=== PATIENT | male | born 1960 | race Caucasian/White ===

== ENCOUNTER → 2016-12-14 | Outpatient (CLI) | payer OTHER ==
[2016-12-12 14:26] VITALS: BMI 33.9
[2016-12-14 13:11] VITALS: BP 134/86; PULSE 125; RESP 16
--- NOTE | 2016-12-14 13:53 | P.CONS ---
History of Present Illness - Reason for Consult Consult date: 12/14/16 - History of Present Illness This is a follow-up visit on this 56 years old male with a chronic history of severe neck pain and low back pain, patient was seen in the past 2 years ago, currently did radiofrequency ablation of the sacroiliac joint, currently patient complaining of severe low back pain with radiation to the posterior aspect of his lower extremity bilaterally, and also is complaining of severe neck pain with radiation to the upper extremity associated with numbness and tingling sensations, he denies any motor or sensory deficits and he reported that the intensity of the pain is interfering with his quality of life, he tried medication management without any significant improvement, he tried physical therapy without any significant improvement he had only short-term benefit from physical therapy, and he is not interested in having surgical interventions Past Medical History Past Medical History: Diabetes Mellitus, Hypertension, Sleep Apnea/CPAP/BIPAP Additional Past Medical History / Comment(s): MIGRAINES, DIVERTICULITIS, UMBILICAL HERNIA, ATHLETES FOOT, RINGING IN EARS, DEGENERATIVE DISC DISEASE History of Any Multi-Drug Resistant Organisms: None Reported Past Surgical History: Hernia Repair, Orthopedic Surgery Additional Past Surgical History / Comment(s): RT ROTATOR CUFF , CARPAL TUNNEL, INGUINAL HERNIA REPAIR X3, ARTHROSCOPY CHACHO KNEES. RT ELBOW CUBITAL ULNAR SX, PREVIOUS PAIN CLINIC PROCEDURES, RECENT INJECTIONS IN KNEES, WRISTS, ELBOW Past Anesthesia/Blood Transfusion Reactions: Previous Problems w/ Anesthesia Additional Past Anesthesia/Blood Transfusion Reaction / Comm: STATES HE NEEDED MORE ANESTHESIA Past Psychological History: Anxiety Smoking Status: Never smoker Past Alcohol Use History: Occasional Past Drug Use History: None Reported Medications and Allergies Home Medications Medication Instructions Recorded Confirmed Type Aspirin 162 mg PO DAILY 09/22/13 12/12/16 History Ibuprofen [Ibuprofen] 1 tab PO QID 09/22/13 12/12/16 History Lactobacillus Acidophilus 1 tab PO DAILY 09/22/13 12/12/16 History [Acidophilus] Lisinopril-Hctz 20-25 mg 1 tab PO QAM 09/22/13 12/12/16 History [Zestoretic 20-25] metFORMIN HCL [Glucophage] 2,000 mg PO QAM 09/22/13 12/12/16 History Cyclobenzaprine [Flexeril] 10 mg PO TID 10/15/13 12/12/16 History Glimepiride [Amaryl] 4 mg PO QAM 11/24/13 12/12/16 History Dicyclomine [Bentyl] 20 mg PO DAILY 12/12/16 12/12/16 History Ergocalciferol [Vitamin D2] 50,000 unit PO Q7D 12/12/16 12/12/16 History HYDROcodone/APAP 10-325MG [[place] 1 tab PO Q6H 12/12/16 12/12/16 History 10-325] Nystatin 100,000Unit/gm Cream 1 applic TOPICAL DAILY PRN 12/12/16 12/12/16 History [Mycostatin Cream] Omeprazole 20 mg PO DAILY 12/12/16 12/12/16 History Triamcinolone 0.1% Cream [Kenalog] 1 applic TOPICAL DAILY 12/12/16 12/12/16 History amLODIPine BESYLATE [Norvasc] 5 mg PO DAILY 12/12/16 12/12/16 History Ammonium Lactate Cream [Lac-Hydrin 1 applic TOPICAL DAILY 12/14/16 12/14/16 History 12% Cream] Allergies Allergy/AdvReac Type Severity Reaction Status Date / Time tramadol HCl [From Ultram] Allergy Unknown Abdominal Verified 12/14/16 13:13 Pain pregabalin [From Lyrica] AdvReac Unknown INCREASED Verified 12/14/16 13:13 DEPRESSION propoxyphene napsylate AdvReac Unknown LOSS OF Verified 12/14/16 13:13 [From Darvocet-N 100] COORDINATION ANTIDEPRESSANTS AdvReac STATES Uncoded 12/14/16 13:13 INCREASE DEPRESSION Physical Exam Vitals: Vital Signs Pulse Resp BP Pulse Ox 12/14/16 12:54 125 H 16 134/86 97 Physical Examinations : 1-Constitutiona : Cooperative , not in acute distress . 2-HEENT : nech ; supple , no Lymphadenopathy , normal thyroid size . eyes : no ptosis , no icterus, no photophobia . ENT : normal of hearing , normal oropharynx , no Thrush . 3- Respiratory : Chest clear to auscultations Bilaterally , no wheezing , no Rhonchi . 4- Cardiovascular : regular rate and rhythem , S1 , S2 , no S3 , no S4. 5- Gastrointestinal : abdomen soft no tenderness , bowel sounds positive all four quadrents , no organomegally . 6- Genitourinary : Defferred . 7- neurologic : Cranial nerve II to XII intact , no focal neurological deffecit . 8-psychatric : alert , oriented X 3 , appropriate affect , intact judgment and insight . 9-Lymphatic : no Lymphadenopathy . 10- musculoskeltal : cervical spine = motor stregnth in the deltoid and biceps, motor stregnth biceps and the wrist extensors (C6) . motor stregnth in the triceps muscle . deep tendon reflexes normal at the biceps , l normal at Brachioradialis normal at the triceps positive cervical facet loading test . , Lumber spine = normal moter stegnth lower extremities ,thigh and legs .5/5 deep tendon reflexes : normal Knee Jerk , normal ankle Jerk . positive lumber facet Loading Test strait leg raising test positive at 30 degree , RT ,LT , Fabere test positive RT and positive LT . Sever tenderness over the Sacroiliac joint on the Right , and Left side Results Labs: MRI of the lumbar and cervical spine done in 2013 showed cervical multilevel cervical degenerative disc disease and the MRI of the lumbar spine showed patient had multilevel lumbar disc disease and lumbar facet arthropathy Assessment and Plan Plan: Assessment and plan= chronic low back pain secondary to lumbar degenerative disc disease , lumbar spondylosis with lumbar facet arthropathy ,and bilateral sacroiliitis chronic severe neck pain secondary to cervical degenerative disc disea Interventional pain management=scheduled patient to have diagnostic medial branch block lumbar area at L3-4/L4-L5/L5-S1,procedure risks and benefits and alternatives discussed with the patient and he agreed with the proceeding and I explained to the patient ,and he agreed with the preceding, if had had positive result ,then we will proceed with the radiofrequency ablation , Time with Patient: Greater than 30
== END | disposition home or self-care (01) ==
LOC: PNWHC3 12:41
PROVIDERS: ATTEND Specialist
DX: M51.36 Other intervertebral disc degeneration, lumbar region (principal); M50.30 Other cervical disc degeneration, unspecified cervical region; M47.816 Spondylosis without myelopathy or radiculopathy, lumbar region; M46.86 Other specified inflammatory spondylopathies, lumbar region; M46.1 Sacroiliitis, not elsewhere classified
CPT/HCPCS: 99211

== ENCOUNTER 2016-12-20 08:06 | Day surgery (SDC) | payer OTHER ==
[2016-12-20] MEDS ORDERED: LACTATED RINGERS 1,000 ML IV SCH (08:30)
[2016-12-20 08:37] VITALS: RESP 18; TEMP 98.2
[2016-12-20 08:49] LABS: Glucose,Whole Blood 159 mg/dL (75-99)
[2016-12-20] MEDS ORDERED: LIDOCAINE 1% 20 ML VIAL (10MG/ML) FOR IV START INTRADERMA ONE (08:50)
--- NOTE | 2016-12-20 09:08 | P.PCN ---
Date of Procedure: 12/20/16 Surgeon: Brandon Leone Pathology: none sent Condition: stable Disposition: PACU Description of Procedure: PREOPERATIVE DIAGNOSIS: L3-L4, L4-L5, and L5-S1 spondylosis without myelopathy and facet arthropathy. POSTOPERATIVE DIAGNOSIS: L3-L4, L4-L5, and L5-S1 spondylosis without myelopathy and facet arthropathy. PROCEDURE DESCRIPTION: Patient presents for L3-L4, L4-L5 and L5-S1 diagnostic medial branch blocks under fluoroscopic guidance. The procedure is performed using fluoroscopic guidance during needle placement to assure proper position and maximize safety. ANESTHESIA: Local with 1% lidocaine; conscious sedation with Versed only EBL: Minimal PROCEDURE INDICATION: Patient with lumbar facet arthropathy signs and symptoms, failed conservative therapy, here for diagnostic medial branch block #1 after having good relief from RFA in 2007. Pt does not take any blood thinning medications. PROCEDURE DESCRIPTION: The patient was seen and identified in the preoperative area. Risks, benefits, complications, and alternatives were discussed with the patient (including but not limited to incomplete pain relief, bleeding, infection, nerve damage, and allergies to medications), the patient agreed to proceed with the procedure and signed the consent after all questions were answered. Patient was taken to the OR and time out was completed to verify proper patient, position, laterality of pain, and allergies. Pt was placed in the prone position and a pillow was placed under the abdomen to reduce lumbar lordosis. The lumbosacral area was prepped and draped in the usual sterile fashion. Using oblique fluoroscopy, the eye of the "Shabbir dog" of right L4 vertebral body, which corresponds to the path of the medial branch originating from the level above, which is L3 in this case, was identified. Subsequently, a 22-gauge 3.5-inch spinal needle was inserted under fluoroscopic guidance toward the eye of the "Shabbir dog" of the right L4 vertebral body, corresponding to the junction of the superior articular process and the transverse process of the pedicle of the same level. After needle tip confirmation on lateral view and after negative aspiration for CSF and blood and without paresthesias, 1 mL of a 6 ml solution of 0.5% preservative-free bupivacaine and 40 mg Kenalog was injected. Subsequently the needle was withdrawn intact and the same procedure was repeated for the right L4, right L5, left L3, left L4, and left L5 medial branches which together with right L3 medial branch correspond to the sensory innervation of the bilateral L3-L4, L4-L5, and L5-S1 facet joints. Needle was withdrawn intact after each injection. At the end of the procedure, the skin was cleansed and bandages were applied. COMPLICATIONS: None. DISPOSITION/PLAN: The patient taken to the recovery area after the procedure in a stable condition for observation. Patient was reexamined prior to discharge and there were no issues. Patient was discharged home, accompanied by an adult, after meeting discharged criteria. Discharge instructions were give to the patient by the staff. Patient was specifically instructed not to drive today and to rest for the rest of the day. Patient will follow up for repeat MBB at next visit.
[2016-12-20] MEDS ORDERED: IV FLUID CONTINUATION 1,000 ML IV ONE (09:17)
[2016-12-20 09:20] VITALS: BP 138/75
[2016-12-20 09:31] LABS: Glucose,Whole Blood 142 mg/dL (75-99)
--- NOTE | 2016-12-20 09:34 | FL ---
Fluoroscopy HISTORY: Pain 9 seconds fluoroscopy time supplied to the referring clinician. 6 intraoperative C-arm images docume nt the procedure. See dictated report from anesthesia.
[2016-12-20 09:39] VITALS: PULSE 100
== END 2016-12-20 09:53 | disposition home or self-care (01) ==
LOC: ORPAIN 08:06
PROVIDERS: ATTEND Anesthesiology
DX: G89.29 Other chronic pain (principal); M47.816 Spondylosis without myelopathy or radiculopathy, lumbar region; M47.817 Spondylosis without myelopathy or radiculopathy, lumbosacral region; M46.96 Unspecified inflammatory spondylopathy, lumbar region; M46.1 Sacroiliitis, not elsewhere classified; M50.30 Other cervical disc degeneration, unspecified cervical region; I10 Essential (primary) hypertension; E11.9 Type 2 diabetes mellitus without complications; F41.9 Anxiety disorder, unspecified; G47.30 Sleep apnea, unspecified; Z99.89 Dependence on other enabling machines and devices; Z79.82 Long term (current) use of aspirin; Z79.899 Other long term (current) drug therapy; Z79.1 Long term (current) use of non-steroidal anti-inflammatories (NSAID); Z79.891 Long term (current) use of opiate analgesic; Z79.84 Long term (current) use of oral hypoglycemic drugs; Z88.8 Allergy status to other drugs, medicaments and biological substances
CPT/HCPCS: 64493; 64494; 64495; 99152; J2250; J3301

== ENCOUNTER → 2017-05-16 | Outpatient (CLI) | payer OTHER ==
--- NOTE | 2017-05-16 15:59 | XR ---
Left shoulder HISTORY: Left shoulder pain 3 views of the left shoulder No comparisons Mild arthropathy present at the acromioclavicular joint. Bone mineralization, joint spaces and alignm ent are maintained. Left lung apex as visualized is normal. No fracture or dislocation. IMPRESSION: Mild acromioclavicular joint arthropathy, consider shoulder MRI.
== END | disposition home or self-care (01) ==
LOC: RADXRMAIN 15:03
PROVIDERS: ATTEND Family Medicine
DX: M12.812 Other specific arthropathies, not elsewhere classified, left shoulder (principal)

== ENCOUNTER → 2017-05-30 | Outpatient (CLI) | payer OTHER ==
--- NOTE | 2017-05-30 23:13 | MR ---
EXAMINATION TYPE: MR shoulder LT wo con DATE OF EXAM: 05/30/2017 COMPARISON: Radiograph 05/16/2017 HISTORY: 57-year-old male with left shoulder pain, decreased range of motion for 3 months, no trauma TECHNIQUE: Multiplanar, multisequence imaging of the left shoulder is performed without contrast. FINDINGS: There is intermediate signal within the intracapsular portion of the lung and biceps tendon. The extr acapsular portion remains appropriately situated along the bicipital groove. Some inhomogeneous signal of the subscapularis tendon. The majority of the subscapularis tendon is in tact. Mild degenerative joint space narrowing and marginal spurring with capsular hypertrophy at the acromi oclavicular joint. Mild subacromial/subdeltoid bursal effusion. Heterogeneous signal both supraspinatus and infraspinatus tendons. There is intrasubstance change and tear involving the anterior mid supraspinatus tendon at the footprint measuring 1.2 cm AP. There is bursal sided fraying of the infraspinatus tendon and likely some shallow articular sided or intrasubs tance tear of the infraspinatus tendon with some edema and fluid seen delaminating along the infraspi natus myotendinous junction. No high-grade or full-thickness tear seen of the rotator cuff. Minimal fatty streaks throughout the rotator cuff musculature. Evaluation of the glenohumeral joint shows some increased signal along the posterior superior labrum with suggestion of a tiny 4 mm para labral cyst along the superior aspect of the posterior labrum, co evgeny image 13. Overall glenohumeral joint articular cartilage appears maintained. No Hill-Sachs deformity or os acromiale. No suspicious bone marrow replacement. IMPRESSION: 1. Diffuse rotator cuff tendinosis. There is intrasubstance tear of the anterior to mid supraspinatus tendon, bursal sided fraying of the infraspinatus tendon, and either shallow articular sided vs intr asubstance tearing of the infraspinatus tendon allowing for some fluid to delaminate along the infras pinatus myotendinous junction. 2. No high-grade partial or full-thickness rotator cuff tear. Minimal fatty streaks throughout the ro tator cuff musculature. 3. Mild AC joint narrowing, mild subacromial/subdeltoid bursitis, and mild intracapsular long head bi ceps tendinosis. 4. Degenerative signal in the posterior superior labrum, possible small SLAP tear with a tiny 4 mm pa ralabral cyst.
== END | disposition home or self-care (01) ==
LOC: RADMRIMAIN 21:11
PROVIDERS: ATTEND Family Medicine
DX: M75.102 Unspecified rotator cuff tear or rupture of left shoulder, not specified as traumatic (principal); M25.812 Other specified joint disorders, left shoulder; M67.814 Other specified disorders of tendon, left shoulder

== ENCOUNTER → 2017-06-27 | Outpatient (CLI) | payer OTHER ==
--- NOTE | 2017-06-27 13:32 | XR ---
Left foot HISTORY: Pain 3 views of the left foot Second digit shows suspected posterior dislocation of second metatarsal tarsal phalangeal joint. No e vident fracture. Hallux valgus deformity present at the first digit with some soft tissue swelling. D egenerative changes are present at the intertarsal joints, tarsometatarsal joints. IMPRESSION: Second digit dislocation, osteoarthritis
== END | disposition home or self-care (01) ==
LOC: RADXRMAIN 11:34
PROVIDERS: ATTEND Podiatrist Foot Surgery
DX: S93.12 Dislocation of metatarsophalangeal joint (principal); M19.072 Primary osteoarthritis, left ankle and foot

== ENCOUNTER → 2017-10-31 | Outpatient (CLI) | payer OTHER ==
--- NOTE | 2017-10-31 13:17 | EST ---
EXERCISE STRESS DATE OF SERVICE: 10/31/2017 AGE: 57 SEX: Male HT: 5'5" WT: 210 PROTOCOL: Exercise treadmill stress test STAGE: I DURATION OF EXERCISE: 2 minutes 33 seconds HEART RATE REST: 94 BLOOD PRESSURE REST: 134/77 MAXIMUM HEART RATE ACHIEVED: 140 MAXIMUM BLOOD PRESSURE: 196/85 85% MPHR: 139 100% MPHR: 163 METS: 4.0 INDICATIONS: Chest pain. CLINICAL INFORMATION: STRESS DATA: Heart rate 94, pressure is 134/77 mmHg. Baseline EKG showed sinus rhythm. The patient exercised on the treadmill according to Guerrero protocol for a total of 2 minutes 33 seconds and achieved 4.0 METs. Max heart rate was 140 beats per minute which is about 85% of maximum predicted heart rate. Maximum blood pressure is 196/85 mmHg. Clinically the patient developed chest tightness post exercise. The EKG showed about [address]-segment changes, most prominent in the inferior leads. CONCLUSIONS: 1. Poor exercise tolerance. 2. Chest discomfort on recovery phase. 3. Mild EKG changes in response to exercise did not meet the criteria for ischemia. 4. If the patient continues to have chest discomfort, stress test with imaging modality is recommended. MMODL / IJN: [id number] /
== END | disposition home or self-care (01) ==
LOC: RADNMMAIN 10:43
PROVIDERS: ATTEND Family Medicine
DX: R07.89 Other chest pain (principal); R94.31 Abnormal electrocardiogram [ECG] [EKG]
CPT/HCPCS: 93017

== ENCOUNTER 2017-11-15 09:28 | Day surgery (SDC) | payer OTHER ==
[~2017-11-15 09:28] MED LIST: LACTATED RINGERS 1,000 ML IV SCH
[2017-11-15 10:31] VITALS: TEMP 98.6
[2017-11-15] MEDS ORDERED: LIDOCAINE 1% 20 ML VIAL (10MG/ML) FOR IV START INTRADERMA ONE (10:42)
[2017-11-15 10:43] LABS: Glucose,Whole Blood 107 mg/dL (75-99)
--- NOTE | 2017-11-15 11:40 | P.PCN ---
Date of Procedure: 11/15/17 Procedure(s) Performed: PREOPERATIVE DIAGNOSIS: 1-Lumbar Spondylosis with Facet Arthropathy without myelopathy. POSTOPERATIVE DIAGNOSIS: 1- Lumbar Spondylosis with Facet Arthropathy without myelopathy. PROCEDURES : Left Radiofrequency thermocoagulation, L3-L4, L4-L5, and L5-S1 medial branch, with fluoroscopic guidance ANESTHESIA: Moderate sedation with intravenous versed 4 mg and fentaneyl 100 mcg, and local infiltration with Ropivacaine 0.5 % . EBL: Minimal PROCEDURE INDICATION: The patient with low back pain secondary to lumbar facet arthropathy who had more than 50% relief of her pain with previous diagnostic lumbar medial branch block with bupivacaine. PROCEDURE DESCRIPTION / TECHNIQUE: The patient was seen and identified in the preoperative area. Risks, benefits, complications, including but not limited to risk of infection ,bleeding , allergic reactions to the medications and no complete pain releife , and alternatives were discussed with the patient, the patient agreed to proceed with the procedure and signed the consent. IV was started. Vital signs remained stable throughout the procedure. Patient was taken to the OR and time out was completed. The patient was placed in the prone position on the procedure table. The lumber area was prepped and draped in the usual sterile fashion. . Vital signs were closely monitored during the procedure .IV sedation was used during the procedure to decrease patients anxiety. Using AP and then oblique fluoroscopy, the ``eye of the Shabbir dog corresponding to the connection between the superior and transverse articular processes of left L3, L4, and L5 were identified, marked, and localized with 1 % lidocaine. Subsequently, a [id number] radiofrequency cannula with a 10- mm active tip was advanced guided by fluoroscopy to each of the ``eyes of the Shabbir dog at left L3, L4, and L5. Each site then underwent sensory testing at 50 Hz and 0 to 1 volt and motor testing at 2.5 Hz and 0 to 3 volt with local stimulation, but no radicular symptoms down the legs. Thereafter the left L3-4, L4-5, and L5-S1 sites underwent radiofrequency thermocoagulation at 80 degrees celsius for 90 seconds after injecting 0.5 ml of PF Ropivacaine 1ml then After the thermocoagulation done , 1 ml of the block solution containing Kenalog 40 mg and 3 ml of Ropivacaine 0.5% was injected at the left L3-4 , L4-5 , and L5-S1, levels after negative aspiration of CSF and blood and with no paresthesias. Cannulas were retracted while injecting lidocaine 1% until the needle is out. At the end of the procedure, the skin was cleansed and bandages were applied. COMPLICATIONS: No acute complications. DISPOSITION / PLANS: The patient was placed in a supine position and transferred to the recovery area in a stable condition for observation and was discharged from the recovery room after meeting discharge criteria. Home discharge instructions given to the patient by the staff. The patient was reexamined prior to discharge. The patient will schedule a follow up in the clinic in 2-4 weeks. we will Schedule,the patient to have radiofrequency on the right side
[2017-11-15] MEDS ORDERED: IV FLUID CONTINUATION 1,000 ML IV ONE (11:45)
[2017-11-15 11:52] LABS: Glucose,Whole Blood 88 mg/dL (75-99)
--- NOTE | 2017-11-15 11:55 | FL ---
EXAMINATION TYPE: FL guided pain mgmt statistic DATE OF EXAM: 11/15/2017 HISTORY: Flouroscopy time 7 seconds of fluoroscopy provided. IMPRESSION: 1. Fluoroscopy time.
[2017-11-15 12:07] VITALS: BP 143/87; PULSE 98; RESP 18
== END 2017-11-15 12:21 | disposition home or self-care (01) ==
LOC: ORPAIN 09:28
PROVIDERS: ATTEND Specialist
DX: M47.816 Spondylosis without myelopathy or radiculopathy, lumbar region (principal); I25.10 Atherosclerotic heart disease of native coronary artery without angina pectoris; I10 Essential (primary) hypertension; G47.33 Obstructive sleep apnea (adult) (pediatric); E11.9 Type 2 diabetes mellitus without complications; Z88.5 Allergy status to narcotic agent; Z88.8 Allergy status to other drugs, medicaments and biological substances
CPT/HCPCS: 64635; 64636 ×2; J2250; J3301; J3010; 99152

== ENCOUNTER → 2017-12-03 | Day surgery (SDC) | payer OTHER ==
[2017-11-30 10:01] VITALS: BMI 34.9
[~2017-12-03] MED LIST changes: +LACTATED RINGERS 1,000 ML IV ONE
[2017-12-03 07:28] VITALS: TEMP 98.4
[2017-12-03 07:32] LABS: Glucose,Whole Blood 114 mg/dL (75-99)
--- NOTE | 2017-12-03 07:54 | P.PCN ---
Date of Procedure: 12/03/17 Surgeon: Everett Hare Pathology: none sent Condition: stable Disposition: PACU Description of Procedure: PREOPERATIVE DIAGNOSIS: Lumbar spondylosis without myelopathy, morbid obesity POSTOPERATIVE DIAGNOSIS: Lumbar spondylosis without myelopathy,morbid obesity PROCEDURES : Radiofrequency thermocoagulation, L3-L4, L4-L5, and L5-S1 medial branch, with fluoroscopic guidance ANESTHESIA: IV moderate conscious sedation with versed and fentanyl and local infiltration with lidocaine 1% 5 ml EBL: Minimal PROCEDURE INDICATION: The patient with low back pain secondary to lumbar facet arthropathy who had more than 50% relief of her pain with previous diagnostic lumbar medial branch block with bupivacaine. PROCEDURE DESCRIPTION / TECHNIQUE: The patient was seen and identified in the preoperative area. Risks, benefits, complications, including but not limited to risk of infection ,bleeding , allergic reactions to the medications and no complete pain relief , and alternatives were discussed with the patient, the patient agreed to proceed with the procedure and signed the consent. IV was started. Vital signs remained stable throughout the procedure. Patient was taken to the OR and time out was completed. The patient was placed in the prone position on the procedure table. The lumber area was prepped and draped in the usual sterile fashion. . Vital signs were closely monitored during the procedure .IV sedation was used during the procedure to decrease patients anxiety. The target points were identified as follows: For the L5-S1 level which corresponds to the dorsal ramus of L5 the target point was at the superior medial aspect of the sacral ala on the Rt- side of the spine on the AP view of fluoroscopy and for the L2, L3, and L4 medial branches the target points were at the connection between the transverse process and the superior articular process of L3, L4, and L5 vertebra respectively on the Rt oblique view of fluoroscopy. skin was marked, and localized with 1% lidocaine at these points. Subsequently, an 18 [id number] radiofrequency needles with a 10-mm curved active tips were advanced guided by fluoroscopy to each of the target points mentioned above in a superior medial direction to get the active tips as parallel as possible to the medial branches tracks. AP, oblique, and lateral views of fluoroscopy were used to verify needle tips position. Each level then underwent motor testing at 2.5 Hz and 0 to 3 volt with local stimulation, but no radicular symptoms down the legs. Thereafter radiofrequency thermocoagulation at 80 degrees celsius for 90 seconds after injecting 1 ml of PF the ropivacaine 0.5%(3 mls) with 40 mg of Depo-Medrol. At the end of the procedure, the skin was cleansed and bandages were applied. COMPLICATIONS: No acute complications. DISPOSITION / PLANS: The patient was placed in a supine position and transferred to the recovery area in a stable condition for observation and was discharged from the recovery room after meeting discharge criteria. Home discharge instructions given to the patient by the staff. The patient was reexamined prior to discharge. The patient will schedule a follow up in the clinic in 2-4 weeks.
[2017-12-03 08:14] VITALS: BP 107/71; PULSE 101; RESP 16
--- NOTE | 2017-12-03 08:54 | FL ---
EXAMINATION TYPE: FL guided pain mgmt statistic DATE OF EXAM: 12/03/2017 HISTORY: Flouroscopy time 15 seconds of fluoroscopy provided. IMPRESSION: 1. Fluoroscopy time.
== END | disposition home or self-care (01) ==
LOC: ORPAIN 06:36
PROVIDERS: ATTEND Anesthesiology
DX: M47.816 Spondylosis without myelopathy or radiculopathy, lumbar region (principal); E11.9 Type 2 diabetes mellitus without complications; I10 Essential (primary) hypertension; E66.01 Morbid (severe) obesity due to excess calories; Z88.5 Allergy status to narcotic agent; Z88.8 Allergy status to other drugs, medicaments and biological substances; Z68.34 Body mass index [BMI] 34.0-34.9, adult
CPT/HCPCS: 64635; 64636 ×2; J2250; J1030; J3010; 99152

== ENCOUNTER → 2018-01-01 | Outpatient (CLI) | payer OTHER ==
[2018-01-01 14:12] VITALS: BP 146/90; PULSE 102; RESP 18
--- NOTE | 2018-01-01 14:48 | P.PAINPG ---
Subjective Progress Note Date: 01/01/18 This is follow-up visit for this patient with a history of severe and chronic low back pain secondary to lumbar degenerative disc diseases , lumbar spondylosis with facet arthropathy, We have done interventional pain procedures radiofrequency ablation of the medial branch lumbar area, and that helped his low back pain significantly, he is currently complaining of severe left buttock pain, with occasional radiation to the groin area, Patients currently on Motrin 600 mg every 6 hours ,[place] 10/325 every 8 hours, Flexeril 10 mg every 8 hours Patient denies any side effects of the medication, denies excessive drowsiness or sleepiness, denies suicidal ideation, and reports that the current pain medication is helping to control the pain and improve activity of daily living Patient denies any motor or sensory deficit , patient denies any fever or night sweats, denies any change in the bowel movements or urination Physical Examinations : 1-Constitutional : Cooperative , not in acute distress . 2-HEENT : nech ; supple , no Lymphadenopathy , no Thyromegaly , normal thyroid size . eyes : no ptosis , no icterus, no photophobia . ENT : normal of hearing , normal oropharynx , no Thrush . 3- Respiratory : Chest clear to auscultations Bilaterally , no wheezing , no Rhonchi . 4- Cardiovascular : regular rate and rhythem , S1 , S2 , no S3 , no S4. 5- Gastrointestinal : abdomen soft no tenderness , bowel sounds positive all four quadrents , no organomegally . 6- Genitourinary : Defferred . 7- neurologic: Cranial nerve II to XII intact , no focal neurological deffecit . 8- Psychatric: alert , oriented X 3 , appropriate affect , intact judgment and insight . 9- Lymphatic : no Lymphadenopathy . 10- Musculoskeltal : exams of the cervical spine = motor strength normal bilateral upper extremities Ignorance of the left shoulder = abduction , and lateral rotation of the left shoulder associated with severe pain exams of the Lumber spine =motor strength lower extremities ,thigh and legs .5/5 deep tendon reflexes : normal Knee Jerk , normal ankle Jerk . lumber facet Loading Test negative Range of motion: Range of motion in flexion of the lumbar spine 30 degrees Range of motion range of motion of extension of the lumbar spine 10 Sever tenderness over the Sacroiliac joint on the Left side Assessment and plan = Chronic low back pain secondary to lumbar degenerative disc disease , lumbar spondylosis with facet arthropathy without myelopathy , left sacroiliitis Pain improved after the radiofrequency ablation of the medial branch lumbar area. Currently patient having pain secondary to left sacroiliitis , he will be good candidate to have left-sided sacroiliac joint steroid injections Patient will continue to use Motrin, [place] 10/325 every 6 hours, Flexeril 10 mg every 8 hours when necessary, his current prescription with refills from his primary care Objective - Vital Signs Vital signs: Vital Signs Temp Pulse 102 H 01/01/18 14:01 Resp 18 01/01/18 14:01 BP 146/90 01/01/18 14:01 Pulse Ox 97 01/01/18 14:01 Intake & Output 12/31/17 01/01/18 01/01/18 18:59 06:59 18:59 Weight 95.254 kg PQRS Measure Charge Sheet Measure #130: Documentation of Current Meds in Medical Chart: Patient's medications documented in chart Measure #226: Tobacco Use: Screen & Cessation Intervention: Pt not a tobacco user Measure #111: Pneumonia Vaccination: Pneumococcal vaccine NOT administered or previously given Measure #47: Advance Care Plan: Advance care planning discussed & documented, pt chose/unable to give Measure #412: Opioid Treatment Agreement: No documentation of signed opioid treatment agreement Measure #408: Opioid Therapy Follow-up Evaluation: Patient had NO f/u eval minimum every 3 months during opioid therapy Measure #317: Preventitive Care & Scrn High Bld Press & F/U: Pre-hypertensive or hypertensive BP documented, pt will f/u with PCP Measure #128: Body Mass Index (BMI) Screening & Follow-up: BMI documented ABOVE normal parameters - f/u documented Measure #131: Pain Assessment & Follow-up: Pain positive & plan documented, Follow-up scheduled Measure #431: Unhealthy Alcohol Use Preventative Care & Scrn: Patient not identified as an unhealthy alcohol user PQRS Narrative: Smoking Status Never smoker Do You Want the Pneumonia No Vaccine AT THIS TIME? Blood Pressure 146/90 Pain Intensity [Left Anterior 0 Groin] Hx Alcohol Use (MH) No Home Medications: Ambulatory Orders Aspirin 81 mg PO DAILY 09/22/13 Ibuprofen 600 mg PO QID 09/22/13 Lisinopril-Hctz 20-25 mg [Zestoretic 20-25] 1 tab PO QAM 09/22/13 metFORMIN HCL [Glucophage] 2,000 mg PO HS 09/22/13 Cyclobenzaprine [Flexeril] 10 mg PO TID PRN 10/15/13 Dicyclomine [Bentyl] 20 mg PO QAM PRN 12/12/16 Ergocalciferol [Vitamin D2] 50,000 unit PO Q30D 12/12/16 HYDROcodone/APAP 10-325MG [[place] 10-325] 1 tab PO Q6H 12/12/16 Nystatin 100,000Unit/gm Cream [Mycostatin Cream] 1 applic TOPICAL DAILY PRN Omeprazole 20 mg PO QAM 12/12/16 Triamcinolone 0.1% Cream [Kenalog 0.1% Cream] 1 applic TOPICAL DAILY PRN Ammonium Lactate Cream [Lac-Hydrin 12% Cream] 1 applic TOPICAL DAILY PRN Insulin Glargine,Hum.rec.anlog [Basaglar Kwikpen U-100] 70 unit SQ HS 11/15/17 Hydrocortisone Cream [Hydrocortisone 2.5% Cream] 1 applic TOPICAL BID 11/30/17 Lisinopril-Hctz 10-12.5 mg [Zestoretic 10-12.5] 1 tab PO HS 11/30/17 metroNIDAZOLE 0.75% CREAM [Metrocream] 1 applic TOPICAL DAILY 11/30/17 Controlled Substance Measures - Controlled Substance Measures Is patient prescribed a controlled substance at discharge?: No When asked, does pt state using other controlled substances?: No If prescribed controlled substance>3 days was MAPS reviewed?: No If Rx opioid, was Start Talking consent form obtained?: No If opioid is for acute pain is fill amount 7 days or less?: No Was information provided regarding opioid addiction?: No
== END | disposition home or self-care (01) ==
LOC: PNWHC3 13:01
PROVIDERS: ATTEND Anesthesiology
DX: G89.29 Other chronic pain (principal); M54.5 Low back pain; M51.36 Other intervertebral disc degeneration, lumbar region; M47.816 Spondylosis without myelopathy or radiculopathy, lumbar region; M46.86 Other specified inflammatory spondylopathies, lumbar region; M46.1 Sacroiliitis, not elsewhere classified; Z79.1 Long term (current) use of non-steroidal anti-inflammatories (NSAID); Z79.891 Long term (current) use of opiate analgesic; Z79.899 Other long term (current) drug therapy; Z98.890 Other specified postprocedural states
CPT/HCPCS: 99211

== ENCOUNTER 2018-01-17 06:52 | Day surgery (SDC) | payer OTHER ==
[2018-01-11 15:42] VITALS: BMI 35.2
[~2018-01-17 06:52] MED LIST changes: -LACTATED RINGERS 1,000 ML IV ONE; -LACTATED RINGERS 1,000 ML IV SCH; +SODIUM CHLORIDE 0.9% 500 ML 500 ML IV SCH
[2018-01-17 07:19] VITALS: RESP 16; TEMP 98.3
[2018-01-17] MEDS ORDERED: LIDOCAINE 1% 20 ML VIAL (10MG/ML) FOR IV START INTRADERMA ONE (07:34)
--- NOTE | 2018-01-17 08:19 | P.PCN ---
Date of Procedure: 01/17/18 Procedure(s) Performed: Procedure= Left sacral iliac joints steroid injection under fluoroscopy guidance Preoperative diagnosis= 1- left sacroiliitis 2-lumbar degenerative disc disease 3-lumbar facet arthropathy Postoperative diagnosis=1- left sacroiliitis 2-lumbar degenerative disc disease 3-lumbar facet arthropathy Complication = none Condition= stable Anesthesia= moderate sedation with intravenous Versed 3 mg , and fentanyl 100 micrograms and local infiltration with lidocaine 1% 3mL Indication for the procedure= patient complaining of low back pain , examination was positive for severe tenderness over the sacroiliac joints bilaterally and patient diagnosed with sacroiliitis, for this reason he/ she was good candidate for sacroiliac joint steroid injection. Description of the procedure= procedure risk and benefits discussed with the patient, including but not limited, risk of infection and bleeding, and ALLERGIC reaction to the medication and not complete pain relief and patient agreed with the preceding patient taken to the operating room, placed in prone position or standard monitors applied to the patient then after induction of anesthesia back prepped with chlorhexidine 3 times , Then under strict sterile technique, the left sacroiliac joint the which was identified under fluoroscopy guidance been local infiltration of the skin and subcu interstitial with lidocaine 1% then 25-gauge Quincke Needle advanced slowly under fluoroscopy and placed in the left sacroiliac joint needle placement confirmed with AP and oblique and lateral view and after appropriate needle placement confirmed and after negative aspiration, or heme , then Ropivacaine 0.5% 4 mL, and 40 mg of Kenalog mixed together and injected in the right sacroiliac joint after negative aspiration patient tolerated the procedure well without any complication.
[2018-01-17] MEDS ORDERED: IV FLUID CONTINUATION 500 ML IV ONE (08:24)
[2018-01-17 08:55] VITALS: BP 115/65; PULSE 102
--- NOTE | 2018-01-17 09:06 | FL ---
EXAMINATION TYPE: FL guided pain mgmt statistic DATE OF EXAM: 01/17/2018 HISTORY: Flouroscopy time 3 seconds of fluoroscopy provided. IMPRESSION: 1. Fluoroscopy time.
[2018-01-17 09:34] LABS: Glucose,Whole Blood 141 mg/dL (75-99)
== END 2018-01-17 09:25 | disposition home or self-care (01) ==
LOC: ORPAIN 06:52
PROVIDERS: ATTEND Specialist
DX: M46.1 Sacroiliitis, not elsewhere classified (principal); M51.36 Other intervertebral disc degeneration, lumbar region; M47.816 Spondylosis without myelopathy or radiculopathy, lumbar region; M50.30 Other cervical disc degeneration, unspecified cervical region
CPT/HCPCS: J2250; J3301; J3010; G0260; 27096

== ENCOUNTER → 2018-02-11 | Day surgery (SDC) | payer OTHER ==
[2018-02-05 12:39] VITALS: BMI 34.9
[~2018-02-11] MED LIST changes: +SODIUM CHLORIDE 0.9% 500 ML 500 ML IV ONE
[2018-02-11 09:31] VITALS: TEMP 98.8
[2018-02-11 09:34] LABS: Glucose,Whole Blood 125 mg/dL (75-99)
--- NOTE | 2018-02-11 09:46 | P.PCN ---
Date of Procedure: 02/11/18 Procedure(s) Performed: Procedure= bilateral sacral iliac joints steroid injection under fluoroscopy guidance Preoperative diagnosis= 1- Left sacroiliitis 2-lumbar degenerative disc disease 3-lumbar facet arthropathy Postoperative diagnosis=1- Left sacroiliitis 2-lumbar degenerative disc disease 3-lumbar facet arthropathy Complication = none Condition= stable Anesthesia= moderate sedation with intravenous Versed 2 mg , and fentanyl 100 micrograms Indication for the procedure= patient complaining of low back pain , examination was positive for severe tenderness over the sacroiliac joints bilaterally and patient diagnosed with sacroiliitis, for this reason he/ she was good candidate for sacroiliac joint steroid injection. Description of the procedure= procedure risk and benefits discussed with the patient, including but not limited, risk of infection and bleeding, and ALLERGIC reaction to the medication and not complete pain relief and patient agreed with the preceding patient taken to the operating room, placed in prone position or standard monitors applied to the patient then after induction of anesthesia back prepped with chlorhexidine 3 times , Then under strict sterile technique, the Left sacroiliac joint the which was identified under fluoroscopy guidance been local infiltration of the skin and subcu interstitial with lidocaine 1% then 22-gauge Quincke Needle advanced slowly under fluoroscopy and placed in the Left sacroiliac joint needle placement confirmed with AP and oblique and lateral view and after appropriate needle placement confirmed and after negative aspiration, or heme , then Ropivacaine 0.5% 3 mL, and 40 mg of Kenalog mixed together and injected in the right sacroiliac joint after negative aspiration patient tolerated the procedure well without any complication.
[2018-02-11 10:06] VITALS: BP 116/57; RESP 20
[2018-02-11 10:11] VITALS: PULSE 109
--- NOTE | 2018-02-11 10:39 | FL ---
EXAMINATION TYPE: FL guided pain mgmt statistic DATE OF EXAM: 02/11/2018 HISTORY: Flouroscopy time 4 seconds of fluoroscopy provided. IMPRESSION: 1. Fluoroscopy time.
== END | disposition home or self-care (01) ==
LOC: ORPAIN 09:08
PROVIDERS: ATTEND Specialist
DX: M46.1 Sacroiliitis, not elsewhere classified (principal); M51.36 Other intervertebral disc degeneration, lumbar region; M46.96 Unspecified inflammatory spondylopathy, lumbar region
CPT/HCPCS: J2250; J1030; J3010; G0260; 27096

== ENCOUNTER → 2018-03-14 | Outpatient (CLI) | payer OTHER ==
--- NOTE | 2018-03-14 15:03 | XR ---
Left hip HISTORY: Pain 2 views of the left hip Bone mineralization, joint spaces and alignment are maintained. There is mild marginal spurring prese nt. Slight excrescence thought present along the femoral neck. Probable phleboliths within the pelvis . IMPRESSION: Suspect mild osteoarthritis, correlate for possible femoral acetabular impingement.
== END | disposition home or self-care (01) ==
LOC: RADXRMAIN 14:03
PROVIDERS: ATTEND Family Medicine
DX: M25.552 Pain in left hip (principal)
CPT/HCPCS: 73502

== ENCOUNTER → 2018-03-25 | Outpatient (CLI) | payer OTHER ==
[2018-03-25 12:01] VITALS: BP 106/66; PULSE 89; RESP 18
--- NOTE | 2018-03-25 12:45 | P.PN ---
Subjective Progress Note Date: 03/25/18 This is follow-up visit for this patient with a history of severe and chronic low back pain secondary to lumbar degenerative disc diseases , lumbar spondylosis with facet arthropathy, and sacroiliitis We have done interventional pain procedures radiofrequency ablation of the medial branch lumbar area, and that helped his low back pain significantly, and we have done left-sided sacroiliac joint steroid injection 2 , and right side sacroiliac joint steroid injections 1 , he reported that he has more than 60% decrease in his pain level after each injection but the pain relief was only for a few weeks ,he is currently complaining of severe in buttock area, with occasional radiation to the groin area, Patients currently on Motrin 600 mg every 6 hours ,[place] 10/325 every 8 hours, Flexeril 10 mg every 8 hours Patient denies any side effects of the medication, denies excessive drowsiness or sleepiness, denies suicidal ideation, and reports that the current pain medication is helping to control the pain and improve activity of daily living Patient denies any motor or sensory deficit , patient denies any fever or night sweats, denies any change in the bowel movements or urination Physical Examinations : 1-Constitutional : Cooperative , not in acute distress . 2-HEENT : nech ; supple , no Lymphadenopathy , no Thyromegaly , normal thyroid size . eyes : no ptosis , no icterus, no photophobia . ENT : normal of hearing , normal oropharynx , no Thrush . 3- Respiratory : Chest clear to auscultations Bilaterally , no wheezing , no Rhonchi . 4- Cardiovascular : regular rate and rhythem , S1 , S2 , no S3 , no S4. 5- Gastrointestinal : abdomen soft no tenderness , bowel sounds positive all four quadrents , no organomegally . 6- Genitourinary : Defferred . 7- neurologic: Cranial nerve II to XII intact , no focal neurological deffecit . 8- Psychatric: alert , oriented X 3 , appropriate affect , intact judgment and insight . 9- Lymphatic : no Lymphadenopathy . 10- Musculoskeltal : exams of the cervical spine = motor strength normal bilateral upper extremities Ignorance of the left shoulder = abduction , and lateral rotation of the left shoulder associated with severe pain exams of the Lumber spine =motor strength lower extremities ,thigh and legs .5/5 deep tendon reflexes : normal Knee Jerk , normal ankle Jerk . lumber facet Loading Test negative Range of motion: Range of motion in flexion of the lumbar spine 30 degrees Range of motion range of motion of extension of the lumbar spine 10 Sever tenderness over the Sacroiliac joint bilaterally, but it's more severe on the left side Assessment and plan = Chronic low back pain secondary to lumbar degenerative disc disease , lumbar spondylosis with facet arthropathy without myelopathy , left sacroiliitis Pain improved after the radiofrequency ablation of the medial branch lumbar area. Currently patient having pain secondary to bilateral sacroiliitis , he will be good candidate to have the frequency ablation of the left-sided sacroiliac joint ( RFA left-sided L5-S1 dorsal ramus and RFA of the lateral branches S1 and S2 and S3 , and at the same time we can schedule patient to have right side sacroiliac joint steroid injection Patient will continue to use Motrin, [place] 10/325 every 6 hours, Flexeril 10 mg every 8 hours when necessary, his current prescription with refills from his primary care PQRS Measure Charge Sheet Measure #130: Documentation of Current Meds in Medical Chart: Patient's medications documented in chart Measure #226: Tobacco Use: Screen & Cessation Intervention: Pt not a tobacco user Measure #111: Pneumonia Vaccination: Pneumococcal vaccine NOT administered or previously given Measure #47: Advance Care Plan: Advance care planning discussed & documented, pt chose/unable to give Measure #412: Opioid Treatment Agreement: No documentation of signed opioid treatment agreement Measure #408: Opioid Therapy Follow-up Evaluation: Patient had NO f/u eval minimum every 3 months during opioid therapy Measure #317: Preventitive Care & Scrn High Bld Press & F/U: Normal blood pressure ,BP documented, pt will f/u with PCP Measure #128: Body Mass Index (BMI) Screening & Follow-up: BMI documented ABOVE normal parameters - f/u documented Measure #131: Pain Assessment & Follow-up: Pain positive & plan documented, Follow-up scheduled Measure #431: Unhealthy Alcohol Use Preventative Care & Scrn: Patient not identified as an unhealthy alcohol user PQRS Narrative: - Controlled Substance Measures Is patient prescribed a controlled substance at discharge?: No When asked, does pt state using other controlled substances?: No If prescribed controlled substance>3 days was MAPS reviewed?: No If Rx opioid, was Start Talking consent form obtained?: No If opioid is for acute pain is fill amount 7 days or less?: No Was information provided regarding opioid addiction?: No Objective - Vital Signs Vital signs: Vital Signs Temp Pulse 89 03/25/18 11:51 Resp 18 03/25/18 11:51 BP 106/66 03/25/18 11:51 Pulse Ox 97 03/25/18 11:51 Intake & Output 03/24/18 03/25/18 03/25/18 18:59 06:59 18:59 Weight 210 kg
== END ==
LOC: PNWHC3 10:44
PROVIDERS: ATTEND Specialist
DX: G89.29 Other chronic pain (principal); M51.36 Other intervertebral disc degeneration, lumbar region; M47.816 Spondylosis without myelopathy or radiculopathy, lumbar region; M46.96 Unspecified inflammatory spondylopathy, lumbar region; M46.1 Sacroiliitis, not elsewhere classified; Z79.891 Long term (current) use of opiate analgesic
CPT/HCPCS: 99211

== ENCOUNTER 2018-04-09 06:51 | Day surgery (SDC) | payer OTHER ==
[2018-04-05 10:24] VITALS: BMI 34.9
[~2018-04-09 06:51] MED LIST changes: -SODIUM CHLORIDE 0.9% 500 ML 500 ML IV ONE
[2018-04-09] MEDS ORDERED: LIDOCAINE 1% 20 ML VIAL (10MG/ML) FOR IV START INTRADERMA ONE (06:58)
[2018-04-09 07:14] VITALS: RESP 18; TEMP 97.8
[2018-04-09] MEDS ORDERED: LACTATED RINGERS 1,000 ML IV ONE ×2 (07:15)
[2018-04-09 07:16] LABS: Glucose,Whole Blood 173 mg/dL (75-99)
[2018-04-09] MEDS ORDERED: IV FLUID CONTINUATION 1,000 ML IV ONE (08:27)
[2018-04-09 08:45] LABS: Glucose,Whole Blood 131 mg/dL (75-99)
--- NOTE | 2018-04-09 08:46 | FL ---
Fluoroscopy HISTORY: Pain 15 seconds fluoroscopy time supplied to the referring clinician. 6 intraoperative C-arm images docum ent the procedure. See dictated report from anesthesia.
[2018-04-09 08:47] VITALS: BP 138/84; PULSE 90
--- NOTE | 2018-04-09 09:28 | P.PCN ---
Date of Procedure: 04/09/18 Procedure(s) Performed: PREOPERATIVE DIAGNOSIS: 1-Lumbosacral spondylosis with facet arthropathy without myelopathy. 2-Bilateral sacroiliit. post operative Diagnosis: . 1-Lumbosacral spondylosis with facet arthropathy without myelopathy. 2-Bilateral sacroiliit. PROCEDURES: 1-right sacroiliac joint steroid injection under fluoroscopy guidance 2- Left multi-site radiofrequency thermocoagulation/ablation of the S1, S2, and S3 lateral branchs. The procedure was performed using fluoroscopic guidance during needle placement to assure proper position and maximize safety . ANESTHESIA: LOCAL ANESTHESIA = moderate sedation with intravenous versed 3 mg and Fentanyle 100 mcg EBL: NONE INDICATION/MEDICAL NECESSITY: History of low back pain secondary to bilateral sacroiliitis and lumbosacral arthropathy unresponsive to more conservative treatments. The patient reported more than 50% relief of pain symptoms following 2 previous diagnostic blocks of the left sacroiliac joint, we didn't do the radiofrequency ablation of the left sacroiliac joint and also patient scheduled to have the right-sided sacroiliac joint steroid injection under fluoroscopy guidance PROCEDURE DESCRIPTION: The patient was seen and identified in the preoperative area. Risks, benefits, complications, and alternatives were discussed with the patient. The patient agreed to proceed with the procedure and signed the consent. Vital signs were checked before and after the procedure and they remained stable. Patient ambulated to the procedure room and time out was completed. The patient was placed in the prone position on the procedure table and a pillow was placed under the abdomen to reduce lumbar lordosis. The lumbosacral area was prepped and draped in the usual sterile fashion. Critical pause was taken. S1, S3, and S3 Lateral Branch RF: The medial margins of the Left SI joint identified using AP fluoroscopy. Under fluoroscopic guidance, three 10-cm 20 -gauge radiofrequency cannula with a 10- mm active tip were inserted at 2-3 mm medial to the medial edge of the left sacroiliac joint, total of 6 needles placed from the inferior margin of the left sacroiliac joint going superiorly, then , the sensory testing for lateral branch was performed at 50 Hz and 0 to 1 volt at the three levels with production of concordant pain starting at 0.5 volt. Motor stimulation was done at 2.5 Hz. No radicular symptoms or paresthesias were produced during the testing. Subsequently, the S1 ,S2 ,S3 lateral branch was subjected to a radiofrequency ablation at a mode of 90 seconds at 80 degrees Celsius at the 3 levels after negative motor and sensory testing and after injecting 0.5 ml of preservative free Bupivacaine 0.5 %. The S1-S2 and S3 foramina was not visualized The right sacroiliac joint steroid injections under fluoroscopy guidance, Then under strict sterile technique, I did the right sacroiliac joint the which was identified under fluoroscopy guidance been local infiltration of the skin and subcu interstitial with lidocaine 1% then 22-gauge Quincke Needle advanced slowly under fluoroscopy and placed in the right sacroiliac joint needle placement confirmed with AP and oblique and lateral view and after appropriate needle placement confirmed and after negative aspiration, or heme , then Ropivacaine 0.5% 3 mL, and 40 mg of Kenalog mixed together and injected in the right sacroiliac joint after negative aspiration patient tolerated the procedure well without any complication. COMPLICATIONS: The pa a lot of gas in the.tient tolerated the procedure well without any acute complications. DISPOSTION/PLAN: The patient ambulated to the recovery area after the procedure in a stable condition for observation. Patient was reexamined prior to discharge. Patient was observed for 30 minutes in the recovery area and was discharged home, accompanied by an adult, after meeting discharged criteria. Discharge instructions were give to the patient by the staff. Patient was specifically instructed not to drive today and to rest for the rest of the day. The patient will schedule a follow up visit in the clinic in weeks or earlier if needed.
== END 2018-04-09 09:11 | disposition home or self-care (01) ==
LOC: ORPAIN 06:51
PROVIDERS: ATTEND Specialist
DX: M47.817 Spondylosis without myelopathy or radiculopathy, lumbosacral region (principal); I10 Essential (primary) hypertension; M46.1 Sacroiliitis, not elsewhere classified; G89.29 Other chronic pain; M51.36 Other intervertebral disc degeneration, lumbar region; Z79.891 Long term (current) use of opiate analgesic; Z79.1 Long term (current) use of non-steroidal anti-inflammatories (NSAID); Z79.899 Other long term (current) drug therapy
CPT/HCPCS: 64640 ×3; J2250; J1030; J3010; G0260; 27096; 64635; 64636; 99152; 99153

== ENCOUNTER → 2018-04-29 | Outpatient (CLI) | payer OTHER ==
[2018-04-29 13:03] VITALS: BP 148/83; PULSE 101; RESP 16
--- NOTE | 2018-04-29 13:18 | P.PN ---
Progress Note - Text Progress Note Date: 04/29/18 50-year-old male status post left radio frequency ablation of the sacral lateral medial branches. He had excellent relief with the procedure greater than 70%. He also had a right SI joint injection that provided him with significant relief. VAS today is a 5 out of 10 in severity mostly low back radiating into his left leg into the medial aspect of his tibia. He has not had epidural steroid injections in some time and an old MRI in 2013 showed significant degenerative disc disease at L4-L5 with thecal sac effacement that likely has progressed causing L4 nerve root impingement. Patient is well into continue with the SI rhizotomy on the right then address his radicular pain in his left leg. In addition to above, 13-point review of systems is also negative for chest pain , shortness of breath, changes in vision, changes in hearing, new onset weakness , abdominal pain, diarrhea, extreme fatigue, malaise, fever, skin changes, homicidal or suicidal ideation, or bowel or bladder incontinence. Vital Signs: Reviewed in EMR Gen: WDWN, AAOx3, NAD HEENT: NCAT, EOMI, hearing grossly normal Pulm: resp unlabored Neck: supple, trachea midline TTP lower thoracic spine paravertebral area ROM in flexion lumbar spine: reduced ROM in extension lumbar spine: reduced Lumbar paravertebral tenderness: + Facet loading: + bilateral SI joint tenderness: + R > L Omero's test: + R > L Straight leg raise: + Left lower extremity 30 degrees Lower extremity: decreased ROM dorsiflexion/plantarflexion strength, hip flexion/extension, and knee flexion/extension secondary to pain Neuro: CN II-XII grossly intact, muscle strength lower extremities PRESERVED Imaging: Reviewed in EMR Assessment: 1. lumbar spinal stenosis 2. lumbar radiculopathy 3. Lumbosacral spondylosis 4. Obesity Plan: 1. Explanation: Opioid and psychological risk scores were reviewed. Diagnoses , prognoses, and multiple treatment options including but not limited to physical therapy, interventional therapies, adjuvant medical therapies, narcotic medication therapies, and surgery were discussed with the patient and all questions were answered to the patient's satisfaction. 2. Opioid agreement: Not required 3. Counseling: The patient was counseled extensively on SMOKING CESSATION, BODY MASS INDEX, EXERCISE. Specifically, the patient was instructed regarding the importance of smoking cessation, obesity, and exercise in the context of both chronic pain and overall health. 4. Procedures: SI joint injection 5. Consultations: None 6. Investigations: None 7. Medications: None 8. Disposition: Right sacroiliac joint injection, then a right S1 to S3 lateral branch rhizotomy if patient gets significant benefit. PQRS measures: 1-Patient's medications are documented in the chart. 2-Tobacco use is positive, counseling given 3-Patient has not had a pneumococcal vaccine. 4-Advanced care planning discussed, patient unable to give. 5-Opioid contract signed with the patient. 6-Pain positive, follow-up visit or procedure scheduled 7-Patient's blood pressure measured and documented, and WNL. 8-Patient's weight was measured, and body mass index ABOVE the normal limits, and counseling was done. Patient instructed to follow up with PCP. 9-Patient WAS NOT identified as an unhealthy alcohol user.
== END ==
LOC: PNWHC3 12:51
PROVIDERS: ATTEND Anesthesiology
DX: M48.061 Spinal stenosis, lumbar region without neurogenic claudication (principal); M47.27 Other spondylosis with radiculopathy, lumbosacral region; E66.9 Obesity, unspecified; Z72.0 Tobacco use
CPT/HCPCS: 99211

== ENCOUNTER → 2018-05-15 | Outpatient (CLI) | payer OTHER ==
--- NOTE | 2018-05-15 10:56 | CT ---
EXAMINATION TYPE: CT brain wo con DATE OF EXAM: 05/15/2018 COMPARISON: MRI brain 01/20/2011 INDICATION: Head pain, dizziness, pressure, fall hit back of head no loss of consciousness. DLP: 1114 mGycm, Automated exposure control for dose reduction was used. CONTRAST: None CT of the brain is performed utilizing 3 mm thick sections through the posterior fossa and 3 mm thick sections through the remaining calvarium. Study is performed within 24 hours of arrival to the [facility]. No abnormal hyperdensity is present to suggest an acute intracranial hemorrhage. No mass lesion is evident. No acute infarcts are evident. White matter changes from the MRI are not evident on the CT brain Ventricles and sulci are appropriate for the patient age. Paranasal sinuses and mastoid air cells within the [id number] are clear. IMPRESSIONS: 1. No acute intracranial process.
== END | disposition home or self-care (01) ==
LOC: RADCTMAIN 10:36
PROVIDERS: ATTEND Family Medicine
DX: Z09 Encounter for follow-up examination after completed treatment for conditions other than malignant neoplasm (principal); Z87.828 Personal history of other (healed) physical injury and trauma
CPT/HCPCS: 70450

== ENCOUNTER 2018-07-03 07:01 | Day surgery (SDC) | payer OTHER ==
[2018-06-27 11:09] VITALS: BMI 35.9
[2018-07-03] MEDS ORDERED: LIDOCAINE 1% 20 ML VIAL (10MG/ML) FOR IV START INTRADERMA ONE (07:41)
[2018-07-03] MEDS ORDERED: LACTATED RINGERS 1,000 ML IV ONE (07:41)
[2018-07-03 07:43] VITALS: RESP 16; TEMP 98.5
[2018-07-03 07:48] LABS: Glucose,Whole Blood 164 mg/dL (75-99)
--- NOTE | 2018-07-03 07:48 | P.PCN ---
Date of Procedure: 07/03/18 Description of Procedure: Procedure: RIGHT Sacroiliac joint injection # 2 Preoperative diagnosis: Sacroiliitis Postoperative diagnosis: Sacroiliitis Complications: none Anesthesia: conscious sedation and local with 1% lidocaine Description of the procedure: procedure risk and benefits discussed with the patient, including but not limited, risk of infection and bleeding, and allergic reaction to the medication and incomplete pain relief. Patient agreed and signed consent. Patient was taken to the room and placed in a prone position. Chlorhexidine was used to cleanse the skin. Under sterile conditions patient skin was anesthetized 1% lidocaine. Subcutaneous tissues were also anesthetized with a total 5 mL of 1% lidocaine. After that 22-gauge spinal needle was advanced through the anesthetized location. Needle was advanced into the inferior portion of the sacroiliac shobha int. IV contrast was used to confirm spread within the joint. After adequate spread was achieved, 2.5 ML's of 0.5% ropivacaine with 40 mg of triamcinolone was injected into the joint. Patient tolerated the procedure well. Sent to the recovery room in stable condition. Patient will follow up in the clinic in 4-8 weeks' time
[2018-07-03] MEDS ORDERED: IV FLUID CONTINUATION 1,000 ML IV ONE ×2 (08:05)
[2018-07-03 08:15] LABS: Glucose,Whole Blood 153 mg/dL (75-99)
[2018-07-03 08:23] VITALS: BP 114/63; PULSE 100
--- NOTE | 2018-07-03 09:04 | FL ---
EXAMINATION TYPE: FL guided pain mgmt statistic DATE OF EXAM: 07/03/2018 HISTORY: Flouroscopy time 8 seconds of fluoroscopy provided. IMPRESSION: 1. Fluoroscopy time.
== END 2018-07-03 08:35 | disposition home or self-care (01) ==
LOC: ORPAIN 07:01
PROVIDERS: ATTEND Hospitalist
DX: M46.1 Sacroiliitis, not elsewhere classified (principal); Z88.5 Allergy status to narcotic agent; Z88.8 Allergy status to other drugs, medicaments and biological substances; E11.9 Type 2 diabetes mellitus without complications
CPT/HCPCS: J2250; J1030; G0260; 27096

== ENCOUNTER 2018-07-17 08:28 | Day surgery (SDC) | payer OTHER ==
[2018-07-16 09:22] VITALS: BMI 35.2
[~2018-07-17 08:28] MED LIST changes: +LACTATED RINGERS 1,000 ML IV SCH; -SODIUM CHLORIDE 0.9% 500 ML 500 ML IV SCH
[2018-07-17] MEDS ORDERED: LIDOCAINE 1% 20 ML VIAL (10MG/ML) FOR IV START INTRADERMA ONE (08:52)
[2018-07-17 09:04] LABS: Glucose,Whole Blood 208 mg/dL (75-99)
[2018-07-17 09:11] VITALS: RESP 18; TEMP 97.8
--- NOTE | 2018-07-17 10:05 | P.PCN ---
Date of Procedure: 07/17/18 Procedure(s) Performed: PREOPERATIVE DIAGNOSIS: 1-Lumbosacral spondylosis with facet arthropathy without myelopathy. 2-Bilateral sacroiliit. post operative Diagnosis: . 1-Lumbosacral spondylosis with facet arthropathy without myelopathy. 2-Bilateral sacroiliit. PROCEDURES: 1-radiofrequency thermocoagulation right L5-S1 dorsal ramus under fluoroscopy guidance 2- multi-site radiofrequency thermocoagulation/ablation of the right S1, S2, and S3 lateral branchs. The procedure was performed using fluoroscopic guidance during needle placement to assure proper position and maximize safety ANESTHESIA: LOCAL ANESTHESIA = moderate sedation with intravenous versed 3 mg and Fentanyle 100 mcg EBL: NONE INDICATION/MEDICAL NECESSITY: History of low back pain secondary to bilateral sacroiliitis and lumbosacral arthropathy unresponsive to more conservative treatments. The patient reported more than 50% relief of pain symptoms following 2 previous diagnostic blocks of the sacroiliac joint PROCEDURE DESCRIPTION: The patient was seen and identified in the preoperative area. Risks, benefits, complications, and alternatives were discussed with the patient. The patient agreed to proceed with the procedure and signed the consent. Vital signs were checked before and after the procedure and they remained stable. Patient ambulated to the procedure room and time out was completed. The patient was placed in the prone position on the procedure table and a pillow was placed under the abdomen to reduce lumbar lordosis. The lumbosacral area was prepped and draped in the usual sterile fashion. Critical pause was taken. L5 Dorsal Ramus RF: Using right oblique fluoroscopy, the junction of the transverse process and the superior articular process of the right S1 vertebra, which correspond to the fluoroscopic image of the "eye of the Shabbir dog" was identified. Subsequently, a 10-cm 20 -gauge radiofrequency cannula with a 10-mm active tip was advanced under fluoroscopic guidance until contact was made with periosteum. At this level, the Sensory testing of the L5 dorsal ramus was performed at 50 Hz and 0 to 1 volt with production of concordant pain starting at 0.5 volt. Motor stimulation was done at 2.5 Hz with stimulation of mulitifidus muscle contration . No radicular symptoms or paresthesias were produced during the testing. Subsequently, the L5 dorsal ramus was subjected to a radiofrequency ablation at 80 degree celsius for 90 seconds . after 0.5% Bupivacaine 1 ml injected at each level after negative aspirations . S1, S3, and S3 Lateral Branch RF: The medial margins of the Right SI joint identified using AP fluoroscopy. Under fluoroscopic guidance, three 10-cm 20 -gauge radiofrequency cannula with a 10-mm active tip were inserted at 2-3 mm medial to the medial edge of the right sacroiliac joint, total of 6 needles placed from the inferior margin of the right sacroiliac joint going superiorly, then , the sensory testing for lateral branch was performed at 50 Hz and 0 to 1 volt at the three levels with production of concordant pain starting at 0.5 volt. Motor stimulation was done at 2.5 Hz. No radicular symptoms or paresthesias were produced during the testing. Subsequently, the S1 ,S2 ,S3 lateral branch was subjected to a radiofrequency ablation at a mode of 90 seconds at 80 degrees Celsius at the 3 levels after negative motor and sensory testing and after injecting 0.5 ml of preservative free Bupivacaine 0.5 %. The S1-S2 and S3 foramina was not visualized DISPOSTION/PLAN: The patient ambulated to the recovery area after the procedure in a stable condition for observation. Patient was reexamined prior to discharge. Patient was observed for 30 minutes in the recovery area and was discharged home, accompanied by an adult, after meeting discharged criteria. Discharge instructions were give to the patient by the staff. Patient was specifically instructed not to drive today and to rest for the rest of the day. The patient will schedule a follow up visit in the clinic in few weeks or earlier if needed
[2018-07-17] MEDS ORDERED: IV FLUID CONTINUATION 1,000 ML IV ONE (10:09)
[2018-07-17 10:18] LABS: Glucose,Whole Blood 163 mg/dL (75-99)
[2018-07-17 10:29] VITALS: BP 136/81; PULSE 93
--- NOTE | 2018-07-17 11:02 | FL ---
EXAMINATION TYPE: FL guided pain mgmt statistic DATE OF EXAM: 07/17/2018 HISTORY: Flouroscopy time 53 seconds of fluoroscopy provided. IMPRESSION: 1. Fluoroscopy time.
== END 2018-07-17 10:54 | disposition home or self-care (01) ==
LOC: ORPAIN 08:28
PROVIDERS: ATTEND Specialist
DX: M47.817 Spondylosis without myelopathy or radiculopathy, lumbosacral region (principal); M46.1 Sacroiliitis, not elsewhere classified; Z88.5 Allergy status to narcotic agent; Z88.8 Allergy status to other drugs, medicaments and biological substances; Z91.048 Other nonmedicinal substance allergy status
CPT/HCPCS: 64635; 64640 ×3; J2250; J1030; J3010; 64636; 99152; 99153

== ENCOUNTER → 2019-05-22 | Outpatient (CLI) | payer OTHER ==
--- NOTE | 2019-05-22 21:28 | MR ---
EXAMINATION TYPE: MR knee RT wo con DATE OF EXAM: 05/22/2019 COMPARISON: None HISTORY: Rt knee pain TECHNIQUE: Multiplanar, multisequence images of the knee is performed without IV contrast. FINDINGS: MEDIAL MENISCUS: Anterior and posterior horns are intact without tear. LATERAL MENISCUS: Anterior and posterior horns are intact without tear. CRUCIATE LIGAMENTS: The anterior and posterior cruciate ligaments are intact and unremarkable. COLLATERAL LIGAMENTS: The medial collateral ligament and lateral collateral ligament complex are inta ct and unremarkable. EXTENSOR MECHANISM: Visualized quadriceps and patellar tendons are intact. EFFUSION: There is a small joint effusion in the suprapatellar space. POPLITEAL CYST: There is a large popliteal cyst measuring 9.9 x 3.0 cm. TRICOMPARTMENT SPACES: Medial and lateral compartment joint spaces appear relatively preserved. There is loss of the patellofemoral joint space. CARTILAGE: There is mild diffuse thinning of the articular cartilage within the medial lateral compar tment joint spaces. There is loss of the articular cartilage the patellofemoral joint space. Some mil d osseous increased signal is adjacent within the lateral distal anterior femoral condyle. BONE MARROW SIGNAL: No focal abnormal marrow signal is appreciated elsewhere. OTHER: No additional significant abnormality is appreciated. IMPRESSION: 1. Large popliteal cyst. 2. Small joint effusion. 3. Advanced osteoarthritic degenerative change within the patellofemoral joint space. 4. Mild thinning of the articular cartilage without significant joint space loss of the medial latera l compartment joint spaces.
== END | disposition home or self-care (01) ==
LOC: RADMRIMAIN 07:53
PROVIDERS: ATTEND Orthopaedic Surgery
DX: M71.21 Synovial cyst of popliteal space [Baker], right knee (principal); M17.11 Unilateral primary osteoarthritis, right knee; M94.8X8 Other specified disorders of cartilage, other site

== ENCOUNTER 2019-09-04 13:51 | Day surgery (SDC) | payer OTHER ==
[2019-09-02 15:10] VITALS: BMI 36.0
--- NOTE | 2019-09-03 17:40 | HP ---
HISTORY AND PHYSICAL DATE OF SURGERY: 09/04/2019 Joseph Cavazos is a 59-year-old patient seen with progressive right knee pain. We discussed options for treatment. He elected to proceed with arthroscopy. Consent regarding the procedure was obtained. PAST MEDICAL HISTORY: Hypertension, hyperlipidemia, [id number] diabetes, depression. PAST SURGICAL HISTORY: Herniorrhaphy, knee arthroscopy, shoulder arthroscopy, carpal tunnel release. DAILY MEDICATIONS: Ibuprofen, lisinopril, metformin, Bang[place], nystatin, Prilosec, triamcinolone, metoprolol, vitamins. ALLERGIES: ULTRAM, LYRICA, DARVOCET. SOCIAL HISTORY: He denies current tobacco use. PHYSICAL EVALUATION OF RIGHT KNEE: Range of motion is negative 4/5 to 115. Mild to moderate effusion. Tenderness along the medial joint line. Positive medial Feliz's. Ligaments stable. Hip rotation without pain. Distal neurovascular exam intact. RADIOGRAPHS: Right knee radiographs revealed moderate medial and severe patellofemoral compartment osteoarthritis. An MRI of the right knee revealed a large Lehman cyst as well as osteoarthritic changes. IMPRESSION: 1. Internal derangement of right knee with meniscal tear versus osteochondral tear. 2. Hypertension. 3. Hyperlipidemia. 4. Gdh-jasaiws-xdtntugel diabetes. PLAN: Arthroscopy, right knee, with partial meniscectomy, partial synovectomy, chondroplasty and debridement. MMODL / IJN: [id number] /
[~2019-09-04 13:51] MED LIST changes: +DEXAMETHASONE SOD PHOSPHATE 10 MG/ML 1 ML VIAL IV ONE; +LIDOCAINE 1% (10MG/ML) FOR IV START INTRADERMA PRN; +ONDANSETRON 4 MG/2 ML VIAL IVP ONE
[2019-09-04 14:18] LABS: Glucose,Whole Blood 174 mg/dL (75-99)
[2019-09-04] MEDS ORDERED: BUPIVACAINE (PF) 0.25% 30 ML VIAL SQ ONE ×3 (14:50→15:29)
[2019-09-04] MEDS ORDERED: fentaNYL (PF) 50 MCG/ML 2 ML AMP ONE (14:56)
[2019-09-04] MEDS ORDERED: LIDOCAINE 1% INJ 10MG/ML (20 ML MDV) ONE (14:56)
[2019-09-04] MEDS ORDERED: MIDAZOLAM 2 MG/2 ML VIAL ONE (14:56)
[2019-09-04] MEDS ORDERED: PROPOFOL 10 MG/ML 20 ML VIAL IV ONE (14:56)
[2019-09-04] MEDS ORDERED: SUCCINYLCHOLINE CHLORIDE 100 MG/5 ML SYR IV ONE (14:56)
[2019-09-04] MEDS ORDERED: KETAMINE 10 MG/ML 20 ML VIAL ONE (14:56)
[2019-09-04 15:48] VITALS: TEMP 97.1
--- NOTE | 2019-09-04 15:48 | P.OP ---
Date of Procedure: 09/04/19 Preoperative Diagnosis: Internal derangement right knee Postoperative Diagnosis: 1. Tear lateral meniscus right knee 2. 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 Reactive synovitis medial, lateral and suprapatellar compartments right knee Procedure(s) Performed: 1. Arthroscopic partial lateral meniscectomy right knee 2. Arthroscopic chondroplasty lateral femoral condyle right knee 3. Arthroscopic partial synovectomy medial, lateral and suprapatellar compartments right knee Anesthesia: SHRUTHIA, local Surgeon: Irvin Austin Estimated Blood Loss (ml): 10 Pathology: none sent Condition: stable Disposition: PACU Indications for Procedure: 59-year-old patient seen with progressive right knee pain. After treatment options were discussed, he elected to proceed with arthroscopy. Operative Findings: See description of procedure Description of Procedure: Patient was taken to the operative suite. Patient underwent a general anesthetic by the department of anesthesia. Patient was given preoperative antibiotics. The right lower extremity was placed in a well-padded arthroscopic leg serrano. The right leg was prepped and draped in the normal sterile orthopedic fashion. A lateral parapatellar and suprapatellar incision was made. Trochars were inserted. Arthroscopy was initiated. Suprapatellar pouch revealed diffuse thick reactive synovitis. The patellofemoral joint appeared to articulate congruently. There was grade 4 chondromalacia of the patella and femoral sulcus with large areas of exposed bone. The scope was guided into the medial gutter. Loose bodies or plica were identified. The scope was then guided into the medial compartment. A medial parapatellar incision was made. Trocar inserted followed by probe. Medial meniscus had some mild fraying along the posterior horn area. There were grade 1/2 chondromalacia changes of the medial femoral condyle with no osteochondral tears present. There was thick reactive synovitis anteriorly. A motorize shaver was introduced I debrided that area of fraying posteriorly. I performed a partial synovectomy decompressing the reactive synovitis. There was good decompression of the synovitis. Scope and probe were then guided into the intercondylar notch. Cruciates were identified, probed and found to be stable. The scope and probe were then guided into lateral compartment.. There was a radial tear involving the midbody lateral meniscus. There were grade 2 chondral moist changes lateral femoral condyle with osteochondral flap tears present. There was thick reactive some- itis anteriorly. I performed a partial lateral meniscectomy. I performed a chondroplasty of the lateral femoral condyle. I performed a partial synovectomy decompressing reactive synovitis. The residual meniscus was probed and found to be stable. There was good decompression was synovitis. The residual osteochondral surface was stable. The scope was in guided back into the s uprapatellar compartment. I introduced a motorized shaver into the suprapatellar compartment. I debrided some piecemeal fragments of meniscus I encountered. I performed a partial synovectomy decompressing reactive synovitis. The shaver was removed. I took one more look on the entire knee, no residual debris. Instruments were now removed from the joint. The joint was infiltrated with .25% Marcaine. Steri-Strips were applied to the portal sites. Sterile dressings were applied. The patient was placed into a CHIRAG hose. No tourniquet was utilized. The patient was awakened, transferred to a bed and taken to recovery stable satisfactory condition.
[2019-09-04] MEDS ORDERED: KETOROLAC 30 MG/ML 1 ML VIAL IVP ONE (15:55)
[2019-09-04] MEDS: HYDROmorphone 0.5 MG/0.5 ML SYRINGE IVP PRN ×4 (15:55→16:15)
[2019-09-04 16:02] VITALS: RESP 16
[2019-09-04] MEDS ORDERED: diphenhydrAMINE 50 MG/ML 1 ML VIAL IVP ONE (16:05)
[2019-09-04] MEDS ORDERED: MEPERIDINE 50 MG/ML SYRINGE IVP ONE (16:22)
[2019-09-04 17:01] VITALS: BP 132/83; PULSE 98
== END 2019-09-04 17:29 | disposition home or self-care (01) ==
LOC: OR 13:51
PROVIDERS: ATTEND Orthopaedic Surgery
DX: S83.281A Other tear of lateral meniscus, current injury, right knee, initial encounter (principal); X58.XXXA Exposure to other specified factors, initial encounter; M22.41 Chondromalacia patellae, right knee; M65.861 Other synovitis and tenosynovitis, right lower leg; E78.5 Hyperlipidemia, unspecified; M06.9 Rheumatoid arthritis, unspecified; M79.7 Fibromyalgia; E53.8 Deficiency of other specified B group vitamins; E55.9 Vitamin D deficiency, unspecified; G47.00 Insomnia, unspecified; E11.40 Type 2 diabetes mellitus with diabetic neuropathy, unspecified; F32.9 Major depressive disorder, single episode, unspecified; K57.30 Diverticulosis of large intestine without perforation or abscess without bleeding; E66.01 Morbid (severe) obesity due to excess calories; Z68.36 Body mass index [BMI] 36.0-36.9, adult; N39.498 Other specified urinary incontinence; F41.9 Anxiety disorder, unspecified; I10 Essential (primary) hypertension; M51.37 Other intervertebral disc degeneration, lumbosacral region; M50.30 Other cervical disc degeneration, unspecified cervical region; I27.20 Pulmonary hypertension, unspecified; I83.90 Asymptomatic varicose veins of unspecified lower extremity; G47.33 Obstructive sleep apnea (adult) (pediatric); K44.9 Diaphragmatic hernia without obstruction or gangrene; Z83.3 Family history of diabetes mellitus; Z82.49 Family history of ischemic heart disease and other diseases of the circulatory system; Z82.3 Family history of stroke; Z83.42 Family history of familial hypercholesterolemia; Z82.69 Family history of other diseases of the musculoskeletal system and connective tissue; Z98.890 Other specified postprocedural states; Z88.5 Allergy status to narcotic agent; Z79.4 Long term (current) use of insulin; Z79.891 Long term (current) use of opiate analgesic; Z79.899 Other long term (current) drug therapy; Z88.8 Allergy status to other drugs, medicaments and biological substances
CPT/HCPCS: 29881; 29876; J2250; J1200; J1100; J2175; J0690; J2405; J2001; J3010; J1885; J0330; J2704; J1170

== ENCOUNTER → 2019-11-19 | Outpatient (CLI) | payer OTHER ==
[2019-11-19 15:36] LABS: Basophils # (A) 0.1 k/uL (0-0.2); Basophils % (A) 1 %; Eosinophils # (A) 0.2 k/uL (0-0.7); Eosinophils % (A) 1 %; HCT 40.8 % (39.0-53.0); HGB 13.2 gm/dL (13.0-17.5); Lymphocytes # (A) 2.3 k/uL (1.0-4.8); Lymphocytes % (A) 20 %; MCH 29.1 pg (25.0-35.0); MCHC 32.5 g/dL (31.0-37.0); MCV 89.6 fL (80.0-100.0); Mean Platelet Volume 7.7; Monocytes # (A) 0.6 k/uL (0-1.0); Monocytes % (A) 5 %; Neutrophils # (A) 8.5 k/uL (1.3-7.7); Neutrophils % (A) 72 %; Platelet Count 273 k/uL (150-450); RBC 4.55 m/uL (4.30-5.90); RDW 13.5 % (11.5-15.5); WBC 11.8 k/uL (3.8-10.6)
== END | disposition home or self-care (01) ==
LOC: LABPAT 14:30
PROVIDERS: ATTEND Orthopaedic Surgery
DX: M23.92 Unspecified internal derangement of left knee (principal)
CPT/HCPCS: 80051; 85025

== ENCOUNTER → 2019-12-04 | Day surgery (SDC) | payer OTHER ==
[2019-12-01 14:50] VITALS: BMI 36.6
--- NOTE | 2019-12-03 21:02 | HP ---
HISTORY AND PHYSICAL DATE OF SURGERY: 12/04/2019 Joseph Cavazos is a 59-year-old patient who was seen with progressive left knee pain. We discussed options and he elected to proceed with arthroscopy. Consent regarding the procedure was obtained. PAST MEDICAL HISTORY: Hypertension, fgu-[id number]-agalaehlj diabetes, depression. PAST SURGICAL HISTORY: Right knee arthroscopy, herniorrhaphy, shoulder arthroscopy, carpal tunnel release, herniorrhaphy. DAILY MEDICATIONS: Ibuprofen, lisinopril/hydrochlorothiazide, metformin, [place], Prilosec, metoprolol, vitamins. ALLERGIES: ULTRAM, LYRICA, DARVOCET. SOCIAL HISTORY: He denies current tobacco use. PHYSICAL EVALUATION OF THE LEFT KNEE: His range of motion is -3/4 to 100 degrees. There is a mild effusion present. There is tenderness along the medial joint line. There is a positive medial Feliz's. There is crepitus along the medial and patellofemoral compartments with range of motion. There is pain with patellofemoral compression. His ligaments are stable. Hip rotation is without pain. His distal neurovascular exam is intact. RADIOGRAPHS: Left knee radiographs revealed osteoarthritic changes. IMPRESSION: 1. Internal derangement of left knee with meniscal tear. 2. Left knee osteoarthritis. 3. Hypertension. 4. Xyu-sosyxjg-hffauctgk diabetes. PLAN: Left knee arthroscopy with partial meniscectomy, partial synovectomy and debridement. MMODL / IJN: [id number] /
[~2019-12-04] MED LIST changes: +HYDROmorphone (PF) 1 MG/ML ONE; +KETOROLAC 15 MG/ML 1 ML VIAL IVP ONE; +LIDOCAINE 1% (10MG/ML) FOR IV START INTRADERMA ONE; -LIDOCAINE 1% (10MG/ML) FOR IV START INTRADERMA PRN; +LIDOCAINE 1% INJ 10MG/ML (20 ML MDV) ONE; +MIDAZOLAM 2 MG/2 ML VIAL ONE; +PROPOFOL 10 MG/ML 20 ML VIAL IV ONE; +SODIUM CHLORIDE 0.9% 50 ML with ceFAZolin 2,000 MG IV ONE; +SUCCINYLCHOLINE CHLORIDE 100 MG/5 ML SYR IV ONE; +fentaNYL (PF) 50 MCG/ML 2 ML AMP ONE
[2019-12-04 14:00] LABS: Glucose,Whole Blood 97 mg/dL (75-99)
[2019-12-04] MEDS: HYDROmorphone 0.5 MG/0.5 ML SYRINGE IVP PRN ×4 (15:10→15:30)
[2019-12-04 15:12] VITALS: RESP 16
--- NOTE | 2019-12-04 15:13 | P.OP ---
Date of Procedure: 12/04/19 Preoperative Diagnosis: Internal derangement left knee Postoperative Diagnosis: 1. Tear lateral meniscus left knee 2. Grade 2/3 chondromalacia medial femoral condyle left knee 3. Reactive synovitis medial, lateral and suprapatellar compartments left knee Procedure(s) Performed: 1. Arthroscopic partial lateral meniscectomy left knee 2. Arthroscopic chondroplasty medial femoral condyle left knee 3. Arthroscopic partial synovectomy medial, lateral and suprapatellar compartments left knee Anesthesia: SHRUTHIA, local Surgeon: Irvin Austin Estimated Blood Loss (ml): 8 Pathology: none sent Condition: stable Disposition: PACU Indications for Procedure: 59-year-old patient seen with progressive left knee pain. After treatment options were discussed, he elected to proceed with arthroscopy. Operative Findings: See description of procedure Description of Procedure: Patient was taken to the operative suite. Patient underwent a general anesthetic by the department of anesthesia. Patient was given preoperative antibiotics. The left lower extremity was placed in a well-padded arthroscopic leg serrano. The left leg was prepped and draped in the normal sterile orthopedic fashion. A lateral parapatellar and suprapatellar incision was made. Trochars were inserted. Arthroscopy was initiated. Suprapatellar pouch revealed diffuse thick reactive synovitis. The patellofemoral joint appeared to articulate congruently. There was grade 4 chondromalacia of the femoral sulcus with a large area of exposed bone. There was grade 3 chondromalacia of the patella. The scope was guided into the medial gutter. No loose bodies or plica were identified. The scope was then guided into the medial compartment. A medial parapatellar incision was made. Trocar inserted followed by probe. The medial meniscus appeared intact with some mild superficial fraying along the midbody area. There was evidence for previous partial meniscectomy. There were grade 2/3 chondromalacia changes of the medial femoral condyle with some fairly large osteochondral flap tears present. There was thick reactive synovitis anteriorly. I introduced a motorized shaver and performed a chondroplasty of the medial femoral condyle getting down to stable osteochondral tissue. I debrided that mild superficial fraying with motorize shaver of the meniscus. I performed a partial synovectomy decompressing the reactive synovitis anteriorly. The shaver was removed. The probe was reintroduced. The residual osteochondral surface was stable. There was good decompression of the synovitis. Scope and probe were then guided into the intercondylar notch. Cruciates were identified, probed and found to be stable. The scope and probe were then guided into lateral compartment. There was radial tears involving the midbody lateral meniscus. There were grade 2 chondromalacia changes lateral compartment with no osteochondral tears present. There was thick reactive synovitis anteriorly. I performed a partial lateral meniscectomy getting down to stable tissue. I performed a partial synovectomy decompressing reactive synovitis. The residual meniscus was found to be stable. There was good decompression of the synovitis. The scope was in guided back into the suprapatellar compartment. I introduced a motorized shaver into the patellar compartment. I debrided some piecemeal fragments of meniscus I encountered. I performed a partial synovectomy. Shaver was removed. I took one more look on the entire knee, no residual debris. Instruments were now removed from the joint. The joint was infiltrated with .25% Marcaine. Steri-Strips were applied to the portal sites. Sterile dressings were applied. The patient was placed into a CHIRAG hose. No tourniquet was utilized. The patient was awakened, transferred to a bed and taken to recovery stable satisfactory condition.
[2019-12-04 15:25] VITALS: TEMP 97.4
[2019-12-04 16:14] LABS: Glucose,Whole Blood 50 mg/dL (75-99)
[2019-12-04 16:33] LABS: Glucose,Whole Blood 59 mg/dL (75-99)
[2019-12-04 16:41] VITALS: BP 136/82; PULSE 98
[2019-12-04 17:05] LABS: Glucose,Whole Blood 85 mg/dL (75-99)
== END | disposition home or self-care (01) ==
LOC: OR 13:28
PROVIDERS: ATTEND Orthopaedic Surgery
DX: S83.282A Other tear of lateral meniscus, current injury, left knee, initial encounter (principal); X58.XXXA Exposure to other specified factors, initial encounter; M22.42 Chondromalacia patellae, left knee; M65.862 Other synovitis and tenosynovitis, left lower leg; M23.332 Other meniscus derangements, other medial meniscus, left knee; M17.12 Unilateral primary osteoarthritis, left knee; I10 Essential (primary) hypertension; E11.9 Type 2 diabetes mellitus without complications; K21.9 Gastro-esophageal reflux disease without esophagitis; F32.9 Major depressive disorder, single episode, unspecified; Z79.1 Long term (current) use of non-steroidal anti-inflammatories (NSAID); Z79.891 Long term (current) use of opiate analgesic; Z79.899 Other long term (current) drug therapy; Z79.4 Long term (current) use of insulin; Z88.5 Allergy status to narcotic agent; Z88.8 Allergy status to other drugs, medicaments and biological substances; Z98.890 Other specified postprocedural states; Z86.69 Personal history of other diseases of the nervous system and sense organs
CPT/HCPCS: 29881; 29876; J2250; J1100; J2405; J0690; J2001; J3010; J1170 ×2; J1885; J0330; J2704

== ENCOUNTER 2019-12-09 02:41 | Observation (INO) | payer OTHER ==
[2019-12-09] MEDS ORDERED: ACETAMINOPHEN TAB 500 MG TAB PO STA (02:51)
[2019-12-09] MEDS ORDERED: VANCOMYCIN IV PER PHARMACY 1 EACH MISC MISCELLANE PRN (02:53)
[2019-12-09] MEDS ORDERED: CEFEPIME 2 GM in SODIUM CHLORIDE 0.9% 100 ML IVPB STA (02:53)
[2019-12-09] MEDS ORDERED: VANCOMYCIN 1,500 MG in SODIUM CHLORIDE 0.9% 250 ML IVPB STA (02:55)
--- NOTE | 2019-12-09 03:10 | ED ---
Extremity Problem HPI - General Chief complaint: Extremity Problem,Nontraumatic Stated complaint: Lt leg post-op pain Time Seen by Provider: 12/09/19 02:51 Source: patient Mode of arrival: ambulatory Limitations: no limitations - History of Present Illness Initial comments: Joseph is an obese 59-year-old gentleman who was a scalp and knee surgery with Dr. Austin on , December 03, patient reports that he did well in the immediate postoperative period however he's had progressively worsening pain in his knee. He reports that today the pain was becoming unbearable throughout the day, he also noted that he developed a fever and a progressively worsened throughout the day despite taking his prescribed Parker which has Tylenol in it. This evening the pain was completely unbearable had a high fever felt like his heart was racing which prompted the ER for evaluation. She denies any cough or shortness of breath, he denies any dysuria or urinary frequency. Denies any rashes or swelling in the upper extremities. He hasn't noted any irritation where he had previous IVs. - Related Data Home Medications Medication Instructions Recorded Confirmed Lisinopril-Hctz 20-25 mg 1 tab PO QAM 09/22/13 12/08/19 [Zestoretic 20-25] metFORMIN HCL [Glucophage] 2,000 mg PO HS 09/22/13 12/08/19 Cyclobenzaprine [Flexeril] 10 mg PO TID PRN 10/15/13 12/08/19 Ergocalciferol [Vitamin D2] 50,000 unit PO Q30D 12/12/16 12/08/19 Nystatin 100,000Unit/gm Cream 1 applic TOPICAL DAILY PRN 12/12/16 12/08/19 [Mycostatin Cream] Omeprazole 20 mg PO QAM 12/12/16 12/08/19 Triamcinolone 0.1% Cream [Kenalog 1 applic TOPICAL DAILY PRN 12/12/16 12/08/19 0.1% Cream] Insulin Glargine,Hum.rec.anlog 90 unit SQ HS 11/15/17 12/08/19 [Basaglar Kwikpen U-100] HYDROcodone/APAP 10-325MG [Parker 1 tab PO DIRECTED PRN 04/29/18 12/08/19 10-325] Cholecalciferol [Vitamin D3 (25 2,000 unit PO DAILY 09/02/19 12/08/19 Mcg = 1000 Iu)] Morphine Sulfate [Ms Contin] 15 mg PO Q12HR 09/02/19 12/08/19 Cyanocobalamin (Vitamin B-12) 1,000 mcg PO DAILY 12/08/19 12/08/19 [Vitamin B-12] Dicyclomine [Bentyl] 20 mg PO QID PRN 12/08/19 12/08/19 Insulin Lispro [Insulin Lispro 10 units SQ AC-TID 12/08/19 12/08/19 Kwikpen U-100] Insulin Lispro [Insulin Lispro 12 units SQ HS 12/08/19 12/08/19 Kwikpen U-100] Lisinopril-Hctz 20-25 mg 0.5 tab PO HS 12/08/19 12/08/19 [Zestoretic 20-25] Metoprolol Succinate [Toprol XL] 25 mg PO HS 12/08/19 12/08/19 hydrOXYzine pamoate [hydrOXYzine 25 mg PO HS 12/08/19 12/08/19 PAMOATE] Allergies Allergy/AdvReac Type Severity Reaction Status Date / Time tramadol HCl [From Ultram] Allergy Unknown Abdominal Verified 12/09/19 02:50 Pain, diarrhea, severe headache pregabalin [From Lyrica] AdvReac Unknown INCREASED Verified 12/09/19 02:50 DEPRESSION propoxyphene napsylate AdvReac Unknown LOSS OF Verified 12/09/19 02:50 [From Darvocet-N 100] COORDINATION ANTIDEPRESSANTS AdvReac STATES Uncoded 12/09/19 02:50 INCREASE DEPRESSION Review of Systems ROS Statement: Those systems with pertinent positive or pertinent negative responses have been documented in the HPI. ROS Other: All systems not noted in ROS Statement are negative. Past Medical History Past Medical History: Blood Disorder, Chest Pain / Angina, Diabetes Mellitus, Fibromyalgia, Hearing Disorder / Deafness, Hypertension, Musculoskeletal Disorder, Osteoarthritis (OA), Skin Disorder, Sleep Apnea/CPAP/BIPAP Additional Past Medical History / Comment(s): MIGRAINES, DIVERTICULOSIS, HIATAL HERNIA, umbilical hernia, ATHLETES FOOT, RINGING IN EARS, DDD, yeast rash in armpits and groins, occ. urinary incontinence, Monoclonal Gammapathy of Undetermined Significance(MGUS). Hx cellulitis. Has cpap machine. Recent increased lower back pain. History of Any Multi-Drug Resistant Organisms: None Reported Past Surgical History: Orthopedic Surgery Additional Past Surgical History / Comment(s): RIGHT ROTATOR CUFF, CARPAL TUNNEL, BILATERAL INGUINAL HERNIA REPAIRS, ARTHROSCOPY BILATERAL KNEES, RIGHT ELBOW CUBITAL ULNAR SURGERY, PREVIOUS PAIN CLINIC PROCEDURES. Past Anesthesia/Blood Transfusion Reactions: Previous Problems w/ Anesthesia, Family History of Problems w/ Anesthesia Additional Past Anesthesia/Blood Transfusion Reaction / Comment(s): STATES HE NEEDED MORE ANESTHESIA, " I have a high tolerance". Mother experienced memory issues after anesthesia "for a couple weeks". Past Psychological History: Anxiety, Depression Smoking Status: Never smoker Past Alcohol Use History: None Reported Past Drug Use History: None Reported - Past Family History Mother Family Medical History: Deep Vein Thrombosis (DVT) Additional Family Medical History / Comment(s): Precancerous cells - uterine. Sister(s) Family Medical History: Cancer Additional Family Medical History / Comment(s): Skin Cancer. General Exam - General Exam Comments Initial Comments: Physical Exam GENERAL: Appears uncomfortable Ill appearing HENT: Normocephalic, Atraumatic. EYES: PERRL, EOMI PULMONARY: Unlabored respirations. CARDIOVASCULAR: Tachycardia, regular ABDOMEN: Soft and nontender with normal bowel sounds. SKIN: Well healing surgical incision over left knee No signs of thrombophlebitis : Deferred NEUROLOGIC: Patient is alert and oriented x3. Moving all extremities spontaneously MUSCULOSKELETAL: Decreased ROM of left knee secondary to pain Effusion to left knee noted, bruising noted Left knee is warm to touch, no erythema PSYCHIATRIC: Normal psychiatric evaluation. Limitations: no limitations Course Vital Signs 12/09/19 12/09/19 12/09/19 02:47 04:43 05:34 Temperature 100.9 F H 99.9 F H Pulse Rate 113 H 99 Respiratory 20 18 Rate Blood Pressure 134/86 113/61 O2 Sat by Pulse 98 98 Oximetry Medical Decision Making - Medical Decision Making The patient was seen and evaluated upon arrival in the emergency department Patient is 4 days postop from left knee surgery, today he has worsening pain, fever, tachycardia Septic workup was initiated Broad spectrum antibiotics were initiated Secondary survey the patient reveals no other sources for infection, there is no thrombophlebitis, x-ray with no signs of pneumonia, no lower urinary tract symptoms Labs resulted with leukocytosis, no lactic acidosis The cultures were obtained prior to antibiotics Patient care was discussed with Dr. Rendon who agrees with plan for admission for possible postoperative joint infection - Lab Data Result diagrams: 12/09/19 03:05 12/09/19 03:05 Lab Results 12/09/19 12/09/19 12/09/19 Range/Units 03:05 03:05 03:05 WBC 13.2 H (3.8-10.6) k/uL RBC 4.21 L (4.30-5.90) m/uL Hgb 11.9 L (13.0-17.5) gm/dL Hct 36.8 L (39.0-53.0) % MCV 87.6 (80.0-100.0) fL MCH 28.2 (25.0-35.0) pg MCHC 32.2 (31.0-37.0) g/dL RDW 13.4 (11.5-15.5) % Plt Count 214 (150-450) k/uL Neutrophils % 78 % Lymphocytes % 14 % Monocytes % 5 % Eosinophils % 1 % Basophils % 1 % Neutrophils # 10.2 H (1.3-7.7) k/uL Lymphocytes # 1.9 (1.0-4.8) k/uL Monocytes # 0.7 (0-1.0) k/uL Eosinophils # 0.1 (0-0.7) k/uL Basophils # 0.1 (0-0.2) k/uL PT 9.8 (9.0-12.0) sec INR 0.9 (<1.2) APTT 25.8 (22.0-30.0) sec Sodium (137-145) mmol/L Potassium (3.5-5.1) mmol/L Chloride (98-107) mmol/L Carbon Dioxide (22-30) mmol/L Anion Gap mmol/L BUN (9-20) mg/dL Creatinine (0.66-1.25) mg/dL Est GFR (CKD-EPI)AfAm (>60 ml/min/1.73 sqM) Est GFR (CKD-EPI)NonAf (>60 ml/min/1.73 sqM) Glucose (74-99) mg/dL Plasma Lactic Acid Morteza (0.7-2.0) mmol/L Calcium (8.4-10.2) mg/dL Total Bilirubin (0.2-1.3) mg/dL AST (17-59) U/L ALT (4-49) U/L Alkaline Phosphatase (38-126) U/L C-Reactive Protein (<10.0) mg/L Total Protein (6.3-8.2) g/dL Albumin (3.5-5.0) g/dL Urine Color Light Yellow Urine Appearance Clear (Clear) Urine pH 7.0 (5.0-8.0) Ur Specific Harrison 1.010 (1.001-1.035) Urine Protein Negative (Negative) Urine Glucose (UA) Negative (Negative) Urine Ketones Negative (Negative) Urine Blood Negative (Negative) Urine Nitrite Negative (Negative) Urine Bilirubin Negative (Negative) Urine Urobilinogen <2.0 (<2.0) mg/dL Ur Leukocyte Esterase Negative (Negative) 12/09/19 12/09/19 Range/Units 03:05 03:05 WBC (3.8-10.6) k/uL RBC (4.30-5.90) m/uL Hgb (13.0-17.5) gm/dL Hct (39.0-53.0) % MCV (80.0-100.0) fL MCH (25.0-35.0) pg MCHC (31.0-37.0) g/dL RDW (11.5-15.5) % Plt Count (150-450) k/uL Neutrophils % % Lymphocytes % % Monocytes % % Eosinophils % % Basophils % % Neutrophils # (1.3-7.7) k/uL Lymphocytes # (1.0-4.8) k/uL Monocytes # (0-1.0) k/uL Eosinophils # (0-0.7) k/uL Basophils # (0-0.2) k/uL PT (9.0-12.0) sec INR (<1.2) APTT (22.0-30.0) sec Sodium 135 L (137-145) mmol/L Potassium 4.6 (3.5-5.1) mmol/L Chloride 99 (98-107) mmol/L Carbon Dioxide 25 (22-30) mmol/L Anion Gap 11 mmol/L BUN 23 H (9-20) mg/dL Creatinine 1.38 H (0.66-1.25) mg/dL Est GFR (CKD-EPI)AfAm 64 (>60 ml/min/1.73 sqM) Est GFR (CKD-EPI)NonAf 56 (>60 ml/min/1.73 sqM) Glucose 97 (74-99) mg/dL Plasma Lactic Acid Morteza 1.4 (0.7-2.0) mmol/L Calcium 9.7 (8.4-10.2) mg/dL Total Bilirubin 0.5 (0.2-1.3) mg/dL AST 20 (17-59) U/L ALT 17 (4-49) U/L Alkaline Phosphatase 61 (38-126) U/L C-Reactive Protein 31.8 H (<10.0) mg/L Total Protein 7.8 (6.3-8.2) g/dL Albumin 4.3 (3.5-5.0) g/dL Urine Color Urine Appearance (Clear) Urine pH (5.0-8.0) Ur Specific Harrison (1.001-1.035) Urine Protein (Negative) Urine Glucose (UA) (Negative) Urine Ketones (Negative) Urine Blood (Negative) Urine Nitrite (Negative) Urine Bilirubin (Negative) Urine Urobilinogen (<2.0) mg/dL Ur Leukocyte Esterase (Negative) Disposition Clinical Impression: Septic arthritis Disposition: ADMITTED IP TO THIS HOSP Condition: Stable Is patient prescribed a controlled substance at d/c from ED?: No
[2019-12-09] MEDS: SODIUM CHLORIDE 0.9% 1,000 ML IV SCH ×3 (03:23→20:12)
[2019-12-09] MEDS: SODIUM CHLORIDE 0.9% 500 ML 500 ML IV SCH ×2 (03:24→03:30)
[2019-12-09 03:31] LABS: Basophils # (A) 0.1 k/uL (0-0.2); Basophils % (A) 1 %; Eosinophils # (A) 0.1 k/uL (0-0.7); Eosinophils % (A) 1 %; HCT 36.8 % (39.0-53.0); HGB 11.9 gm/dL (13.0-17.5); Lymphocytes # (A) 1.9 k/uL (1.0-4.8); Lymphocytes % (A) 14 %; MCH 28.2 pg (25.0-35.0); MCHC 32.2 g/dL (31.0-37.0); MCV 87.6 fL (80.0-100.0); Mean Platelet Volume 7.7; Monocytes # (A) 0.7 k/uL (0-1.0); Monocytes % (A) 5 %; Neutrophils # (A) 10.2 k/uL (1.3-7.7); Neutrophils % (A) 78 %; Platelet Count 214 k/uL (150-450); RBC 4.21 m/uL (4.30-5.90); RDW 13.4 % (11.5-15.5); WBC 13.2 k/uL (3.8-10.6)
[2019-12-09] MEDS ORDERED: HYDROmorphone 1 MG/ML 1 ML SYRINGE IVP STA (03:34)
[2019-12-09 03:44] LABS: Albumin 4.3 g/dL (3.5-5.0); C Reactive Protein 31.8 mg/L (<10.0); Calcium 9.7 mg/dL (8.4-10.2); Potassium 4.6 mmol/L (3.5-5.1); Total Bilirubin 0.5 mg/dL (0.2-1.3); Total Protein 7.8 g/dL (6.3-8.2)
[2019-12-09 03:48] LABS: INR 0.9 (<1.2); Partial Thromboplastin Time 25.8 sec (22.0-30.0); Prothrombin Time 9.8 sec (9.0-12.0)
--- NOTE | 2019-12-09 04:19 | XR ---
EXAMINATION TYPE: XR chest 2V DATE OF EXAM: 12/09/2019 COMPARISON: 01/20/2014 HISTORY: Postop fever TECHNIQUE: FINDINGS: Heart is normal. Lungs are clear of consolidation. There is no heart failure. There are no hilar masses. Bony thorax is intact. The pulmonary vascularity is normal. IMPRESSION: No active cardiopulmonary disease. No adverse change. No evidence of bronchopneumonia.
--- NOTE | 2019-12-09 04:21 | XR ---
EXAMINATION TYPE: XR knee limited LT DATE OF EXAM: 12/09/2019 COMPARISON: NONE HISTORY: Postop TECHNIQUE: 2 views FINDINGS: There is some spurring on the patella. There is a mild knee joint effusion. There is soft t issue air on the medial aspect of the distal thigh. IMPRESSION: Soft tissue air. No fracture. Mild arthritic changes in the medial joint space. Knee join t effusion. No evidence of osteomyelitis.
[2019-12-09] MEDS ORDERED: IBUPROFEN 400 MG TAB PO PRN (04:41)
[2019-12-09] MEDS ORDERED: ACETAMINOPHEN TAB 325 MG TAB PO PRN (04:41)
[2019-12-09] MEDS ORDERED: NALOXONE 0.4 MG/ML 1 ML VIAL IV PRN (04:41)
[2019-12-09 04:42] LABS: Appearance,Urine Clear (Clear); Bilirubin,Urine Negative (Negative); Blood,Urine Negative (Negative); Color,Urine Light Yellow; Glucose,Urine (UA) Negative (Negative); Ketones,Urine Negative (Negative); Leukocyte Esterase,Urine Negative (Negative); Nitrite,Urine Negative (Negative); Protein,Urine Negative (Negative); Urobilinogen,Urine <2.0 mg/dL (<2.0)
[2019-12-09] MEDS: HYDROmorphone 0.5 MG/0.5 ML SYRINGE IVP PRN ×4 (07:19→20:13)
[2019-12-09 07:22] LABS: Glucose,Whole Blood 56 mg/dL (75-99)
[2019-12-09 07:43] LABS: Glucose,Whole Blood 73 mg/dL (75-99)
[2019-12-09] MEDS ORDERED: TRIAMCINOLONE 0.1% CREAM 80 GM TUBE TOPICAL PRN (10:06)
[2019-12-09] MEDS ORDERED: CYCLOBENZAPRINE 10 MG TAB PO PRN (10:06)
[2019-12-09] MEDS ORDERED: DICYCLOMINE 20 MG TAB PO PRN (10:06)
[2019-12-09] MEDS ORDERED: NYSTATIN 100,000UNIT/GM CREAM 30 GM TUBE TOPICAL PRN (10:06)
[2019-12-09] MEDS: CYANOCOBALAMIN 500 MCG TAB PO SCH (11:06)
[2019-12-09] MEDS: LISINOPRIL-HCTZ 20-25 MG 1 EACH TAB PO SCH ×2 (11:06→22:15)
[2019-12-09] MEDS: PANTOPRAZOLE 40 MG TABLET PO SCH (11:06)
--- NOTE | 2019-12-09 11:56 | P.HPOR ---
History of Present Illness H&P Date: 12/09/19 Chief Complaint: Right knee pain and swelling Patient is a 59-year-old male who recently underwent a right knee arthroscopy with Dr. Austin last . After being discharged home and was doing fairly well. Over the last few days he's noted increase in pain and swelling. There was questions of a fever that the patient was having. He was having a very difficult time weightbearing. He came to the emergency room early this morning and to be evaluated. Upon arrival, multiple imaging test were done. Images demonstrated an elevated white count and CRP level. The case was discussed with one of my attendings Dr. Molina said. He did see the patient early this morning, I was able to discuss the case with him. I then discussed the case in my other attending Dr. Austin. Patient is examined today at bedside again by myself, notable effusion present. As noted in pain with bending and extending. He has a difficult time placing all the weight through his knee. Currently he has no fever. He has no chills. He has no nausea or vomiting. He has no other orthopedic complaints at this time. Review of Systems Constitutional: Reports as per HPI Past Medical History Past Medical History: Blood Disorder, Chest Pain / Angina, Diabetes Mellitus, Fibromyalgia, Hearing Disorder / Deafness, Hypertension, Musculoskeletal Disorder, Osteoarthritis (OA), Skin Disorder, Sleep Apnea/CPAP/BIPAP Additional Past Medical History / Comment(s): MIGRAINES, DIVERTICULOSIS, HIATAL HERNIA, umbilical hernia, ATHLETES FOOT, RINGING IN EARS, DDD, yeast rash in armpits and groins, occ. urinary incontinence, Monoclonal Gammapathy of Undetermined Significance(MGUS). Hx cellulitis. Has cpap machine. Recent increased lower back pain. History of Any Multi-Drug Resistant Organisms: None Reported Past Surgical History: Orthopedic Surgery Additional Past Surgical History / Comment(s): RIGHT ROTATOR CUFF, CARPAL TUNNEL, BILATERAL INGUINAL HERNIA REPAIRS, ARTHROSCOPY BILATERAL KNEES, RIGHT EL BOW CUBITAL ULNAR SURGERY, PREVIOUS PAIN CLINIC PROCEDURES. Past Anesthesia/Blood Transfusion Reactions: Previous Problems w/ Anesthesia, Family History of Problems w/ Anesthesia Additional Past Anesthesia/Blood Transfusion Reaction / Comment(s): STATES HE NEEDED MORE ANESTHESIA, " I have a high tolerance". Mother experienced memory issues after anesthesia "for a couple weeks". Past Psychological History: Anxiety, Depression Smoking Status: Never smoker Past Alcohol Use History: None Reported Past Drug Use History: None Reported - Past Family History Mother Family Medical History: Deep Vein Thrombosis (DVT) Additional Family Medical History / Comment(s): Precancerous cells - uterine. Sister(s) Family Medical History: Cancer Additional Family Medical History / Comment(s): Skin Cancer. Medications and Allergies Home Medications Medication Instructions Recorded Confirmed Type Lisinopril-Hctz 20-25 mg 1 tab PO QAM 09/22/13 12/09/19 History [Zestoretic 20-25] metFORMIN HCL [Glucophage] 2,000 mg PO HS 09/22/13 12/09/19 History Cyclobenzaprine [Flexeril] 10 mg PO TID PRN 10/15/13 12/09/19 History Ergocalciferol [Vitamin D2] 50,000 unit PO Q30D 12/12/16 12/09/19 History Nystatin 100,000Unit/gm Cream 1 applic TOPICAL DAILY PRN 12/12/16 12/09/19 History [Mycostatin Cream] Omeprazole 20 mg PO QAM 12/12/16 12/09/19 History Triamcinolone 0.1% Cream [Kenalog 1 applic TOPICAL DAILY PRN 12/12/16 12/09/19 History 0.1% Cream] Insulin Glargine,Hum.rec.anlog 90 unit SQ HS 11/15/17 12/09/19 History [Basaglar Kwikpen U-100] HYDROcodone/APAP 10-325MG [Maynard 1 tab PO Q6H PRN 04/29/18 12/09/19 History 10-325] Cholecalciferol [Vitamin D3 (25 2,000 unit PO DAILY 09/02/19 12/09/19 History Mcg = 1000 Iu)] Morphine Sulfate [Ms Contin] 15 mg PO Q12HR 09/02/19 12/09/19 History Cyanocobalamin (Vitamin B-12) 1,000 mcg PO DAILY 12/08/19 12/09/19 History [Vitamin B-12] Dicyclomine [Bentyl] 20 mg PO QID PRN 12/08/19 12/09/19 History Insulin Lispro [Insulin Lispro 10 units SQ AC-TID 09/21/20 09/22/20 History Kwikpen U-100] Insulin Lispro [Insulin Lispro 12 units SQ HS 12/08/19 12/09/19 History Kwikpen U-100] Lisinopril-Hctz 20-25 mg 0.5 tab PO HS 12/08/19 12/09/19 History [Zestoretic 20-25] Metoprolol Succinate [Toprol XL] 25 mg PO HS 12/08/19 12/09/19 History hydrOXYzine pamoate [hydrOXYzine 25 mg PO HS 12/08/19 12/09/19 History PAMOATE] Allergies Allergy/AdvReac Type Severity Reaction Status Date / Time tramadol HCl [From Ultram] Allergy Unknown Abdominal Verified 12/09/19 08:24 Pain, diarrhea, severe headache pregabalin [From Lyrica] AdvReac Unknown INCREASED Verified 12/09/19 08:24 DEPRESSION propoxyphene napsylate AdvReac Unknown LOSS OF Verified 12/09/19 08:24 [From Darvocet-N 100] COORDINATION ANTIDEPRESSANTS AdvReac STATES Uncoded 12/09/19 02:50 INCREASE DEPRESSION Physical Examination Right lower extremity: Steri-Strips present over the anterior aspect of the knee. Moderate effusion present on the knee. No significant erythema. There is no significant warmth to touch. Dorsal streaking redness noted proximal or distal to the knee. Logroll maneuver the extremity reproduces no crying pain. Active and passive motion of the knee are difficult to achieve due to patient's pain that is reproduced. His sensation to light touch throughout the lower extremities intact. His calf is soft, there is no tenderness with palpation. His dorsalis pedis pulses 2+. Results - Labs Labs: Abnormal Lab Results - Last 24 Hours (Table) 12/09/19 12/09/19 12/09/19 Range/Units 03:05 03:05 07:20 WBC 13.2 H (3.8-10.6) k/uL RBC 4.21 L (4.30-5.90) m/uL Hgb 11.9 L (13.0-17.5) gm/dL Hct 36.8 L (39.0-53.0) % Neutrophils # 10.2 H (1.3-7.7) k/uL Sodium 135 L (137-145) mmol/L BUN 23 H (9-20) mg/dL Creatinine 1.38 H (0.66-1.25) mg/dL POC Glucose (mg/dL) 56 L (75-99) mg/dL C-Reactive Protein 31.8 H (<10.0) mg/L 12/09/19 Range/Units 07:41 WBC (3.8-10.6) k/uL RBC (4.30-5.90) m/uL Hgb (13.0-17.5) gm/dL Hct (39.0-53.0) % Neutrophils # (1.3-7.7) k/uL Sodium (137-145) mmol/L BUN (9-20) mg/dL Creatinine (0.66-1.25) mg/dL POC Glucose (mg/dL) 73 L (75-99) mg/dL C-Reactive Protein (<10.0) mg/L H & H 12/09/19 Range/Units 03:05 Hgb 11.9 L (13.0-17.5) gm/dL Hct 36.8 L (39.0-53.0) % Coagulation 12/09/19 Range/Units 03:05 INR 0.9 (<1.2) Result Diagrams: 12/09/19 03:05 12/09/19 03:05 Assessment and Plan Assessment: Right knee effusion History of recent right knee arthroscopy Other medical comorbidities Plan: After discussion of the case with Dr. Austin, I decided that an aspiration of the knee would be appropriate for both symptomatically treatment and diagnostic purposes. This was discussed with the patient, he is in a grandson wanted to atul rehman. Please see procedure note for further detail. Multiple labs have been ordered for the joint fluid that was sent to lab today Weight-bear as tolerated Ice and elevate often Patient takes high-dose pain medication via other medical problems, he can continue those. Recommend anti-inflammatory medication also Low suspicion of infection at this time, depending on laboratory results july d ischarge patient home today Further recommendations to follow Time with Patient: Less than 30
--- NOTE | 2019-12-09 11:59 | P.PCN ---
Date of Procedure: 12/09/19 Preoperative Diagnosis: Right knee effusion Postoperative Diagnosis: Same Procedure(s) Performed: Right knee aspiration Implants: None Anesthesia: none Surgeon: Doc Andersen Estimated Blood Loss (ml): 1 Pathology: none sent Condition: stable Disposition: no change Indications for Procedure: Right knee effusion and pain Operative Findings: Right knee hemarthrosis Description of Procedure: After discussion with attending Dr. Austin it was determined patient would benefit from a right knee aspiration, plan would then be to send fluid for lab workup. I discussed the procedure with the patient, this to include risk and benefits, he is in good understanding would like to proceed. Proper consent form was obtained, a timeout was done at bedside prior to procedure. The nurse was present during the procedure. Patient was lying supine, the knee was prepped with 2 chlorhexidine swabs and 1 alcohol swabs. An 18-gauge needle was used to aspirate about 40 mL of bloody joint fluid. There was no snapping peroneal material noted on exam. After proper aspiration, bandages placed. Patient tolerated the procedure well. Needle was then switched to a 22-gauge needle, I then utilized a red top and blue top tube, they were sent to lab.
[2019-12-09 12:04] LABS: Glucose,Whole Blood 63 mg/dL (75-99)
[2019-12-09] MEDS: ENOXAPARIN 40 MG/0.4 ML SYRINGE SQ SCH (12:21)
[2019-12-09] MEDS: INSULIN ASPART (NovoLOG) 100 UNIT/ML VIAL SQ SCH ×6 (12:23→21:31)
[2019-12-09 12:28] LABS: Glucose,Whole Blood 68 mg/dL (75-99)
--- NOTE | 2019-12-09 14:19 | US ---
EXAMINATION TYPE: US kidneys/renal and bladder DATE OF EXAM: 12/09/2019 COMPARISON: NONE CLINICAL HISTORY: abnormal creatnine. Abnormal labs EXAM MEASUREMENTS: Right Kidney: 12.5 x 6.7 x 5.3 cm Left Kidney: 12.2 x 6.1 x 5.0 cm Right Kidney: there is hypoechoic lesion medial= 2.7 x 1.8 x 1.7 cm, ill-defined Left Kidney: Appeared wnl, possible peripheral edema Bladder: wnl Bilateral Jets seen: No cortical medullary differentiation is maintained. Cortical echogenicity erin ears somewhat increased which can be seen with medical renal disease IMPRESSION: Findings suggest medical renal disease. Indeterminate exophytic lesion at the medial aspect of the ri ght kidney is noted.
[2019-12-09 16:30] LABS: Glucose,Whole Blood 113 mg/dL (75-99)
[2019-12-09] MEDS: VANCOMYCIN 1,500 MG in SODIUM CHLORIDE 0.9% 250 ML IVPB SCH (16:47)
--- NOTE | 2019-12-09 17:57 | P.CONS ---
History of Present Illness - Reason for Consult Consult date: 12/09/19 Medical management Requesting physician: Irvin Austin - Chief Complaint Left knee pain swelling - History of Present Illness Consultation: This is a pleasant 59-year-old patient of Dr. Talya Palm. Chronic stable medical conditions include diabetes, fibromyalgia, hypertension, osteoarthritis, obstructive sleep apnea uses CPAP, diverticulosis, hiatal hernia, monoclonal gammopathy of undetermined significance,. 5 days ago patient underwent left knee arthroscopy for a miniscule tear. This was an outpatient procedure. Since returning home patient's pain in the left knee progressively became worse swelling local warmth. Patient also developed fever and chills. Decreased appetite tired rundown. Patient felt to be septic. Admitted with septic arthritis. Review of systems: GEN.: [Fever and chills EYES: None HEENT: None NECK: None RESPIRATORY: None CARDIOVASCULAR: None GASTROINTESTINAL: None GENITOURINARY: None MUSCULOSKELETAL: [As above LYMPHATICS: None HEMATOLOGICAL: None PSYCHIATRY: None NEUROLOGICAL: None Past medical history to include: Diabetes, fibromyalgia, hard of hearing, hypertension, osteoarthritis, obstructive sleep apnea uses CPAP, diverticulosis, hiatal hernia, umbilical hernia, monoclonal gammopathy of undetermined significance, anxiety depression Social history: Patient has a both cane and a walker. Lives with his sister. Does not smoke or drink alcohol. Physical examination: VITAL SIGNS: 100.9, 113, 20, 134/86, 98% room air GENERAL: BMI 35.6, laying in bed,. EYES: Pupils equal. Conjunctiva normal. HEENT: External appearance of nose and ears normal, oral cavity grossly normal. NECK: JVD not raised; masses not palpable. HEART: First and second heart sounds are normal; no edema. LUNGS: Respiratory rate normal; clear to auscultation. ABDOMEN: Soft, nontender, liver spleen not palpable, no masses palpable. PSYCH: Alert and oriented x3; mood and affect normal. MUSCULAR skeletal: Swelling of the left knee with tenderness, local redness NEUROLOGICAL: Cranial nerves grossly intact; no facial asymmetry, power and sensation grossly intact. LYMPHATICS: No lymph nodes palpable in the axilla and neck INVESTIGATIONS, reviewed in the clinical context: White count 13.2 hemoglobin 11.9 platelets 214 potassium 4.6 bun 23 creatinine 1.38 Accu-Cheks 56, 73, 63 Assessment: -Suspect iatrogenic left knee septic arthritis following arthroscopic procedure -Sepsis from above -Acute kidney injury could be from sepsis. Do not have any old renal function in the records -Diabetes mellitus type 2, uncontrolled with hypoglycemia -Chronic fibromyalgia -Essential hypertension -Primary osteoarthritis -Obstructive sleep apnea uses CPAP -Chronic diverticulosis asymptomatic -Hiatal hernia -Monoclonal gammopathy of undetermined significance -Obesity BMI 35.6 Plan: Patient with IV vancomycin. We'll check a renal ultrasound. Home medications are continued. Told patient not to take NSAIDs will discontinue the same. Give IV fluids. Repeat labs in the morning. Thank you Dr. Menendez Past Medical History Past Medical History: Blood Disorder, Chest Pain / Angina, Diabetes Mellitus, Fibromyalgia, Hearing Disorder / Deafness, Hypertension, Musculoskeletal Disord er, Osteoarthritis (OA), Skin Disorder, Sleep Apnea/CPAP/BIPAP Additional Past Medical History / Comment(s): MIGRAINES, DIVERTICULOSIS, HIATAL HERNIA, umbilical hernia, ATHLETES FOOT, RINGING IN EARS, DDD, yeast rash in armpits and groins, occ. urinary incontinence, Monoclonal Gammapathy of Undetermined Significance(MGUS). Hx cellulitis. Has cpap machine. Recent increased lower back pain. History of Any Multi-Drug Resistant Organisms: None Reported Past Surgical History: Orthopedic Surgery Additional Past Surgical History / Comment(s): RIGHT ROTATOR CUFF, CARPAL TUNNEL, BILATERAL INGUINAL HERNIA REPAIRS, ARTHROSCOPY BILATERAL KNEES, RIGHT ELBOW CUBITAL ULNAR SURGERY, PREVIOUS PAIN CLINIC PROCEDURES. Past Anesthesia/Blood Transfusion Reactions: Previous Problems w/ Anesthesia, Family History of Problems w/ Anesthesia Additional Past Anesthesia/Blood Transfusion Reaction / Comm: STATES HE NEEDED MORE ANESTHESIA, " I have a high tolerance". Mother experienced memory issues after anesthesia "for a couple weeks". Past Psychological History: Anxiety, Depression Smoking Status: Never smoker Past Alcohol Use History: None Reported Past Drug Use History: None Reported - Past Family History Mother Family Medical History: Deep Vein Thrombosis (DVT) Additional Family Medical History / Comment(s): Precancerous cells - uterine. Sister(s) Family Medical History: Cancer Additional Family Medical History / Comment(s): Skin Cancer. Medications and Allergies Home Medications Medication Instructions Recorded Confirmed Type Lisinopril-Hctz 20-25 mg 1 tab PO QAM 09/22/13 12/09/19 History [Zestoretic 20-25] metFORMIN HCL [Glucophage] 2,000 mg PO HS 09/22/13 12/09/19 History Cyclobenzaprine [Flexeril] 10 mg PO TID PRN 10/15/13 12/09/19 History Ergocalciferol [Vitamin D2] 50,000 unit PO Q30D 12/12/16 12/09/19 History Nystatin 100,000Unit/gm Cream 1 applic TOPICAL DAILY PRN 12/12/16 12/09/19 History [Mycostatin Cream] Omeprazole 20 mg PO QAM 12/12/16 12/09/19 History Triamcinolone 0.1% Cream [Kenalog 1 applic TOPICAL DAILY PRN 12/12/16 12/09/19 History 0.1% Cream] Insulin Glargine,Hum.rec.anlog 90 unit SQ HS 11/15/17 12/09/19 History [Basaglar Kwikpen U-100] HYDROcodone/APAP 10-325MG [[place] 1 tab PO Q6H PRN 04/29/18 12/09/19 History 10-325] Cholecalciferol [Vitamin D3 (25 2,000 unit PO DAILY 09/02/19 12/09/19 History Mcg = 1000 Iu)] Morphine Sulfate [Ms Contin] 15 mg PO Q12HR 09/02/19 12/09/19 History Cyanocobalamin (Vitamin B-12) 1,000 mcg PO DAILY 12/08/19 12/09/19 History [Vitamin B-12] Dicyclomine [Bentyl] 20 mg PO QID PRN 12/08/19 12/09/19 History Insulin Lispro [Insulin Lispro 10 units SQ AC-TID 12/08/19 12/09/19 History Kwikpen U-100] Insulin Lispro [Insulin Lispro 12 units SQ HS 12/08/19 12/09/19 History Kwikpen U-100] Lisinopril-Hctz 20-25 mg 0.5 tab PO HS 12/08/19 12/09/19 History [Zestoretic 20-25] Metoprolol Succinate [Toprol XL] 25 mg PO HS 12/08/19 12/09/19 History hydrOXYzine pamoate [hydrOXYzine 25 mg PO HS 12/08/19 12/09/19 History PAMOATE] Allergies Allergy/AdvReac Type Severity Reaction Status Date / Time tramadol HCl [From Ultram] Allergy Unknown Abdominal Verified 12/09/19 08:24 Pain, diarrhea, severe headache pregabalin [From Lyrica] AdvReac Unknown INCREASED Verified 12/09/19 08:24 DEPRESSION propoxyphene napsylate AdvReac Unknown LOSS OF Verified 12/09/19 08:24 [From Darvocet-N 100] COORDINATION ANTIDEPRESSANTS AdvReac STATES Uncoded 12/09/19 02:50 INCREASE DEPRESSION Physical Exam Vitals: Vital Signs Temp Pulse Resp BP BP Pulse Ox 12/09/19 07:00 98.9 F 16 127/76 95 12/09/19 05:34 99 18 113/61 98 12/09/19 04:43 99.9 F H 12/09/19 02:47 100.9 F H 113 H 20 134/86 98 Intake and Output 12/08/19 12/09/19 12/09/19 22:59 06:59 14:59 Other: Voiding Method Toilet Urinal # Voids 1 1 Weight 97.069 kg Results CBC & Chem 7: 12/09/19 03:05 12/09/19 03:05 Labs: Abnormal Lab Results - Last 24 Hours (Table) 12/09/19 12/09/19 12/09/19 Range/Units 03:05 03:05 07:20 WBC 13.2 H (3.8-10.6) k/uL RBC 4.21 L (4.30-5.90) m/uL Hgb 11.9 L (13.0-17.5) gm/dL Hct 36.8 L (39.0-53.0) % Neutrophils # 10.2 H (1.3-7.7) k/uL Sodium 135 L (137-145) mmol/L BUN 23 H (9-20) mg/dL Creatinine 1.38 H (0.66-1.25) mg/dL POC Glucose (mg/dL) 56 L (75-99) mg/dL C-Reactive Protein 31.8 H (<10.0) mg/L 12/09/19 Range/Units 07:41 WBC (3.8-10.6) k/uL RBC (4.30-5.90) m/uL Hgb (13.0-17.5) gm/dL Hct (39.0-53.0) % Neutrophils # (1.3-7.7) k/uL Sodium (137-145) mmol/L BUN (9-20) mg/dL Creatinine (0.66-1.25) mg/dL POC Glucose (mg/dL) 73 L (75-99) mg/dL C-Reactive Protein (<10.0) mg/L
[2019-12-09] MEDS ORDERED: INSULIN DETEMIR (LEVEMIR) 100 UNIT/ML SYR SQ SCH (21:00)
[2019-12-09 21:11] LABS: Glucose,Whole Blood 170 mg/dL (75-99)
[2019-12-09] MEDS: metFORMIN 500 MG TAB PO SCH (21:26)
[2019-12-09] MEDS: MORPHINE SULFATE ER 15 MG TABLET PO SCH (21:26)
[2019-12-09] MEDS: hydrOXYzine pamoate 25 MG CAP PO SCH (21:28)
[2019-12-09] MEDS: METOPROLOL SUCCINATE (ER) 25 MG TAB.ER.24H PO SCH (21:28)
[2019-12-10] MEDS: SODIUM CHLORIDE 0.9% 1,000 ML IV SCH ×3 (02:05→16:50)
[2019-12-10 06:55] LABS: Glucose,Whole Blood 64 mg/dL (75-99)
[2019-12-10] MEDS: INSULIN ASPART (NovoLOG) 100 UNIT/ML VIAL SQ SCH ×8 (07:19→21:03)
[2019-12-10 07:26] LABS: Glucose,Whole Blood 80 mg/dL (75-99)
[2019-12-10] MEDS: HYDROmorphone 0.5 MG/0.5 ML SYRINGE IVP PRN ×3 (07:33→21:42)
[2019-12-10] MEDS: CHOLECALCIFEROL 1,000 UNIT TAB PO SCH (08:08)
[2019-12-10] MEDS: CYANOCOBALAMIN 500 MCG TAB PO SCH (08:09)
[2019-12-10] MEDS: ENOXAPARIN 40 MG/0.4 ML SYRINGE SQ SCH (08:12)
[2019-12-10] MEDS: PANTOPRAZOLE 40 MG TABLET PO SCH (08:12)
[2019-12-10] MEDS: LISINOPRIL-HCTZ 20-25 MG 1 EACH TAB PO SCH ×2 (08:12→20:59)
[2019-12-10] MEDS: VANCOMYCIN 1,500 MG in SODIUM CHLORIDE 0.9% 250 ML IVPB SCH (08:13)
[2019-12-10] MEDS: MORPHINE SULFATE ER 15 MG TABLET PO SCH ×2 (08:38→21:00)
[2019-12-10 09:01] LABS: African American GFR (CKD) 69.2 (60.0-200.0); Non-African American GFR(CKD) 59.7 (60.0-200.0)
[2019-12-10 10:51] LABS: Appearance,BF Bloody; Nucleated Cells, Body Fluid 16500 /uL
[2019-12-10 10:52] LABS: RBC, Body Fluid 792500 /uL
[2019-12-10 11:06] LABS: Mononuclear WBC,Body Fluid 6 %; Polynuclear WBC,Body Fluid 94 %; Total Cells Counted,Body Fluid 100
--- NOTE | 2019-12-10 11:13 | P.PN ---
Subjective Progress Note Date: 12/10/19 Principal diagnosis: Left knee hemarthrosis, Left knee osteoarthritis, status post left knee arthroscopy Patient was evaluated at bedside today, he is resting comfortably. He notes significant improvement in his knee discomfort. He denies any fevers or chills. I discussed with the laboratory early this morning is pending labs, they were not done yesterday, they're working on them now. Continues to show no significant signs of infection at this time. Denies any chest pain or shortness of breath. Objective - Vital Signs Vital signs: Vital Signs Temp 98.8 F 12/10/19 07:00 Pulse 79 12/10/19 07:00 Resp 18 12/10/19 07:00 BP 132/64 12/10/19 07:00 Pulse Ox 97 12/10/19 07:00 Intake & Output 12/09/19 12/10/19 12/10/19 18:59 06:59 18:59 Intake Total 300 Balance 300 Intake: Oral 300 Other: Voiding Method Toilet Urinal # Voids 2 - Exam Left lower extremity: Portal sites are well healing, there is no active drainage. There is no increase in erythema or warmth to the skin. There is a mild effusion present on the knee. Patient's range of motion is significantly improved with extension and flexion. No strength deficits appreciated with the flexion and extension. Plantar flexion, dorsiflexion, EHL, FHL are intact. Calf is soft, no tenderness with palpation. Sensory exam light touch throughout the extremity is intact. - Labs CBC & Chem 7: 12/09/19 03:05 12/10/19 05:52 Labs: Abnormal Lab Results - Last 24 Hours (Table) 12/09/19 12/09/19 12/09/19 Range/Units 03:05 12:03 12:26 Est GFR (CKD-EPI)NonAf (60.0-200.0) POC Glucose (mg/dL) 63 L 68 L (75-99) mg/dL Procalcitonin 0.18 H (0.02-0.09) ng/mL 12/09/19 12/09/19 12/10/19 Range/Units 16:29 21:09 05:52 Est GFR (CKD-EPI)NonAf 59.7 L (60.0-200.0) POC Glucose (mg/dL) 113 H 170 H (75-99) mg/dL Procalcitonin (0.02-0.09) ng/mL 12/10/19 Range/Units 06:52 Est GFR (CKD-EPI)NonAf (60.0-200.0) POC Glucose (mg/dL) 64 L (75-99) mg/dL Procalcitonin (0.02-0.09) ng/mL Microbiology - Last 24 Hours (Table) 12/09/19 03:05 Blood Culture - Preliminary Blood No Growth after 24 hours Assessment and Plan Assessment: Left knee effusion/left knee hemarthrosis History of recent left knee arthroscopy Other medical comorbidities Plan: Cell count was reviewed of left knee joint fluid, no evidence of infection. Awaiting Gram stain and cultures Weight-bear as tolerated Ice and elevate often Patient can resume his normally prescribe pain medication after discharge At this time I have a very low clinical concern of infection involving the left knee. I believe this is more of a hemarthrosis due to his recent surgery and history of osteoarthritis involving the left knee. Plan for discharge home today. We'll continue to follow labs and review once cultures are finished.
[2019-12-10 11:33] LABS: Glucose,Whole Blood 141 mg/dL (75-99)
[2019-12-10] MEDS: DAPTOmycin 500 MG in SODIUM CHLORIDE 0.9% 50 ML IVPB SCH (13:06)
[2019-12-10 16:32] LABS: Glucose,Whole Blood 106 mg/dL (75-99)
[2019-12-10 20:45] LABS: Glucose,Whole Blood 208 mg/dL (75-99)
--- NOTE | 2019-12-10 20:47 | P.PN ---
Progress Note - Text Progress Note Date: 12/10/19 - Chief Complaint Left knee pain swelling Consultation: This is a pleasant 59-year-old patient of Dr. Talya Palm. Chronic stable medical conditions include diabetes, fibromyalgia, hypertension, osteoarthritis, obstructive sleep apnea uses CPAP, diverticulosis, hiatal hernia, monoclonal gammopathy of undetermined significance,. 5 days ago patient underwent left knee arthroscopy for a miniscule tear. This was an outpatient procedure. Since returning home patient's pain in the left knee progressively became worse swelling local warmth. Patient also developed fever and chills. Decreased appetite tired rundown. Patient felt to be septic. Admitted with septic arthritis. Today-patient is left knee better. Patient up to the bathroom with a cane. No fever. Cultures pending. Review of systems: Was done for constitutional, cardiovascular, GI, pulmonary. relevant finding as above Active Medications Acetaminophen (Acetaminophen Tab 325 Mg Tab) 650 mg PO Q6HR PRN PRN Reason: Mild Pain or Fever > 100.5 Cholecalciferol (Cholecalciferol 1,000 Unit Tab) 2,000 unit PO DAILY [facility] Last Admin: 12/10/19 08:08 Dose: 2,000 unit Documented by: Cyanocobalamin (Cyanocobalamin 500 Mcg Tab) 1,000 mcg PO DAILY [facility] Last Admin: 12/10/19 08:09 Dose: 1,000 mcg Documented by: Cyclobenzaprine HCl (Cyclobenzaprine 10 Mg Tab) 10 mg PO TID PRN PRN Reason: Muscle Spasm Dicyclomine HCl (Dicyclomine 20 Mg Tab) 20 mg PO QID PRN PRN Reason: loose stools Enoxaparin Sodium (Enoxaparin 40 Mg/0.4 Ml Syringe) 40 mg SQ DAILY [facility] Last Admin: 12/10/19 08:12 Dose: 40 mg Documented by: Lisinopril/HCTZ (Lisinopril-Hctz 20-25 Mg 1 Each Tab) 0.5 each PO HS [facility] Last Admin: 12/09/19 22:15 Dose: 0.5 each Documented by: Lisinopril/HCTZ (Lisinopril-Hctz 20-25 Mg 1 Each Tab) 1 each PO QAM [facility] Last Admin: 12/10/19 08:12 Dose: 1 each Documented by: Hydromorphone HCl (Hydromorphone 0.5 Mg/0.5 Ml Syringe) 0.5 mg IVP Q3HR PRN PRN Reason: Moderate Pain Last Admin: 12/10/19 12:41 Dose: 0.5 mg Documented by: Hydroxyzine Pamoate (Hydroxyzine Pamoate 25 Mg Cap) 25 mg PO [facility] Last Admin: 12/09/19 21:28 Dose: 25 mg Documented by: Sodium Chloride (Saline 0.9%) 1,000 mls @ 130 mls/hr IV .[id number] [facility] Last Admin: 12/10/19 16:50 Dose: Not Given Documented by: Daptomycin 500 mg/ Sodium (Chloride) 50 mls @ 100 mls/hr IVPB Q24H [facility]; Protocol Last Admin: 12/10/19 13:06 Dose: 100 mls/hr Documented by: Insulin Aspart (Insulin Aspart (Novolog) 100 Unit/Ml Vial) 10 unit SQ AC-TID [facility] Last Admin: 12/10/19 16:50 Dose: Not Given Documented by: Insulin Aspart (Insulin Aspart (Novolog) 100 Unit/Ml Vial) 12 unit SQ [facility] Last Admin: 12/09/19 21:29 Dose: 12 unit Documented by: Insulin Aspart (Insulin Aspart (Novolog) 100 Unit/Ml Vial) 0 unit SQ [facility]; Protocol Last Admin: 12/10/19 16:50 Dose: Not Given Documented by: Insulin Detemir (Insulin Detemir (Levemir) 100 Unit/Ml Syr) 76 unit SQ [facility] Metformin HCl (Metformin 500 Mg Tab) 2,000 mg PO [facility] Last Admin: 12/09/19 21:26 Dose: 2,000 mg Documented by: Metoprolol Succinate (Metoprolol Succinate (Er) 25 Mg Tab.Er.24h) 25 mg PO [facility] Last Admin: 12/09/19 21:28 Dose: 25 mg Documented by: Morphine Sulfate (Morphine Sulfate Er 15 Mg Tablet) 15 mg PO Q12HR [facility] Last Admin: 12/10/19 08:38 Dose: 15 mg Documented by: Naloxone HCl (Naloxone 0.4 Mg/Ml 1 Ml Vial) 0.2 mg IV Q2M PRN PRN Reason: Opioid Reversal Nystatin (Nystatin 100,000unit/Gm Cream 30 Gm Tube) 1 applic TOPICAL DAILY PRN PRN Reason: Skin Irritation Pantoprazole Sodium (Pantoprazole 40 Mg Tablet) 40 mg PO QAM [facility] Last Admin: 12/10/19 08:12 Dose: 40 mg Documented by: Triamcinolone Acetonide (Triamcinolone 0.1% Cream 80 Gm Tube) 1 applic TOPICAL DAILY PRN PRN Reason: Skin Irritation Physical examination: VITAL SIGNS: Afebrile, 96, 24, 134/74, 96% room air GENERAL: Sitting up, comfortable EYES: Pupils equal. Conjunctiva normal. HEENT: External appearance of nose and ears normal, oral cavity grossly normal. NECK: JVD not raised; masses not palpable. HEART: First and second heart sounds are normal; no edema. LUNGS: Respiratory rate normal; clear to auscultation. ABDOMEN: Soft, nontender, liver spleen not palpable, no masses palpable. PSYCH: Alert and oriented x3; mood and affect normal. MUSCULAR skeletal: Swelling of the left knee with tenderness, local redness INVESTIGATIONS, reviewed in the clinical context: Creatinine 1.3 Previous testing White count 13.2 hemoglobin 11.9 platelets 214 potassium 4.6 bun 23 creatinine 1.38 Accu-Cheks 56, 73, 63 Assessment: -Suspect iatrogenic left knee septic arthritis following arthroscopic procedure -Sepsis from above -Acute kidney injury could be from sepsis. Do not have any old renal function in the records -Diabetes mellitus type 2, uncontrolled with hypoglycemia -Chronic fibromyalgia -Essential hypertension -Primary osteoarthritis -Obstructive sleep apnea uses CPAP -Chronic diverticulosis asymptomatic -Hiatal hernia -Monoclonal gammopathy of undetermined significance -Obesity BMI 35.6 Plan: Because of patient's renal function would change vancomycin to daptomycin. Dr. Menendez requested disservice to be changed over to me. Accepted the same. Consult ID. Care was discussed with the patient. Questions answered. Thank you Dr. Menendez
[2019-12-10] MEDS: METOPROLOL SUCCINATE (ER) 25 MG TAB.ER.24H PO SCH (20:59)
[2019-12-10] MEDS: hydrOXYzine pamoate 25 MG CAP PO SCH (20:59)
[2019-12-10] MEDS: metFORMIN 500 MG TAB PO SCH (21:00)
[2019-12-10] MEDS: INSULIN DETEMIR (LEVEMIR) 100 UNIT/ML SYR SQ SCH (21:01)
[2019-12-10 21:13] LABS: Hemoglobin A1C 8.4 % (4.0-6.0)
--- NOTE | 2019-12-10 22:27 | P.CONS ---
History of Present Illness - Reason for Consult Consult date: 12/10/19 Postop infection Requesting physician: Emerson Delgadillo - Chief Complaint Left knee pain and swelling x few days - History of Present Illness Patient is a 59 year male who is status post left knee arthroscopy completed by Dr. Austin last on 12/04/2019 patient was subsequently discharged home patient presented back to [facility] ER yesterday for evaluation of worsening pain to the right knee that have been getting worse since his surgery patient is in the pain to be sharp and his creatinine clearance is almost 8-9 out of 10 with no radiation with associated swelling of the right knee but no significant redness patient denies high-grade fever however on arrival to the ER patient did have a fever of 100.9F patient did have elevated white count of 13,000 patient did have x-rays of the right elevated sugars after a new fracture mild antalgic changes in the medial joint space knee joint effusion no evidence of osteomyelitis, patient was evaluated by orthopedics and the patient is status post right knee arthrocentesis with removal of 4 bottles of blood stained fluid for the patient, patient was empirically treated with vancomycin because of mildly elevated creatinine vancomycin has been switched over to daptomycin infection was consulted with concern for possible postop infection, patient did mention overall improvement in his symptoms of left knee swelling and pain after aspiration of his right knee Review of Systems Positive point has been mentioned in the HPI rest of the systems are negative Past Medical History Past Medical History: Blood Disorder, Chest Pain / Angina, Diabetes Mellitus, Fibromyalgia, Hearing Disorder / Deafness, Hypertension, Musculoskeletal Disorder, Osteoarthritis (OA), Skin Disorder, Sleep Apnea/CPAP/BIPAP Additional Past Medical History / Comment(s): MIGRAINES, DIVERTICULOSIS, HIATAL HERNIA, umbilical hernia, ATHLETES FOOT, RINGING IN EARS, DDD, yeast rash in armpits and groins, occ. urinary incontinence, Monoclonal Gammapathy of Undetermined Significance(MGUS). Hx cellulitis. Has cpap machine. Recent increased lower back pain. History of Any Multi-Drug Resistant Organisms: None Reported Past Surgical History: Orthopedic Surgery Additional Past Surgical History / Comment(s): RIGHT ROTATOR CUFF, CARPAL TUNNEL, BILATERAL INGUINAL HERNIA REPAIRS, ARTHROSCOPY BILATERAL KNEES, RIGHT ELBOW CUBITAL ULNAR SURGERY, PREVIOUS PAIN CLINIC PROCEDURES. Past Anesthesia/Blood Transfusion Reactions: Previous Problems w/ Anesthesia, Family History of Problems w/ Anesthesia Additional Past Anesthesia/Blood Transfusion Reaction / Comm: STATES HE NEEDED MORE ANESTHESIA, " I have a high tolerance". Mother experienced memory issues after anesthesia "for a couple weeks". Past Psychological History: Anxiety, Depression Smoking Status: Never smoker Past Alcohol Use History: None Reported Past Drug Use History: None Reported - Past Family History Mother Family Medical History: Deep Vein Thrombosis (DVT) Additional Family Medical History / Comment(s): Precancerous cells - uterine. Sister(s) Family Medical History: Cancer Additional Family Medical History / Comment(s): Skin Cancer. Medications and Allergies Home Medications Medication Instructions Recorded Confirmed Type Lisinopril-Hctz 20-25 mg 1 tab PO QAM 09/22/13 12/09/19 History [Zestoretic 20-25] metFORMIN HCL [Glucophage] 2,000 mg PO HS 09/22/13 12/09/19 History Cyclobenzaprine [Flexeril] 10 mg PO TID PRN 10/15/13 12/09/19 History Ergocalciferol [Vitamin D2] 50,000 unit PO Q30D 12/12/16 12/09/19 History Nystatin 100,000Unit/gm Cream 1 applic TOPICAL DAILY PRN 12/12/16 12/09/19 History [Mycostatin Cream] Omeprazole 20 mg PO QAM 12/12/16 12/09/19 History Triamcinolone 0.1% Cream [Kenalog 1 applic TOPICAL DAILY PRN 12/12/16 12/09/19 History 0.1% Cream] Insulin Glargine,Hum.rec.anlog 90 unit SQ HS 11/15/17 12/09/19 History [Basaglar Kwikpen U-100] HYDROcodone/APAP 10-325MG [[place] 1 tab PO Q6H PRN 04/29/18 12/09/19 History 10-325] Cholecalciferol [Vitamin D3 (25 2,000 unit PO DAILY 09/02/19 12/09/19 History Mcg = 1000 Iu)] Morphine Sulfate [Ms Contin] 15 mg PO Q12HR 09/02/19 12/09/19 History Cyanocobalamin (Vitamin B-12) 1,000 mcg PO DAILY 12/08/19 12/09/19 History [Vitamin B-12] Dicyclomine [Bentyl] 20 mg PO QID PRN 12/08/19 12/09/19 History Insulin Lispro [Insulin Lispro 10 units SQ AC-TID 12/08/19 12/09/19 History Kwikpen U-100] Insulin Lispro [Insulin Lispro 12 units SQ HS 12/08/19 12/09/19 History Kwikpen U-100] Lisinopril-Hctz 20-25 mg 0.5 tab PO HS 12/08/19 12/09/19 History [Zestoretic 20-25] Metoprolol Succinate [Toprol XL] 25 mg PO HS 12/08/19 12/09/19 History hydrOXYzine pamoate [hydrOXYzine 25 mg PO HS 12/08/19 12/09/19 History PAMOATE] Allergies Allergy/AdvReac Type Severity Reaction Status Date / Time tramadol HCl [From Ultram] Allergy Unknown Abdominal Verified 12/09/19 08:24 Pain, diarrhea, severe headache pregabalin [From Lyrica] AdvReac Unknown INCREASED Verified 12/09/19 08:24 DEPRESSION propoxyphene napsylate AdvReac Unknown LOSS OF Verified 12/09/19 08:24 [From Darvocet-N 100] COORDINATION ANTIDEPRESSANTS AdvReac STATES Uncoded 12/09/19 02:50 INCREASE DEPRESSION Physical Exam Vitals: Vital Signs Temp Pulse Resp BP Pulse Ox 12/10/19 19:32 97.9 F 96 18 151/73 95 12/10/19 14:47 98.7 F 110 H 18 128/78 98 12/10/19 12:02 99.2 F 96 24 134/74 96 12/10/19 07:00 98.8 F 79 18 132/64 97 12/10/19 01:27 99.3 F 96 118/69 95 Intake and Output 12/10/19 12/10/19 12/10/19 06:59 14:59 22:59 Intake Total 300 200 Balance 300 200 Intake: Oral 300 200 Other: Voiding Method Toilet Toilet Urinal Urinal # Voids 3 GENERAL DESCRIPTION: Middle-aged male up in bed, no distress. No tachypnea or accessory muscle of respiration use. HEENT: Shows Pallor , no scleral icterus. Oral mucous membrane is dry. No pharyngeal erythema or thrush NECK: Trachea central, no thyromegaly. LUNGS: Unlabored breathing. Clear to auscultation anteriorly. No wheeze or crackle. HEART: S1, S2, regular rate and rhythm. No loud murmur ABDOMEN: Soft, no tenderness , guarding or rigidity, no organomegaly EXTREMITIES: Left knee with minimal swelling, there is no redness minimal warmth no drainage. SKIN: No rash, no masses palpable. NEUROLOGICAL: The patient is awake, alert, oriented x3, mood and affect normal. Results CBC & Chem 7: 12/09/19 03:05 12/10/19 05:52 Labs: Abnormal Lab Results - Last 24 Hours (Table) 12/09/19 12/10/19 12/10/19 Range/Units 03:05 05:52 06:52 Est GFR (CKD-EPI)NonAf 59.7 L (60.0-200.0) POC Glucose (mg/dL) 64 L (75-99) mg/dL Hemoglobin A1c 8.4 H (4.0-6.0) % 12/10/19 12/10/19 12/10/19 Range/Units 11:32 16:30 20:42 Est GFR (CKD-EPI)NonAf (60.0-200.0) POC Glucose (mg/dL) 141 H 106 H 208 H (75-99) mg/dL Hemoglobin A1c (4.0-6.0) % Microbiology - Last 24 Hours (Table) 12/09/19 11:50 Anaerobic Culture - Preliminary Knee - Left 12/09/19 11:50 Body Fluid Culture - Preliminary Knee - Left 12/09/19 03:05 Blood Culture - Preliminary Blood No Growth after 24 hours Assessment and Plan Assessment: 1- patient presented to hospital with left knee pain and swelling in this patient who is status post a second left knee arthroscopic more likely representing hemarthrosis Clinical not behaving as infection him this patient with no redness of the left knee and the fluid removed after arthrocentesis is mostly bloody and no significant elevated white count 2-patient with borderline kidney function high risk OF TOXICITY FROM VANCOMYCIN (1) Hemarthrosis, left knee Current Visit: Yes Status: Acute Code(s): M25.062 - HEMARTHROSIS, LEFT KNEE SNOMED Code(s): 166738539867511 Plan: 1- in view of the overall low clinical suspicious for septic arthritis or postop infection antibiotic and be safely discontinued We will follow on clinical condition and cultures to further adjust medication if needed Thank you for this consultation will follow this patient with you Time with Patient: Greater than 30
[2019-12-11] MEDS ORDERED: VANCOMYCIN 1,750 MG in SODIUM CHLORIDE 0.9% 500 ML 500 ML IVPB SCH ×2
[2019-12-11] MEDS: SODIUM CHLORIDE 0.9% 1,000 ML IV SCH ×2 (00:35→07:41)
[2019-12-11 06:39] LABS: HCT 34.8 % (39.0-53.0); HGB 11.5 gm/dL (13.0-17.5); MCH 29.5 pg (25.0-35.0); MCHC 33.1 g/dL (31.0-37.0); Mean Platelet Volume 7.9; Platelet Count 216 k/uL (150-450); RBC 3.91 m/uL (4.30-5.90); RDW 13.6 % (11.5-15.5); WBC 9.9 k/uL (3.8-10.6)
[2019-12-11 07:02] LABS: Glucose,Whole Blood 64 mg/dL (75-99)
[2019-12-11 07:23] LABS: Glucose,Whole Blood 50 mg/dL (75-99)
[2019-12-11 07:24] LABS: Glucose,Whole Blood 53 mg/dL (75-99)
[2019-12-11 07:24] LABS: Glucose,Whole Blood 59 mg/dL (75-99)
[2019-12-11] MEDS: INSULIN ASPART (NovoLOG) 100 UNIT/ML VIAL SQ SCH ×8 (07:34→22:28)
[2019-12-11 07:37] LABS: Glucose,Whole Blood 91 mg/dL (75-99)
[2019-12-11] MEDS: MORPHINE SULFATE ER 15 MG TABLET PO SCH ×2 (07:45→21:52)
[2019-12-11] MEDS: CHOLECALCIFEROL 1,000 UNIT TAB PO SCH (07:45)
[2019-12-11] MEDS: PANTOPRAZOLE 40 MG TABLET PO SCH (07:45)
[2019-12-11] MEDS: ENOXAPARIN 40 MG/0.4 ML SYRINGE SQ SCH (07:45)
[2019-12-11] MEDS: CYANOCOBALAMIN 500 MCG TAB PO SCH (07:45)
[2019-12-11] MEDS: LISINOPRIL-HCTZ 20-25 MG 1 EACH TAB PO SCH (07:46)
[2019-12-11 09:22] LABS: African American GFR (CKD) 63.3 (60.0-200.0); Anion Gap 9.2 mmol/L (4.00-12.00); BUN/Creat Ratio 16.43 Ratio (12.00-20.00); Carbon Dioxide 24.8 mmol/L (21.6-31.8); Non-African American GFR(CKD) 54.6 (60.0-200.0); Potassium 4.5 mmol/L (3.5-5.5)
[2019-12-11 11:22] LABS: Glucose,Whole Blood 131 mg/dL (75-99)
[2019-12-11] MEDS: DAPTOmycin 500 MG in SODIUM CHLORIDE 0.9% 50 ML IVPB SCH (12:55)
[2019-12-11] MEDS: HYDROmorphone 0.5 MG/0.5 ML SYRINGE IVP PRN (12:55)
--- NOTE | 2019-12-11 13:15 | P.NPCON ---
History of Present Illness - Reason for Consult acute renal failure, chronic renal failure - History of Present Illness Reason for consultation: Chronic kidney disease History of present illness: Patient is a 59-year-old male seen in consultation for chronic kidney disease. It appears patient has chronic kidney disease stage III with baseline creatinine near 1.3-1.4. Etiology is nephrosclerosis and chronic interstitial nephritis from long-term nonsteroidal use. Patient does not follow with a online services manager outpatient. Patient underwent left knee surgery on December 03 and did well. However patient states he started developing pain in his knee the last few days as well as a fever. He underwent aspiration of the knee effusion on December 08. He admits to good urine output. No hematuria or dysuria. Patient states he used to take Motrin 600 mg 4 times a day for several years but stopped a year ago. He denies family history of renal disease. He has long-standing history of diabetes mellitus as well as hypertension. He is maintained on lisinopril and hydrochlorothiazide which she takes twice a day. Oral intake is good. No vomiting or diarrhea. No edema. He is able to ambulate. No syncope can pain at this time. Vital signs are stable. General: The patient appeared well nourished and normally developed. HEENT: Head exam is unremarkable. Neck is without jugular venous distension. LUNGS: Lungs are clear to auscultation and percussion. Breath sounds decreased. HEART: Rate and Rhythm are regular. ABDOMEN: Soft, nontender. EXTREMITITES: No clubbing, cyanosis, or edema. Past Medical History Past Medical History: Blood Disorder, Chest Pain / Angina, Diabetes Mellitus, Fibromyalgia, Hearing Disorder / Deafness, Hypertension, Musculoskeletal Disorder, Osteoarthritis (OA), Skin Disorder, Sleep Apnea/CPAP/BIPAP Additional Past Medical History / Comment(s): MIGRAINES, DIVERTICULOSIS, HIATAL HERNIA, umbilical hernia, ATHLETES FOOT, RINGING IN EARS, DDD, yeast rash in armpits and groins, occ. urinary incontinence, Monoclonal Gammapathy of Undetermined Significance(MGUS). Hx cellulitis. Has cpap machine. Recent increased lower back pain. History of Any Multi-Drug Resistant Organisms: None Reported Past Surgical History: Orthopedic Surgery Additional Past Surgical History / Comment(s): RIGHT ROTATOR CUFF, CARPAL TUNNEL, BILATERAL INGUINAL HERNIA REPAIRS, ARTHROSCOPY BILATERAL KNEES, RIGHT ELBOW CUBITAL ULNAR SURGERY, PREVIOUS PAIN CLINIC PROCEDURES. Past Anesthesia/Blood Transfusion Reactions: Previous Problems w/ Anesthesia, Family History of Problems w/ Anesthesia Additional Past Anesthesia/Blood Transfusion Reaction / Comment(s): STATES HE NEEDED MORE ANESTHESIA, " I have a high tolerance". Mother experienced memory issues after anesthesia "for a couple weeks". Past Psychological History: Anxiety, Depression Smoking Status: Never smoker Past Alcohol Use History: None Reported Past Drug Use History: None Reported - Past Family History Mother Family Medical History: Deep Vein Thrombosis (DVT) Additional Family Medical History / Comment(s): Precancerous cells - uterine. Sister(s) Family Medical History: Cancer Additional Family Medical History / Comment(s): Skin Cancer. Medications and Allergies Home Medications Medication Instructions Recorded Confirmed Type Lisinopril-Hctz 20-25 mg 1 tab PO QAM 09/22/13 12/09/19 History [Zestoretic 20-25] metFORMIN HCL [Glucophage] 2,000 mg PO HS 09/22/13 12/09/19 History Cyclobenzaprine [Flexeril] 10 mg PO TID PRN 10/15/13 12/09/19 History Ergocalciferol [Vitamin D2] 50,000 unit PO Q30D 12/12/16 12/09/19 History Nystatin 100,000Unit/gm Cream 1 applic TOPICAL DAILY PRN 12/12/16 12/09/19 History [Mycostatin Cream] Omeprazole 20 mg PO QAM 12/12/16 12/09/19 History Triamcinolone 0.1% Cream [Kenalog 1 applic TOPICAL DAILY PRN 12/12/16 12/09/19 History 0.1% Cream] Insulin Glargine,Hum.rec.anlog 90 unit SQ HS 11/15/17 12/09/19 History [Basaglar Kwikpen U-100] HYDROcodone/APAP 10-325MG [[place] 1 tab PO Q6H PRN 04/29/18 12/09/19 History 10-325] Cholecalciferol [Vitamin D3 (25 2,000 unit PO DAILY 09/02/19 12/09/19 History Mcg = 1000 Iu)] Morphine Sulfate [Ms Contin] 15 mg PO Q12HR 09/02/19 12/09/19 History Cyanocobalamin (Vitamin B-12) 1,000 mcg PO DAILY 12/08/19 12/09/19 History [Vitamin B-12] Dicyclomine [Bentyl] 20 mg PO QID PRN 12/08/19 12/09/19 History Insulin Lispro [Insulin Lispro 10 units SQ AC-TID 12/08/19 12/09/19 History Kwikpen U-100] Insulin Lispro [Insulin Lispro 12 units SQ HS 12/08/19 12/09/19 History Kwikpen U-100] Lisinopril-Hctz 20-25 mg 0.5 tab PO HS 12/08/19 12/09/19 History [Zestoretic 20-25] Metoprolol Succinate [Toprol XL] 25 mg PO HS 12/08/19 12/09/19 History hydrOXYzine pamoate [hydrOXYzine 25 mg PO HS 12/08/19 12/09/19 History PAMOATE] Allergies Allergy/AdvReac Type Severity Reaction Status Date / Time tramadol HCl [From Ultram] Allergy Unknown Abdominal Verified 12/09/19 08:24 Pain, diarrhea, severe headache pregabalin [From Lyrica] AdvReac Unknown INCREASED Verified 12/09/19 08:24 DEPRESSION propoxyphene napsylate AdvReac Unknown LOSS OF Verified 12/09/19 08:24 [From [place]-N 100] COORDINATION ANTIDEPRESSANTS AdvReac STATES Uncoded 12/09/19 02:50 INCREASE DEPRESSION Physical Exam Vitals: Vital Signs Temp Pulse Resp BP Pulse Ox 12/11/19 07:00 98.2 F 82 18 122/73 99 12/11/19 00:51 99.1 F 91 16 154/85 99 12/10/19 19:32 97.9 F 96 18 151/73 95 12/10/19 14:47 98.7 F 110 H 18 128/78 98 Intake and Output 12/10/19 12/11/19 12/11/19 22:59 06:59 14:59 Intake Total 200 200 Balance 200 200 Intake: Oral 200 200 Other: Voiding Method Toilet Urinal # Voids 2 Results - Lab Results Most recent lab results Calcium 9.0 mg/dL (8.7-10.3) 12/11/19 06:07 12/11/19 06:07 12/11/19 06:07 Assessment and Plan Plan: Assessment: 1. Chronic kidney disease stage III with baseline creatinine in the range of 1.3-1.4. Etiology is nephrosclerosis. UA benign. No evidence of hydronephrosis noted on kidney ultrasound. 2. Left knee effusion status post aspiration on December 08. Maintain on antibiotics. 3. Hypertension with chronic kidney disease. Controlled. 4. Diabetes mellitus. 5. Right kidney lesion. This will need to be monitored outpatient. Plan: Hep-Lock IV fluids. Decrease lisinopril-hydrochlorothiazide to once daily. Add amlodipine. Avoid nephrotoxins. Follow-up cultures. Patient will need to follow up outpatient to establish CKD care. Thank you for the consultation. I will continue to follow the patient with you during his hospital stay.
[2019-12-11] MEDS ORDERED: VANCOMYCIN TROUGH DUE 1 EACH MISC MISCELLANE ONE (15:00)
[2019-12-11 16:38] LABS: Glucose,Whole Blood 127 mg/dL (75-99)
--- NOTE | 2019-12-11 17:07 | PN ---
PROGRESS NOTE DATE OF SERVICE: 12/11/2019 REASON FOR FOLLOWUP: Left knee pain, possible hemarthrosis with a question of possible cellulitis. INTERVAL HISTORY: The patient is currently afebrile. The patient is feeling better. Breathing comfortably. Overall pain, discomfort to the left knee decreased. No chest pain or cough. No abdominal pain or diarrhea history. Concern about his ultrasound of the kidney report. PHYSICAL EXAMINATION: Blood pressure 125/76, pulse of 82, temperature is 97.7, he is 99% on room air. General description is a middle-aged male, lying in bed in no distress. RESPIRATORY SYSTEM: Unlabored breathing, clear to auscultation anteriorly. HEART: S1, S2. Regular rate and rhythm. ABDOMEN: Soft, no tenderness. Left knee swelling decreased, no redness, no drainage. LABS: White count 9.9. Creatinine is currently 1.4. was slightly elevated to 0.22, though left knee culture so far negative. DIAGNOSTIC IMPRESSION AND PLAN: Patient with presentation to hospital with left knee pain in this patient who is status post left knee arthropathy on , clinically not behaving as a septic arthritis or cellulitis. The patient is covered with dapto to continue. Will wait for the culture to finalize. If negative, antibiotic can be safely discontinued. His questions and concerns were answered in layman's terms. MMODL / IJN: [id number] /
[2019-12-11 20:33] LABS: Glucose,Whole Blood 153 mg/dL (75-99)
--- NOTE | 2019-12-11 20:44 | P.PN ---
Progress Note - Text Progress Note Date: 12/11/19 - Chief Complaint Left knee pain swelling Interval history: This is a pleasant 59-year-old patient of Dr. Talya Palm. Chronic stable medical conditions include diabetes, fibromyalgia, hypertension, osteoarthritis, obstructive sleep apnea uses CPAP, diverticulosis, hiatal hernia, monoclonal gammopathy of undetermined significance,. 5 days ago patient underwent left knee arthroscopy for a miniscule tear. This was an outpatient procedure. Since returning home patient's pain in the left knee progressively became worse swelling local warmth. Patient also developed fever and chills. Decreased appetite tired rundown. Patient felt to be septic. Admitted with septic arthritis. Today-patient is improving patient cultures are pending. On IV daptomycin.. Review of systems: Was done for constitutional, cardiovascular, GI, pulmonary. relevant finding as above Active Medications Acetaminophen (Acetaminophen Tab 325 Mg Tab) 650 mg PO Q6HR PRN PRN Reason: Mild Pain or Fever > 100.5 Amlodipine Besylate (Amlodipine 5 Mg Tab) 5 mg PO DAILY [facility] Cholecalciferol (Cholecalciferol 1,000 Unit Tab) 2,000 unit PO DAILY [facility] Last Admin: 12/11/19 07:45 Dose: 2,000 unit Documented by: Cyanocobalamin (Cyanocobalamin 500 Mcg Tab) 1,000 mcg PO DAILY [facility] Last Admin: 12/11/19 07:45 Dose: 1,000 mcg Documented by: Cyclobenzaprine HCl (Cyclobenzaprine 10 Mg Tab) 10 mg PO TID PRN PRN Reason: Muscle Spasm Dicyclomine HCl (Dicyclomine 20 Mg Tab) 20 mg PO QID PRN PRN Reason: loose stools Enoxaparin Sodium (Enoxaparin 40 Mg/0.4 Ml Syringe) 40 mg SQ DAILY [facility] Last Admin: 12/11/19 07:45 Dose: 40 mg Documented by: Lisinopril/HCTZ (Lisinopril-Hctz 20-25 Mg 1 Each Tab) 1 each PO QAM [facility] Last Admin: 12/11/19 07:46 Dose: 1 each Documented by: Hydromorphone HCl (Hydromorphone 0.5 Mg/0.5 Ml Syringe) 0.5 mg IVP Q3HR PRN PRN Reason: Moderate Pain Last Admin: 12/11/19 12:55 Dose: 0.5 mg Documented by: Hydroxyzine Pamoate (Hydroxyzine Pamoate 25 Mg Cap) 25 mg PO [facility] Last Admin: 12/10/19 20:59 Dose: 25 mg Documented by: Daptomycin 500 mg/ Sodium (Chloride) 50 mls @ 100 mls/hr IVPB Q24H [facility]; Protocol Last Admin: 12/11/19 12:55 Dose: 100 mls/hr Documented by: Insulin Aspart (Insulin Aspart (Novolog) 100 Unit/Ml Vial) 10 unit SQ AC-TID [facility] Last Admin: 12/11/19 16:40 Dose: Not Given Documented by: Insulin Aspart (Insulin Aspart (Novolog) 100 Unit/Ml Vial) 12 unit SQ [facility] Last Admin: 12/10/19 21:03 Dose: Not Given Documented by: Insulin Aspart (Insulin Aspart (Novolog) 100 Unit/Ml Vial) 0 unit SQ ACHS [facility]; Protocol Last Admin: 12/11/19 16:40 Dose: Not Given Documented by: Insulin Detemir (Insulin Detemir (Levemir) 100 Unit/Ml Syr) 76 unit SQ [facility] Last Admin: 12/10/19 21:01 Dose: 76 unit Documented by: Metformin HCl (Metformin 500 Mg Tab) 2,000 mg PO [facility] Last Admin: 12/10/19 21:00 Dose: 2,000 mg Documented by: Metoprolol Succinate (Metoprolol Succinate (Er) 25 Mg Tab.Er.24h) 25 mg PO [facility] Last Admin: 12/10/19 20:59 Dose: 25 mg Documented by: Morphine Sulfate (Morphine Sulfate Er 15 Mg Tablet) 15 mg PO Q12HR [facility] Last Admin: 12/11/19 07:45 Dose: 15 mg Documented by: Naloxone HCl (Naloxone 0.4 Mg/Ml 1 Ml Vial) 0.2 mg IV Q2M PRN PRN Reason: Opioid Reversal Nystatin (Nystatin 100,000unit/Gm Cream 30 Gm Tube) 1 applic TOPICAL DAILY PRN PRN Reason: Skin Irritation Pantoprazole Sodium (Pantoprazole 40 Mg Tablet) 40 mg PO QAM [facility] Last Admin: 12/11/19 07:45 Dose: 40 mg Documented by: Triamcinolone Acetonide (Triamcinolone 0.1% Cream 80 Gm Tube) 1 applic TOPICAL DAILY PRN PRN Reason: Skin Irritation Physical examination: VITAL SIGNS: 98.2, 82, 18, 122 with 73, 99% on 2 L GENERAL: Laying in bed, comfortable EYES: Pupils equal. Conjunctiva normal. HEENT: External appearance of nose and ears normal, oral cavity grossly normal. NECK: JVD not raised; masses not palpable. HEART: First and second heart sounds are normal; no edema. LUNGS: Respiratory rate normal; clear to auscultation. ABDOMEN: Soft, nontender, liver spleen not palpable, no masses palpable. PSYCH: Alert and oriented x3; mood and affect normal. MUSCULAR skeletal: Swelling of the left knee with tenderness, local redness INVESTIGATIONS, reviewed in the clinical context: Creatinine 1.3 Previous testing White count 13.2 hemoglobin 11.9 platelets 214 potassium 4.6 bun 23 creatinine 1.38 Accu-Cheks 56, 73, 63 Assessment: -Suspect iatrogenic left knee septic arthritis following arthroscopic procedure -Sepsis from above -Chronic kidney disease stage III with baseline creatinine of 1.3-1.4 per nephrology likely nephrosclerosis. -Diabetes mellitus type 2, uncontrolled with hypoglycemia -Chronic fibromyalgia -Essential hypertension -Primary osteoarthritis -Obstructive sleep apnea uses CPAP -Chronic diverticulosis asymptomatic -Hiatal hernia -Monoclonal gammopathy of undetermined significance -Obesity BMI 35.6 Plan: Continue current medication treatment plan. Discussed with the patient. On daptomycin. Awaiting culture results.
[2019-12-11] MEDS: hydrOXYzine pamoate 25 MG CAP PO SCH (21:51)
[2019-12-11] MEDS: METOPROLOL SUCCINATE (ER) 25 MG TAB.ER.24H PO SCH (21:51)
[2019-12-11] MEDS ORDERED: INSULIN DETEMIR (LEVEMIR) 100 UNIT/ML SYR SQ SCH (22:00)
[2019-12-11] MEDS: metFORMIN 500 MG TAB PO SCH (22:28)
[2019-12-11] MEDS: INSULIN DETEMIR (LEVEMIR) 100 UNIT/ML SYR SQ SCH (22:47)
[2019-12-12] MEDS: HYDROmorphone 0.5 MG/0.5 ML SYRINGE IVP PRN ×2 (01:00→03:58)
[2019-12-12 07:01] LABS: Glucose,Whole Blood 144 mg/dL (75-99)
[2019-12-12] MEDS: INSULIN ASPART (NovoLOG) 100 UNIT/ML VIAL SQ SCH ×4 (07:26→12:09)
[2019-12-12] MEDS: CYANOCOBALAMIN 500 MCG TAB PO SCH (08:48)
[2019-12-12] MEDS: CHOLECALCIFEROL 1,000 UNIT TAB PO SCH (08:49)
[2019-12-12] MEDS: PANTOPRAZOLE 40 MG TABLET PO SCH (08:49)
[2019-12-12] MEDS: MORPHINE SULFATE ER 15 MG TABLET PO SCH (08:49)
[2019-12-12] MEDS: LISINOPRIL-HCTZ 20-25 MG 1 EACH TAB PO SCH (08:50)
[2019-12-12] MEDS: ENOXAPARIN 40 MG/0.4 ML SYRINGE SQ SCH (08:51)
[2019-12-12] MEDS ORDERED: amLODIPine 5 MG TAB PO SCH (09:00)
--- NOTE | 2019-12-12 11:10 | P.PN ---
Subjective patient is seen in follow-up for chronic kidney disease. It appears patient has chronic kidney disease stage III with baseline creatinine in the range of 1.3- 1.4 secondary to nephrosclerosis and chronic interstitial nephritis from long- term nonsteroidal use. blood pressure stable. Good urine output. No vomiting or diarrhea. Vital signs are stable. General: The patient appeared well nourished and normally developed. HEENT: Head exam is unremarkable. Neck is without jugular venous distension. LUNGS: Lungs are clear to auscultation and percussion. Breath sounds decreased. HEART: Rate and Rhythm are regular. ABDOMEN: soft, nontender. EXTREMITITES: No clubbing, cyanosis, or edema. Objective - Vital Signs Vital signs: Vital Signs Temp 98.3 F 12/12/19 07:19 Pulse 91 12/12/19 07:40 Resp 16 12/12/19 07:40 BP 148/93 12/12/19 07:19 Pulse Ox 96 12/12/19 07:19 Intake & Output 12/11/19 12/12/19 12/12/19 18:59 06:59 18:59 Intake Total 200 160 Balance 200 160 Intake: Intake, IV Titration 160 Amount Sodium Chloride 0.9% 1, 160 000 ml @ 130 mls/hr IV . Q7H42M [facility] Rx#:[id number] Oral 200 Other: Voiding Method Toilet Toilet Urinal Urinal # Voids 2 3 - Labs CBC & Chem 7: 12/11/19 06:07 12/11/19 06:07 Labs: Abnormal Lab Results - Last 24 Hours (Table) 12/11/19 12/11/19 12/11/19 Range/Units 11:19 16:34 20:31 POC Glucose (mg/dL) 131 H 127 H 153 H (75-99) mg/dL 12/12/19 Range/Units 06:57 POC Glucose (mg/dL) 144 H (75-99) mg/dL Microbiology - Last 24 Hours (Table) 12/09/19 03:05 Blood Culture - Preliminary Blood No Growth after 72 hours 12/09/19 11:50 Gram Stain - Preliminary Knee - Left Body Fluid Culture - Preliminary Assessment and Plan Plan: Assessment: 1. Chronic kidney disease stage III with baseline creatinine in the range of 1.3-1.4. Etiology is nephrosclerosis and chronic interstitial nephritis from long-term nonsteroidal use. UA benign. No evidence of hydronephrosis noted on kidney ultrasound. 2. Left knee effusion status post aspiration on December 08. Maintained on antibiotics. 3. Hypertension with chronic kidney disease. Controlled. 4. Diabetes mellitus. 5. Right kidney lesion. This will need to be monitored outpatient. Plan: remains off IV fluids. Encouraged oral intake. maintain current antihypertensives. Avoid nephrotoxins. Follow-up cultures. Patient will need to follow up outpatient to establish CKD care. morning labs pending.
[2019-12-12 11:39] LABS: Glucose,Whole Blood 64 mg/dL (75-99)
[2019-12-12 11:56] LABS: Glucose,Whole Blood 62 mg/dL (75-99)
[2019-12-12 11:57] LABS: Glucose,Whole Blood 57 mg/dL (75-99)
[2019-12-12 12:13] LABS: Glucose,Whole Blood 88 mg/dL (75-99)
[2019-12-12] MEDS: DAPTOmycin 500 MG in SODIUM CHLORIDE 0.9% 50 ML IVPB SCH (12:14)
[2019-12-12 12:31] LABS: African American GFR (CKD) 58.2 (60.0-200.0); Anion Gap 12.7 mmol/L (4.00-12.00); BUN/Creat Ratio 16.67 Ratio (12.00-20.00); Calcium 9.4 mg/dL (8.7-10.3); Carbon Dioxide 25.3 mmol/L (21.6-31.8); Magnesium 1.7 mg/dL (1.5-2.4); Non-African American GFR(CKD) 50.2 (60.0-200.0); Potassium 4.8 mmol/L (3.5-5.5)
[2019-12-12 14:29] LABS: Glucose,Whole Blood 143 mg/dL (75-99)
--- NOTE | 2019-12-12 14:56 | PN ---
PROGRESS NOTE DATE OF SERVICE: 12/12/2019 REASON FOR FOLLOWUP: Left knee pain, question of cellulitis. INTERVAL HISTORY: Patient is currently afebrile, patient is breathing comfortably. Denies having any chest pain. No shortness of breath. No nausea. No abdominal pain. Overall pain and discomfort to the left knee is decreased. PHYSICAL EXAMINATION: Blood pressure 156/96 pulse of 99, temperature 98.9, he is 98% on room air. General description is a middle-aged male, lying in bed in no distress. RESPIRATORY SYSTEM: Unlabored breathing, clear to auscultation anteriorly. HEART: S1, S2. Regular rate and rhythm. ABDOMEN: Soft, no tenderness. Left knee swelling has improved. LABS: Creatinine is 1.5. Blood culture negative. Left knee culture so far negative. DIAGNOSTIC IMPRESSION AND PLAN: Patient admitted to-hospital with left knee pain with concern for possible hemarthrosis. Cultures have been negative. He will transition to a short course of oral Keflex 500 mg t.i.d. for about a week and close outpatient followup. Discussed with the admitting physician. MMODL / IJN: [id number] /
[2019-12-12 15:03] VITALS: BP 128/79; PULSE 92; RESP 18; TEMP 98.3
--- NOTE | 2019-12-12 21:16 | P.DS ---
Providers Date of admission: 12/09/19 04:41 Expected date of discharge: 12/12/19 Attending physician: Emerson Delgadillo Consults: 12/09/19 04:42 Consult Physician Urgent Consulting Provider: Irvin Austin Consult Reason/Comments: medical management Do you want consulting provider notified?: Yes 12/10/19 12:40 Consult Physician Routine Consulting Provider: Marlo Hu Consult Reason/Comments: post op infection Do you want consulting provider notified?: Yes 12/11/19 11:58 Consult Physician Routine Consulting Provider: Shravan Mora Consult Reason/Comments: CKD Do you want consulting provider notified?: Yes Primary care physician: Jagdish [facility] Course: - Chief Complaint Left knee pain swelling Interval history: This is a pleasant 59-year-old patient of Dr. Talya Palm. Chronic stable medical conditions include diabetes, fibromyalgia, hypertension, osteoarthritis, obstructive sleep apnea uses CPAP, diverticulosis, hiatal hernia, monoclonal gammopathy of undetermined significance,. 5 days ago patient underwent left knee arthroscopy for a miniscule tear. This was an outpatient procedure. Since returning home patient's pain in the left knee progressively became worse swelling local warmth. Patient also developed fever and chills. Decreased appetite tired rundown. Patient felt to be septic. Admitted with septic arthritis. Today-doing well. No fever no chills. Cultures have been negative until now. Discussed with Dr. Mays from [place]. We will discharge her 7 days of Keflex. Patient to follow-up with nephrology and orthopedics. Consultation: Dr. Gruber from [place] Physical examination: VITAL SIGNS: 98.3, 92, 18, 128 with 79, 95% room air GENERAL: Sitting at the edge of the bed, EYES: Pupils equal. Conjunctiva normal. HEENT: External appearance of nose and ears normal, oral cavity grossly normal. NECK: JVD not raised; masses not palpable. HEART: First and second heart sounds are normal; no edema. LUNGS: Respiratory rate normal; clear to auscultation. ABDOMEN: Soft, nontender, liver spleen not palpable, no masses palpable. PSYCH: Alert and oriented x3; mood and affect normal. MUSCULAR skeletal: Swelling of the left knee with tenderness, local redness -all improved INVESTIGATIONS, reviewed in the clinical context: Creatinine 1.5 Previous testing White count 13.2 hemoglobin 11.9 platelets 214 potassium 4.6 bun 23 creatinine 1.38 Accu-Cheks 56, 73, 63 Assessment: -Suspect iatrogenic left knee septic arthritis following arthroscopic procedure- cultures came back all negative. -Sepsis from above -Chronic kidney disease stage III with baseline creatinine of 1.3-1.4 per nephrology likely nephrosclerosis. -Diabetes mellitus type 2, uncontrolled with hypoglycemia -Chronic fibromyalgia -Essential hypertension -Primary osteoarthritis -Obstructive sleep apnea uses CPAP -Chronic diverticulosis asymptomatic -Hiatal hernia -Monoclonal gammopathy of undetermined significance -Obesity BMI 35.6 Disposition: Home Patient Condition at Discharge: Good Plan - Discharge Summary New Discharge Prescriptions: New Cephalexin [Keflex] 500 mg PO Q8HR #21 cap Continue Lisinopril-Hctz 20-25 mg [Zestoretic 20-25] 1 tab PO QAM Cyclobenzaprine [Flexeril] 10 mg PO TID PRN PRN Reason: Muscle Spasm Nystatin 100,000Unit/gm Cream [Mycostatin Cream] 1 applic TOPICAL DAILY PRN PRN Reason: Skin Irritation Triamcinolone 0.1% Cream [Kenalog 0.1% Cream] 1 applic TOPICAL DAILY PRN PRN Reason: Skin Irritation Omeprazole 20 mg PO QAM Ergocalciferol [Vitamin D2 (DRISDOL)] 50,000 unit PO Q30D HYDROcodone/APAP 10-325MG [Willard 10-325] 1 tab PO Q6H PRN PRN Reason: break through pain Cholecalciferol [Vitamin D3 (25 Mcg = 1000 Iu)] 2,000 unit PO DAILY Morphine Sulfate [Ms Contin] 15 mg PO Q12HR Dicyclomine [Bentyl] 20 mg PO QID PRN PRN Reason: loose stools Metoprolol Succinate [Toprol XL] 25 mg PO HS Cyanocobalamin (Vitamin B-12) [Vitamin B-12] 1,000 mcg PO DAILY Insulin Lispro [Insulin Lispro Kwikpen U-100] 10 units SQ AC-TID Changed Insulin Glargine,Hum.rec.anlog [Basaglar Kwikpen U-100] 62 unit SQ HS #0 metFORMIN HCL [Glucophage] 1,000 mg PO BID #0 Discontinued hydrOXYzine pamoate [hydrOXYzine PAMOATE] 25 mg PO HS Insulin Lispro [Insulin Lispro Kwikpen U-100] 12 units SQ HS No Action Lisinopril-Hctz 20-25 mg [Zestoretic 20-25] 0.5 tab PO HS Discharge Medication List Lisinopril-Hctz 20-25 mg [Zestoretic 20-25] 1 tab PO QAM 09/22/13 [History] Cyclobenzaprine [Flexeril] 10 mg PO TID PRN 10/15/13 [History] Ergocalciferol [Vitamin D2 (DRISDOL)] 50,000 unit PO Q30D 12/12/16 [History] Nystatin 100,000Unit/gm Cream [Mycostatin Cream] 1 applic TOPICAL DAILY PRN 12/12/16 [History] Omeprazole 20 mg PO QAM 12/12/16 [History] Triamcinolone 0.1% Cream [Kenalog 0.1% Cream] 1 applic TOPICAL DAILY PRN 12/12/16 [History] HYDROcodone/APAP 10-325MG [Willard 10-325] 1 tab PO Q6H PRN 04/29/18 [History] Cholecalciferol [Vitamin D3 (25 Mcg = 1000 Iu)] 2,000 unit PO DAILY 09/02/19 [History] Morphine Sulfate [Ms Contin] 15 mg PO Q12HR 09/02/19 [History] Cyanocobalamin (Vitamin B-12) [Vitamin B-12] 1,000 mcg PO DAILY 12/08/19 [History] Dicyclomine [Bentyl] 20 mg PO QID PRN 12/08/19 [History] Insulin Lispro [Insulin Lispro Kwikpen U-100] 10 units SQ AC-TID 12/08/19 [History] Lisinopril-Hctz 20-25 mg [Zestoretic 20-25] 0.5 tab PO HS 12/08/19 [History] Metoprolol Succinate [Toprol XL] 25 mg PO HS 12/08/19 [History] Cephalexin [Keflex] 500 mg PO Q8HR #21 cap 12/12/19 [Rx] Insulin Glargine,Hum.rec.anlog [Basaglar Kwikpen U-100] 62 unit SQ HS #0 12/12/19 [Rx] metFORMIN HCL [Glucophage] 1,000 mg PO BID #0 12/12/19 [Rx] Follow up Appointment(s)/Referral(s): Ranjan Robison MD [STAFF PHYSICIAN] - 12/25/19 10:20 am (renal mass) Jagdish Palm DO [Primary Care Provider] - 12/16/19 3:30 pm Doc Andersen PAC [PHYSICIAN MATERIALS MANAGEMENT CLERK] - 12/26/19 1:30 pm Shravan Mora DO [STAFF PHYSICIAN] - 12/19/19 11:20 am (This appointment is a telehealth visit) Ambulatory/Diagnostic Orders: Basic Metabolic Panel [LAB.AMB] Time Frame: 12/17/19, Facility: [facility], Location: Laboratory Department Basic Metabolic Panel [LAB.AMB] Time Frame: 12/17/19, Facility: [facility], Location: [facility] Magnesium [LAB.AMB] Time Frame: 12/17/19, Facility: [facility], Location: [facility] Patient Instructions/Handouts: Hemarthrosis (DC) Activity/Diet/Wound Care/Special Instructions: Orthopedic discharge instructions: 1. Resume home medication 2. Ice and elevate often 3. Keep incisions covered and dry while showering 4. Plan for follow-up at [facility] in the next week 5. Please call office with any questions or concerns bmp - 5 days Discharge Disposition: HOME SELF-CARE
--- NOTE | 2019-12-15 08:12 | CDI ---
Documentation Clarification Form Date: 12/15/19 From: Megan Stevens CCS Phone: If you have a question about this query, please contact Britney Cronin, [employer] at [phone] between 8am and 5pm. Admit Date: 12/09/19 Discharge Date:12/12/19 Patient Name: Joseph Cavazos Visit Number: [id number] ATTENTION: The Clinical Documentation Specialists (CDI) and [facility] Coding Staff appreciate your assistance in clarifying documentation. Please respond to the clarification below the line at the bottom and electronically sign. The CDI & [facility] Coding staff will review the response and follow-up if needed. Please note: Queries are made part of the Legal Health Record. If you have any questions, please contact the author of this message via ITS. Dear Dr. Delgadillo, Conflicting documentation has been found in the medical record: DS documents: Suspect iatrogenic left knee septic arthritis following arthroscopic procedure-cultures came back all negative.-Sepsis from above Consult 12/08, PN 12/09-12/10 document: -Suspect iatrogenic left knee septic arthritis following arthroscopic procedure -Sepsis from above -Acute kidney injury could be from sepsis. ID Consult 12/09 documents: patient presented to hospital with left knee pain and swelling in this patient who is status post a second left knee arthroscopic more likely representing hemarthrosis Clinical not behaving as infection him this patient with no redness of the left knee and the fluid removed after arthrocentesis is mostly bloody and no significant elevated white count. In view of the overall low clinical suspicious for septic arthritis or postop infection antibiotic and be safely discontinued. Procedure note (aspiration) documents: Operative Findings: Right knee hemarthrosis History/Risk Factors: Joint effusion status post arthroscopy, CKD, HTN, DM, Obesity Clinical Indicators: Tachycardia, Temp 100.9, WBC 13.2, BIGG Vitals: Temp 100.9, MA 113, RR 20, BP 134/86, O2 Sat 98 Labs: WBC 13.2, 9.9- Lactic Acid 1.4 Microbiololgy: Gram Stain Final- Many polymorphonuclear leukocytes, no organism seen Blood Cx: No growth after 144 hours Treatment: Vancomycin 1,500 mg IVPB, Vancomycin 1,750 mg IVPB Procedure: Aspiration In your opinion, what is the most clinically appropriate diagnosis for this patient? Sepsis, cellulitis, septic arthritis-Post operative complication Sepsis, cellulitis, septic arthritis -Post operative not a complication Sepsis, cellulitis, septic arthritis ruled out Other explanation of clinical findings Unable to determine (no explanation for clinical findings) sepsis with posible cellulitis-post operative complication MTDD
== END 2019-12-12 16:43 | disposition home or self-care (01) ==
LOC: EC 02:41 → INTOOBSV 04:41 → 4SSUR 04:41 → UNDODISIN 12-12 16:43
PROVIDERS: ADMIT Hospitalist; ATTEND Hospitalist
DX: M25.061 Hemarthrosis, right knee (principal); N17.9 Acute kidney failure, unspecified; F32.9 Major depressive disorder, single episode, unspecified; N11.9 Chronic tubulo-interstitial nephritis, unspecified; E11.9 Type 2 diabetes mellitus without complications; M79.7 Fibromyalgia; H91.90 Unspecified hearing loss, unspecified ear; I10 Essential (primary) hypertension; M19.90 Unspecified osteoarthritis, unspecified site; G47.33 Obstructive sleep apnea (adult) (pediatric); Z99.89 Dependence on other enabling machines and devices; A41.9 Sepsis, unspecified organism; K44.9 Diaphragmatic hernia without obstruction or gangrene; K42.9 Umbilical hernia without obstruction or gangrene; K57.90 Diverticulosis of intestine, part unspecified, without perforation or abscess without bleeding; H93.19 Tinnitus, unspecified ear; R32 Unspecified urinary incontinence; D47.2 Monoclonal gammopathy; F41.9 Anxiety disorder, unspecified; I13.0 Hypertensive heart and chronic kidney disease with heart failure and stage 1 through stage 4 chronic kidney disease, or unspecified chronic kidney disease; E11.22 Type 2 diabetes mellitus with diabetic chronic kidney disease; N18.3 Chronic kidney disease, stage 3 (moderate); I50.9 Heart failure, unspecified; E11.649 Type 2 diabetes mellitus with hypoglycemia without coma; E66.9 Obesity, unspecified; Z68.35 Body mass index [BMI] 35.0-35.9, adult; Z82.49 Family history of ischemic heart disease and other diseases of the circulatory system; Z80.8 Family history of malignant neoplasm of other organs or systems; Z79.4 Long term (current) use of insulin; Z79.891 Long term (current) use of opiate analgesic; Z79.899 Other long term (current) drug therapy; Z88.5 Allergy status to narcotic agent; Z88.8 Allergy status to other drugs, medicaments and biological substances
CPT/HCPCS: 96376 ×4; 96361 ×4; 96366 ×3; 96367 ×2; 96365; 96375; 99284; 36415; 93005; 80053; 80048 ×2; 89050; 82565; 83605; 83735; 85025; 85027; 80202; 85610; 85730; 86140; 81003; 87040; 87070; 87205; 87075; 83036; 84145 ×2; 73560; 71046; 76770; 20610; G0378 ×4; J3370 ×2; J1650 ×3; J0692; J0878 ×3; J1170 ×5

== ENCOUNTER → 2020-01-06 | Outpatient (CLI) | payer OTHER ==
--- NOTE | 2020-01-06 14:47 | CT ---
EXAMINATION TYPE: CT abdomen wo con DATE OF EXAM: 01/06/2020 HISTORY: Renal mass, left side pain CT DLP: 718 mGycm. Automated Exposure Control for Dose Reduction was Utilized. TECHNIQUE: CT scan of the abdomen is performed without oral or IV contrast. COMPARISON: Renal ultrasound December 09, 2019 FINDINGS: Within the limitations of a non-contrast study, the following observations are made. LUNG BASES: No significant abnormality is appreciated. LIVER/GB: Liver is heterogeneously hypodense relative to spleen consistent with mild diffuse fatty in filtration. PANCREAS: No significant abnormality is seen. SPLEEN: No significant abnormality is seen. ADRENALS: No significant abnormality is seen. KIDNEYS: No left-sided nephrolithiasis. There are 3 right-sided renal calculi measuring up to 6 mm lo ng axis axial image 44. No concerning solid or cystic renal mass identified bilaterally on noncontras t study. Area of concern on recent ultrasound likely reflects lobulated cortex. Right kidney is sligh tly more superior contour positioning seen best on sagittal images. BOWEL: Few diverticula in the left and visualized proximal sigmoid colon. Normal primary appendix fro m cecum in the right lower quadrant. LYMPH NODES: No greater than 1cm abdominal lymph nodes are appreciated. OSSEOUS STRUCTURES: Gastrocolic scoliosis centered at L3 level. Multilevel spondylolisthesis and disc space narrowing in the upper to mid lumbar spine greatest at L2-L3 and L3-L4 levels. Facet arthropat hy lower lumbar levels. OTHER: There is a [place] ventral wall hernia containing fat partially imaged on axial image 62 in the lower abdomen/upper pelvis. IMPRESSION: No renal concerning renal mass on noncontrast CT. No hydronephrosis noted bilaterally. A few small nonobstructing right renal calculi. [place] ventral hernia midline lower abdomen/upper pe lvis partially imaged.
== END | disposition home or self-care (01) ==
LOC: RADCTMAIN 14:18
PROVIDERS: ATTEND Urology
DX: N20.0 Calculus of kidney (principal); D41.01 Neoplasm of uncertain behavior of right kidney; K43.9 Ventral hernia without obstruction or gangrene; Z91.09 Other allergy status, other than to drugs and biological substances; Z88.8 Allergy status to other drugs, medicaments and biological substances; Z88.5 Allergy status to narcotic agent
CPT/HCPCS: 74150

== ENCOUNTER → 2020-04-14 | Outpatient (CLI) | payer OTHER ==
[2020-04-14 14:06] LABS: Appearance,Urine Clear (Clear); Bilirubin,Urine Negative (Negative); Blood,Urine Negative (Negative); Color,Urine Colorless; Glucose,Urine (UA) Negative (Negative); Ketones,Urine Negative (Negative); Leukocyte Esterase,Urine Negative (Negative); Nitrite,Urine Negative (Negative); Protein,Urine Negative (Negative); Specific Gravity,Urine 1.004 (1.001-1.035); Urobilinogen,Urine <2.0 mg/dL (<2.0)
[2020-04-14 14:11] LABS: HCT 34.9 % (39.0-53.0); HGB 11.3 gm/dL (13.0-17.5); MCH 29.6 pg (25.0-35.0); MCHC 32.3 g/dL (31.0-37.0); MCV 91.6 fL (80.0-100.0); Mean Platelet Volume 8.2; Platelet Count 187 k/uL (150-450); RBC 3.81 m/uL (4.30-5.90); RDW 13.5 % (11.5-15.5)
[2020-04-14 20:27] LABS: Ferritin 56.4 ng/mL (22.0-322.0)
[2020-04-14 20:37] LABS: % Iron Saturation 7.77 (15.00-50.00); African American GFR (CKD) 75.7 (60.0-200.0); Albumin 4.5 g/dL (3.80-4.90); Albumin/Globulin Ratio 1.96 (1.60-3.17); Anion Gap 9.5 mmol/L (4.00-12.00); BUN/Creat Ratio 11.67 Ratio (12.00-20.00); Calcium 9.4 mg/dL (8.7-10.3); Carbon Dioxide 26.5 mmol/L (21.6-31.8); Globulin 2.3 g/dL (1.6-3.3); Magnesium 1.4 mg/dL (1.5-2.4); Non-African American GFR(CKD) 65.3 (60.0-200.0); Phosphorus 3.6 mg/dL (2.4-5.1); Potassium 4.2 mmol/L (3.5-5.5); Total Bilirubin 0.3 mg/dL (0.2-1.2); Total Protein 6.8 g/dL (6.2-8.2); Uric Acid 7.3 mg/dL (3.7-8.7)
== END | disposition home or self-care (01) ==
LOC: LABWHC1 12:09
PROVIDERS: ATTEND Nurse Practitioner Family
DX: N39.0 Urinary tract infection, site not specified (principal); N25.81 Secondary hyperparathyroidism of renal origin; E55.9 Vitamin D deficiency, unspecified; D63.1 Anemia in chronic kidney disease; N18.30 Chronic kidney disease, stage 3 unspecified; M10.9 Gout, unspecified
CPT/HCPCS: 36415; 80053; 81003; 82306; 82728; 83540; 83550; 83735; 83970; 84100; 84550; 85027

== ENCOUNTER 2020-06-28 02:24 | Observation (INO) | payer OTHER ==
--- NOTE | 2020-06-28 02:43 | ED ---
Chest Pain HPI - General Chief Complaint: Chest Pain Stated Complaint: Chest Pain Time Seen by Provider: 06/28/20 02:40 Source: patient Mode of arrival: wheelchair Limitations: physical limitation - History of Present Illness MD Complaint: chest pain Onset/Timin -: hour(s) Onset: during rest Pain Location: left chest Pain Radiation: none Severity: moderate Quality: other (Like I got hit by a baseball) Consistency: constant Improves With: nothing Worsens With: nothing Treatments Prior to Arrival: none - Related Data Home Medications Medication Instructions Recorded Confirmed Lisinopril-Hctz 20-25 mg 1 tab PO QAM 09/22/13 12/09/19 [Zestoretic 20-25] Cyclobenzaprine [Flexeril] 10 mg PO TID PRN 10/15/13 12/09/19 Ergocalciferol [Vitamin D2 50,000 unit PO Q30D 12/12/16 12/09/19 (DRISDOL)] Nystatin 100,000Unit/gm Cream 1 applic TOPICAL DAILY PRN 12/12/16 12/09/19 [Mycostatin Cream] Omeprazole 20 mg PO QAM 12/12/16 12/09/19 Triamcinolone 0.1% Cream [Kenalog 1 applic TOPICAL DAILY PRN 12/12/16 12/09/19 0.1% Cream] HYDROcodone/APAP 10-325MG [Olga 1 tab PO Q6H PRN 04/29/18 12/09/19 10-325] Cholecalciferol [Vitamin D3 (25 2,000 unit PO DAILY 09/02/19 12/09/19 Mcg = 1000 Iu)] Morphine Sulfate [Ms Contin] 15 mg PO Q12HR 09/02/19 12/09/19 Cyanocobalamin (Vitamin B-12) 1,000 mcg PO DAILY 12/08/19 12/09/19 [Vitamin B-12] Dicyclomine [Bentyl] 20 mg PO QID PRN 12/08/19 12/09/19 Insulin Lispro [Insulin Lispro 10 units SQ AC-TID 12/08/19 12/09/19 Kwikpen U-100] Lisinopril-Hctz 20-25 mg 0.5 tab PO HS 12/08/19 12/09/19 [Zestoretic 20-25] Metoprolol Succinate [Toprol XL] 25 mg PO HS 12/08/19 12/09/19 Previous Rx's Medication Instructions Recorded Cephalexin [Keflex] 500 mg PO Q8HR #21 cap 12/12/19 Insulin Glargine,Hum.rec.anlog 62 unit SQ HS #0 12/12/19 [Basaglar Kwikpen U-100] metFORMIN HCL [Glucophage] 1,000 mg PO BID #0 12/12/19 Allergies Allergy/AdvReac Type Severity Reaction Status Date / Time tramadol HCl [From Ultram] Allergy Unknown Abdominal Verified 06/28/20 02:29 Pain, diarrhea, severe headache pregabalin [From Lyrica] AdvReac Unknown INCREASED Verified 06/28/20 02:29 DEPRESSION propoxyphene napsylate AdvReac Unknown LOSS OF Verified 06/28/20 02:29 [From Darvocet-N 100] COORDINATION ANTIDEPRESSANTS AdvReac STATES Uncoded 06/28/20 02:29 INCREASE DEPRESSION Review of Systems ROS Statement: Those systems with pertinent positive or pertinent negative responses have been documented in the HPI. ROS Other: All systems not noted in ROS Statement are negative. Constitutional: Denies: fever, chills Respiratory: Denies: cough, dyspnea Cardiovascular: Reports: chest pain. Denies: palpitations, dyspnea on exertion, edema, syncope Gastrointestinal: Denies: abdominal pain, nausea, vomiting Genitourinary: Denies: dysuria, hematuria Musculoskeletal: Denies: back pain Skin: Denies: rash Neurological: Denies: headache, weakness, numbness EKG Findings - EKG Results: EKG: interpreted by ERMD, sinus rhythm (With frequent PVCs), normal axis, normal QRS, normal ST/T EKG shows: tachycardia (Rate 104 bpm) Past Medical History Past Medical History: Blood Disorder, Chest Pain / Angina, Diabetes Mellitus, Fibromyalgia, Hearing Disorder / Deafness, Hypertension, Musculoskeletal Disorder, Osteoarthritis (OA), Skin Disorder, Sleep Apnea/CPAP/BIPAP Additional Past Medical History / Comment(s): MIGRAINES, DIVERTICULOSIS, HIATAL HERNIA, umbilical hernia, ATHLETES FOOT, RINGING IN EARS, DDD, yeast rash in armpits and groins, occ. urinary incontinence, Monoclonal Gammapathy of Undetermined Significance(MGUS). Hx cellulitis. Has cpap machine. Recent increased lower back pain. History of Any Multi-Drug Resistant Organisms: None Reported Past Surgical History: Orthopedic Surgery Additional Past Surgical History / Comment(s): RIGHT ROTATOR CUFF, CARPAL TUNNEL, BILATERAL INGUINAL HERNIA REPAIRS, ARTHROSCOPY BILATERAL KNEES, RIGHT ELBOW CUBITAL ULNAR SURGERY, PREVIOUS PAIN CLINIC PROCEDURES. Past Anesthesia/Blood Transfusion Reactions: Previous Problems w/ Anesthesia, Family History of Problems w/ Anesthesia Additional Past Anesthesia/Blood Transfusion Reaction / Comment(s): STATES HE NEEDED MORE ANESTHESIA, " I have a high tolerance". Mother experienced memory issues after anesthesia "for a couple weeks". Past Psychological History: Anxiety, Depression Smoking Status: Never smoker Past Alcohol Use History: None Reported Past Drug Use History: None Reported - Past Family History Mother Family Medical History: Deep Vein Thrombosis (DVT) Additional Family Medical History / Comment(s): Precancerous cells - uterine. Sister(s) Family Medical History: Cancer Additional Family Medical History / Comment(s): Skin Cancer. General Exam Limitations: physical limitation General appearance: alert, in no apparent distress Head exam: Present: atraumatic, normocephalic Eye exam: Present: normal appearance. Absent: scleral icterus, conjunctival injection Neck exam: Present: normal inspection Respiratory exam: Present: normal lung sounds bilaterally. Absent: respiratory distress, wheezes, rales, rhonchi, stridor Cardiovascular Exam: Present: normal rhythm, tachycardia, systolic murmur. Absent: diastolic murmur, rubs, gallop GI/Abdominal exam: Present: soft, hernia (Large umbilical hernia, nontender. Diastasis.). Absent: distended, tenderness, guarding, rebound, rigid Extremities exam: Present: normal inspection, normal capillary refill. Absent: pedal edema, calf tenderness Back exam: Present: normal inspection Neurological exam: Present: alert Skin exam: Present: warm, dry, intact, normal color. Absent: rash Course Vital Signs 06/28/20 02:26 Temperature 97.7 F Pulse Rate 114 H Respiratory 22 Rate Blood Pressure 146/69 O2 Sat by Pulse 95 Oximetry Disposition Referrals: Jagdish Palm DO [Primary Care Provider] - 1-2 days
[2020-06-28 03:14] LABS: Basophils # (A) 0.1 k/uL (0-0.2); Basophils % (A) 1 %; Eosinophils # (A) 0.1 k/uL (0-0.7); Eosinophils % (A) 2 %; HCT 37.2 % (39.0-53.0); HGB 11.9 gm/dL (13.0-17.5); Lymphocytes # (A) 2.1 k/uL (1.0-4.8); Lymphocytes % (A) 27 %; MCH 28.5 pg (25.0-35.0); MCHC 32.1 g/dL (31.0-37.0); Mean Platelet Volume 8.1; Monocytes # (A) 0.4 k/uL (0-1.0); Monocytes % (A) 5 %; Neutrophils # (A) 4.8 k/uL (1.3-7.7); Neutrophils % (A) 62 %; Platelet Count 246 k/uL (150-450); RBC 4.18 m/uL (4.30-5.90); RDW 14.5 % (11.5-15.5); WBC 7.8 k/uL (3.8-10.6)
--- NOTE | 2020-06-28 03:19 | XR ---
EXAM: XR Chest, 1 View CLINICAL HISTORY: chest pain TECHNIQUE: Frontal view of the chest. COMPARISON: 12/09/19 FINDINGS: Lungs: Unremarkable. No consolidation. Pleural space: Unremarkable. No pneumothorax. Mediastinum: Unremarkable. Bones/joints: No acute findings IMPRESSION: No acute findings or substantial change
[2020-06-28 03:23] LABS: Albumin 4.2 g/dL (3.5-5.0); Calcium 9.4 mg/dL (8.4-10.2); Magnesium 1.7 mg/dL (1.6-2.3); Potassium 4.2 mmol/L (3.5-5.1); Total Bilirubin 0.3 mg/dL (0.2-1.3); Total Protein 7.3 g/dL (6.3-8.2)
[2020-06-28 03:24] LABS: INR 0.9 (<1.2); Partial Thromboplastin Time 24.6 sec (22.0-30.0); Prothrombin Time 9.8 sec (9.0-12.0)
[2020-06-28] MEDS ORDERED: MORPHINE SULFATE 4 MG/ML SYRINGE IV STA (04:06)
[2020-06-28] MEDS ORDERED: INSULIN REGULAR 100 UNIT/ML VIAL SQ STA (04:06)
[2020-06-28] MEDS ORDERED: NITROGLYCERIN SL TABS 0.4 MG TAB SUBLINGUAL PRN (05:43)
[2020-06-28] MEDS ORDERED: CYCLOBENZAPRINE 10 MG TAB PO PRN (05:44)
[2020-06-28] MEDS ORDERED: DICYCLOMINE 20 MG TAB PO PRN (05:44)
[2020-06-28] MEDS: SODIUM CHLORIDE 0.9% 1,000 ML IV SCH ×2 (06:56→17:43)
[2020-06-28] MEDS: CYANOCOBALAMIN 500 MCG TAB PO SCH (08:36)
[2020-06-28] MEDS: metFORMIN 500 MG TAB PO SCH ×3 (08:36→20:50)
[2020-06-28] MEDS: CHOLECALCIFEROL 25 MCG (1000 IU) TABLET PO SCH (08:36)
[2020-06-28] MEDS: PANTOPRAZOLE 40 MG TABLET PO SCH (08:36)
[2020-06-28] MEDS: INSULIN ASPART (NovoLOG) 100 UNIT/ML VIAL SQ SCH ×6 (08:37→20:51)
[2020-06-28] MEDS: MORPHINE SULFATE ER 15 MG TABLET PO SCH ×2 (08:43→20:50)
[2020-06-28 09:11] LABS: Glucose,Whole Blood 82 mg/dL (75-99)
[2020-06-28] MEDS: LISINOPRIL-HCTZ 20-25 MG 1 EACH TAB PO SCH (09:13)
[2020-06-28] MEDS ORDERED: TRIAMCINOLONE 0.1% CREAM 80 GM TUBE TOPICAL PRN (10:23)
--- NOTE | 2020-06-28 10:51 | CONS ---
CONSULTATION CHIEF COMPLAINT: Chest pain. Joseph is a 60-year-old gentleman with history of fibromyalgia, insulin-requiring diabetes, hypertension, who presented to hospital complaining of chest pain. His chest discomfort is sharp, precordial, gets worse with deep inspiration. At the time of my evaluation, he appears comfortable at rest and is free of symptoms. An EKG showed sinus rhythm with PVCs. Troponins are negative. Coronavirus test is negative. He had a chest x-ray in that was unremarkable. His last stress test was in 2018. PAST MEDICAL HISTORY: Significant for hypertension, diabetes, dyslipidemia. The patient is currently disabled. MEDICATIONS: Medications at home include omeprazole, magnesium, Zestoretic, insulin, Flomax, Glucophage, Toprol, MS Contin, iron, Flexeril. ALLERGIES: The patient is allergic to LYRICA, ULTRAM, DARVOCET, and ANTIDEPRESSANT. FAMILY HISTORY: Negative for premature coronary artery disease. SOCIAL HISTORY: Negative for current smoking, EtOH abuse, or drug abuse. REVIEW OF SYSTEMS: HEENT is unremarkable. CARDIAC: As described above. RESPIRATORY: As described above. GI: Negative. GENITOURINARY: Negative. ALLERGY/IMMUNOLOGY: Negative. SKIN: Negative. MUSCULOSKELETAL: Significant for arthritis. PSYCHOSOCIAL: Negative. ENDOCRINE: Negative. DERM: Negative. CONSTITUTIONAL: Negative. ONCOLOGICAL: Negative. MODELING ANALYST: Negative. Rest of the systems review is not relevant. PHYSICAL EXAMINATION: He is comfortable at rest. Vital signs are stable. Chest exam reveals diminished air entry at the bases. Heart exam reveals first and second heart sounds. No gallop. Abdomen is soft. Examination of extremities did not reveal mild edema. Peripheral pulses are felt. LABS: Labs show that hemoglobin is 11.9, platelet count is 240, potassium is 4.2. Creatinine is 1.1. Troponins are negative. Coronavirus test is negative. ASSESSMENT: 1. Precordial chest pain sharp atypical. 2. History of diabetes. 3. History of hypertension. 4. History of fibromyalgia. PLAN: I will obtain a D-dimer on him to rule out pulmonary embolism. Obtain a 2D echo and schedule him for a dobutamine stress echo. MMODL / IJN: [id number] /
[2020-06-28 12:39] LABS: Glucose,Whole Blood 70 mg/dL (75-99)
[2020-06-28] MEDS: HYDROcodone/APAP 10-325MG 1 EACH TAB PO PRN (14:58)
--- NOTE | 2020-06-28 17:01 | ECHOF ---
Referral Reason:Lv function, chest pain MEASUREMENTS -------- HEIGHT: 165.1 cm WEIGHT: 98.9 kg BP: 140/72 IVSd: 1.3 cm (0.6 - 1.1) LVIDd: 4.3 cm (3.9 - 5.3) LVPWd: 1.4 cm (0.6 - 1.1) EDV(Teich): 85 ml IVSs: 2.0 cm LVIDs: 3.1 cm LVPWs: 1.7 cm %IVS Thck: 51 % ESV(Teich): 39 ml EF(Teich): 54 % %FS: 28 % SV(Teich): 46 ml LA Diam: 3.1 cm (2.7 - 3.8) RVIDd: 3.1 cm (< 3.3) Ao Diam: 3.1 cm (2.0 - 3.7) AV Cusp: 1.9 cm (1.5 - 2.6) EPSS: 0.7 cm MV E Humberto: 0.71 m/s MV DecT: 211 ms MV Dec Luce: 3.4 m/s MV A Humberto: 0.96 m/s MV E/A Ratio: 0.74 MV PHT: 61 ms AV Vmax: 1.49 m/s AV maxP.89 mmHg TR Vmax: 2.21 m/s TR maxP.48 mmHg RAP: 5.00 mmHg RVSP: 24.48 mmHg MV EF SLOPE: 65.82 mm/s (70 - 150) MV EXCURSION: 14.58 mm (> 18.000) FINDINGS -------- Sinus rhythm. This was a technically adequate study. The left ventricular size is normal. There is moderate concentric left ventricular hypertrophy. O verall left ventricular systolic function is normal with, an EF between 60 - 65 %. The right ventricle is normal in size. The left atrium is normal in size. The right atrium is normal in size. Interatrial and interventricular septum intact. There is mild aortic valve sclerosis. Mild mitral annular calcification present. Mild tricuspid regurgitation present. Right ventricular systolic pressure is normal at < 35 mmHg. Trace/mild (physiologic) pulmonic regurgitation. The aortic root size is normal. Normal inferior vena cava with normal inspiratory collapse consistent with estimated right atrial pre ssure of 5 mmHg. There is no pericardial effusion. CONCLUSIONS -------- 1. The left ventricular size is normal. 2. There is moderate concentric left ventricular hypertrophy. 3. Overall left ventricular systolic function is normal with, an EF between 60 - 65 %. 4. There is mild aortic valve sclerosis. 5. Mild mitral annular calcification present. 6. Mild tricuspid regurgitation present. 7. Trace/mild (physiologic) pulmonic regurgitation. 8. There is no pericardial effusion. VERIFICATION REP: Radha Ross RDCS
[2020-06-28 17:19] LABS: Glucose,Whole Blood 189 mg/dL (75-99)
--- NOTE | 2020-06-28 19:33 | P.HPIM ---
History of Present Illness H&P Date: 06/28/20 Chief Complaint: Chest pain History of presenting complaint This is a pleasant 60-year-old patient of Dr. Talya Palm. Chronic stable medical conditions include diabetes, fibromyalgia, hypertension, osteoarthritis, obstructive sleep apnea uses CPAP, diverticulosis, hiatal hernia, monoclonal gammopathy of undetermined significance,. Patient yesterday started with central sharp chest pain. He woke up with the same. It is present mode of yesterday. It was worse with a deep breath. It is not really reproducible. Don't radiate. No dizziness or lightheadedness. No fever no chills. No cough. It seems to progress over yesterday. Has decided to come in. Review of systems: GEN.: None EYES: None HEENT: None NECK: None RESPIRATORY: As above CARDIOVASCULAR: As above GASTROINTESTINAL: None GENITOURINARY: None MUSCULOSKELETAL: [As above LYMPHATICS: None HEMATOLOGICAL: None PSYCHIATRY: None NEUROLOGICAL: None Past medical history to include: Diabetes, fibromyalgia, hard of hearing, hypertension, osteoarthritis, obstructive sleep apnea uses CPAP, diverticulosis, hiatal hernia, umbilical hernia, monoclonal gammopathy of undetermined significance, anxiety depression Social history: Patient has a both cane and a walker. Lives with his sister. Does not smoke or drink alcohol. Physical examination: VITAL SIGNS: 97.4, 93, 20, 140/72, 99% on 2 L GENERAL: BMI 36.3, sitting up on bed EYES: Pupils equal. Conjunctiva normal. HEENT: External appearance of nose and ears normal, oral cavity grossly normal. NECK: JVD not raised; masses not palpable. HEART: First and second heart sounds are normal; no edema. LUNGS: Respiratory rate normal; clear to auscultation. ABDOMEN: Soft, nontender, liver spleen not palpable, no masses palpable. PSYCH: Alert and oriented x3; mood and affect normal. MUSCULAR skeletal: Swelling of the left knee with tenderness, local redness NEUROLOGICAL: Cranial nerves grossly intact; no facial asymmetry, power and sensation grossly intact. LYMPHATICS: No lymph nodes palpable in the axilla and neck INVESTIGATIONS, reviewed in the clinical context: WBC 7.8 hemoglobin 11.9 platelets 246 potassium 4.2 creatinine 1.11 blood glucose 246 Coronavirus [PCR]-not detected EKG tracing personally reviewed by me-normal sinus rhythm. PVCs Chest x-ray film personally reviewed by me-/portable: Unremarkable 2-D echocardiogram course: Moderate concentric LVH. EF 60-65% Assessment: -Left anterior chest wall pain. Localized. Sharp. Nonreproducible. No Associates symptoms. Most likely viral pleurisy. Cardiology was consulted to rule out a cardiac component. -Chronic kidney disease stage III with baseline creatinine of 1.3-1.4 per nephrology likely nephrosclerosis. Follow BMP -Diabetes mellitus type 2, Continue with metformin and insulin. Follow Accu-Cheks -Chronic fibromyalgia Pain control as needed -Essential hypertension Continue Toprol-XL, Zestoretic -Primary osteoarthritis Pain control as needed -Obstructive sleep apnea uses CPAP -Chronic diverticulosis asymptomatic -Hiatal hernia -Monoclonal gammopathy of undetermined significance -Obesity BMI 36.3 Weight loss measures and follow with PCP for follow-up Cardiology was consulted. They ordered a 2-D echocardiogram and a stress test. Care was discussed with the patient. Questions answered. Patient placed in observation Past Medical History Past Medical History: Blood Disorder, Chest Pain / Angina, Diabetes Mellitus, Fibromyalgia, Hearing Disorder / Deafness, Hypertension, Musculoskeletal Disorder, Osteoarthritis (OA), Skin Disorder, Sleep Apnea/CPAP/BIPAP Additional Past Medical History / Comment(s): MIGRAINES, DIVERTICULOSIS, HIATAL HERNIA, umbilical hernia, ATHLETES FOOT, RINGING IN EARS, DDD, yeast rash in armpits and groins, occ. urinary incontinence, Monoclonal Gammapathy of Undetermined Significance(MGUS). Hx cellulitis. Has cpap machine. Recent in creased lower back pain. History of Any Multi-Drug Resistant Organisms: None Reported Past Surgical History: Orthopedic Surgery Additional Past Surgical History / Comment(s): RIGHT ROTATOR CUFF, CARPAL TUNNEL, BILATERAL INGUINAL HERNIA REPAIRS, ARTHROSCOPY BILATERAL KNEES, RIGHT ELBOW CUBITAL ULNAR SURGERY, PREVIOUS PAIN CLINIC PROCEDURES. Past Anesthesia/Blood Transfusion Reactions: Previous Problems w/ Anesthesia, Family History of Problems w/ Anesthesia Additional Past Anesthesia/Blood Transfusion Reaction / Comment(s): STATES HE NEEDED MORE ANESTHESIA, " I have a high tolerance". Mother experienced memory issues after anesthesia "for a couple weeks". Past Psychological History: Anxiety, Depression Smoking Status: Never smoker Past Alcohol Use History: None Reported Past Drug Use History: None Reported - Past Family History Mother Family Medical History: Deep Vein Thrombosis (DVT) Additional Family Medical History / Comment(s): Precancerous cells - uterine. Sister(s) Family Medical History: Cancer Additional Family Medical History / Comment(s): Skin Cancer. Father Family Medical History: Diabetes Mellitus Additional Family Medical History / Comment(s): Diverticular disease. Medications and Allergies Home Medications Medication Instructions Recorded Confirmed Type Lisinopril-Hctz 20-25 mg 1 tab PO QAM 09/22/13 06/28/20 History [Zestoretic 20-25] Cyclobenzaprine [Flexeril] 10 mg PO TID PRN 10/15/13 06/28/20 History Ergocalciferol [Vitamin D2 50,000 unit PO Q30D 12/12/16 06/28/20 History (DRISDOL)] Nystatin 100,000Unit/gm Cream 1 applic TOPICAL BID PRN 12/12/16 06/28/20 History [Mycostatin Cream] Omeprazole 20 mg PO QAM 12/12/16 06/28/20 History Triamcinolone 0.1% Cream [Kenalog 1 applic TOPICAL BID PRN 12/12/16 06/28/20 History 0.1% Cream] HYDROcodone/APAP 10-325MG [[place] 1 tab PO BID PRN 04/29/18 06/28/20 History 10-325] Morphine Sulfate [Ms Contin] 15 mg PO Q12HR 09/02/19 06/28/20 History Insulin Lispro [Insulin Lispro 10 units SQ AC-TID 12/08/19 06/28/20 History Kwikpen U-100] Lisinopril-Hctz 20-25 mg 0.5 tab PO HS PRN 12/08/19 06/28/20 History [Zestoretic 20-25] Metoprolol Succinate [Toprol XL] 25 mg PO HS 12/08/19 06/28/20 History Cholecalciferol [Vitamin D3 (25 50 mcg PO DAILY 06/28/20 06/28/20 History Mcg = 1000 Iu)] Clotrimazole Cream [Lotrimin Cream] 1 applic TOPICAL BID 06/28/20 06/28/20 History Ferrous Sulfate [Feosol] 325 mg PO DAILY 06/28/20 06/28/20 History Insulin Glargine,Hum.rec.anlog 90 unit SQ HS 06/28/20 06/28/20 History [Lantus Solostar] Insulin Lispro [humaLOG Kwikpen] 12 unit SQ HS 06/28/20 06/28/20 History Magnesium 250 mg PO DAILY 06/28/20 06/28/20 History Tamsulosin HCl [Flomax] 0.4 mg PO HS 06/28/20 06/28/20 History metFORMIN HCL ER [Glucophage Xr] 500 mg PO ACHS 06/28/20 06/28/20 History Allergies Allergy/AdvReac Type Severity Reaction Status Date / Time tramadol HCl [From Ultram] Allergy Unknown Abdominal Verified 06/28/20 08:02 Pain, diarrhea, severe headache pregabalin [From Lyrica] AdvReac Unknown INCREASED Verified 06/28/20 08:02 DEPRESSION propoxyphene napsylate AdvReac Unknown LOSS OF Verified 06/28/20 08:02 [From Romaint-N 100] COORDINATION ANTIDEPRESSANTS AdvReac STATES Uncoded 06/28/20 08:02 INCREASE DEPRESSION Physical Exam Vitals: Vital Signs Temp Pulse Resp BP Pulse Ox 06/28/20 07:59 97.8 F 93 18 140/72 99 06/28/20 07:01 97.4 F L 93 20 119/75 98 06/28/20 04:42 98 20 136/68 100 06/28/20 02:26 97.7 F 114 H 22 146/69 95 Intake and Output 06/27/20 06/28/20 06/28/20 22:59 06:59 14:59 Other: Weight 98.883 kg Results CBC & Chem 7: 06/28/20 03:04 06/28/20 03:04 Labs: Abnormal Lab Results - Last 24 Hours (Table) 06/28/20 06/28/20 Range/Units 03:04 03:04 RBC 4.18 L (4.30-5.90) m/uL Hgb 11.9 L (13.0-17.5) gm/dL Hct 37.2 L (39.0-53.0) % Sodium 133 L (137-145) mmol/L Chloride 97 L (98-107) mmol/L BUN 21 H (9-20) mg/dL Glucose 246 H (74-99) mg/dL
[2020-06-28 20:41] LABS: Glucose,Whole Blood 179 mg/dL (75-99)
[2020-06-28] MEDS: CLOTRIMAZOLE 1% CREAM 30 GM TUBE TOPICAL SCH (20:51)
[2020-06-28] MEDS ORDERED: TAMSULOSIN 0.4 MG CAP.ER.24H PO SCH (21:00)
[2020-06-28] MEDS ORDERED: INSULIN DETEMIR (LEVEMIR) 100 UNIT/ML SYR SQ SCH ×2 (21:00)
[2020-06-28] MEDS ORDERED: METOPROLOL SUCCINATE (ER) 25 MG TAB.ER.24H PO SCH (21:00)
[2020-06-28] MEDS ORDERED: LISINOPRIL-HCTZ 20-25 MG 1 EACH TAB PO SCH (21:00)
[2020-06-29] MEDS: HYDROcodone/APAP 10-325MG 1 EACH TAB PO PRN (00:37)
[2020-06-29] MEDS: SODIUM CHLORIDE 0.9% 1,000 ML IV SCH (00:38)
[2020-06-29 07:37] LABS: Glucose,Whole Blood 127 mg/dL (75-99)
[2020-06-29] MEDS ORDERED: FERROUS SULFATE 325 MG TAB PO SCH (09:00)
[2020-06-29] MEDS ORDERED: ASPIRIN 81 MG PO SCH (09:00)
[2020-06-29] MEDS ORDERED: ASPIRIN 325 MG TAB PO SCH (09:00)
[2020-06-29] MEDS ORDERED: DOBUTamine DRIP for NUC MED 500 MG in DEXTROSE/WATER 1 250ML.BAG IV PRN (09:00)
[2020-06-29] MEDS ORDERED: MAGNESIUM OXIDE 400 MG TAB PO SCH (09:00)
[2020-06-29] MEDS: CYANOCOBALAMIN 500 MCG TAB PO SCH (09:12)
[2020-06-29] MEDS: PANTOPRAZOLE 40 MG TABLET PO SCH (09:14)
[2020-06-29] MEDS: MORPHINE SULFATE ER 15 MG TABLET PO SCH (09:14)
[2020-06-29] MEDS: CHOLECALCIFEROL 25 MCG (1000 IU) TABLET PO SCH (09:14)
[2020-06-29] MEDS: metFORMIN 500 MG TAB PO SCH (09:14)
[2020-06-29] MEDS: INSULIN ASPART (NovoLOG) 100 UNIT/ML VIAL SQ SCH ×4 (11:13→16:26)
[2020-06-29] MEDS: CLOTRIMAZOLE 1% CREAM 30 GM TUBE TOPICAL SCH (11:14)
--- NOTE | 2020-06-29 11:14 | P.PN ---
Subjective This is a pleasant 60-year-old male past medical history significant for diabetes mellitus, dyslipidemia and hypertension. Echocardiogram obtained reveals preserved LV systolic function with ejection fraction 60-65%. Laboratory data reviewed, troponin negative 3, d-dimer 0.4. Blood pressure 130/75 heart rate 82 afebrile maintaining oxygen saturation on nasal cannula. Currently maintained on aspirin 325 mg daily, lisinopril hydrochlorothiazide 20/25 mg in the morning and 10/12.5 mg at bedtime and Toprol 25 mg daily. GENERAL: Well-appearing, well-nourished and in no acute distress. NECK: Supple without JVD or thyromegaly. LUNGS: Breath sounds clear to auscultation bilaterally. Respiration equal and unlabored. No wheezes, rales or rhonchi. HEART: Regular rate and rhythm without murmurs, rubs or gallops. S1 and S2 heard. EXTREMITIES: Normal range of motion, no edema. No clubbing or cyanosis. Peripheral pulses intact. ASSESSMENT Chest pain, atypical Diabetes mellitus Dyslipidemia Hypertension Fibromyalgia PLAN Proceed with dobutamine stress echo to assess for stress induced ischemia. If normal he can be discharged home from a cardiac perspective. Nurse Practitioner note has been reviewed, I agree with a documented findings and plan of care. Patient was seen and examined. Objective - Vital Signs Vital signs: Vital Signs Temp 98.0 F 06/29/20 02:00 Pulse 82 06/29/20 02:00 Resp 17 06/29/20 02:00 BP 130/75 06/29/20 02:00 Pulse Ox 97 06/29/20 02:00 Intake & Output 06/28/20 06/29/20 06/29/20 18:59 06:59 18:59 Weight 98.883 kg Other: Voiding Method Toilet # Voids 2 2 - Labs CBC & Chem 7: 06/28/20 03:04 06/28/20 03:04 Labs: Abnormal Lab Results - Last 24 Hours (Table) 06/28/20 06/28/20 06/28/20 Range/Units 12:37 17:12 20:39 POC Glucose (mg/dL) 70 L 189 H 179 H (75-99) mg/dL 06/29/20 Range/Units 07:35 POC Glucose (mg/dL) 127 H (75-99) mg/dL
[2020-06-29] MEDS: LISINOPRIL-HCTZ 20-25 MG 1 EACH TAB PO SCH (11:15)
[2020-06-29 11:18] VITALS: PULSE 98
--- NOTE | 2020-06-29 12:43 | ECHOS ---
STRESS ECHOCARDIOGRAM LUMASON VIAL: INDICATIONS: Chest pain. MEDICATIONS: BASELINE HEART RATE: 82 BASELINE BLOOD PRESSURE: 88/60 MAXIMUM HEART RATE: 144 MAXIMUM BLOOD PRESSURE: 156/67 85% MPHR: 136 100% MPHR: 160 METS: @@ MAXIMUM STAGE REACHED: IV TOTAL EXERCISE TIME: 10:10 CLINICAL INFORMATION: Baseline EKG shows sinus rhythm, poor R-wave progression, nonspecific ST-T wave changes. The patient was given intravenous dobutamine over a period of 10 minutes as per protocol, achieving 85% of predicted maximal heart rate without chest pain or diagnostic ST-segment depression. Baseline echo shows normal left ventricular size, wall motion and systolic function. Post dobutamine infusion, there is normal hyperdynamic response of all the segments of myocardium noted. Endocardial visualization was enhanced using contrast agent. CONCLUSIONS: 1. Negative stress test by EKG criteria. 2. Negative Dobutamine stress echo. MMCECILYL / IJN: [id number] /
[2020-06-29 12:54] LABS: Glucose,Whole Blood 95 mg/dL (75-99)
[2020-06-29 14:42] VITALS: BP 138/73; RESP 14; TEMP 98.3
[2020-06-29 15:53] LABS: LDL Cholesterol,Calculated 79.6 mg/dL (0.0-131.0); VLDL Calculation 32.4 mg/dL (5.00-40.00)
--- NOTE | 2020-06-29 23:17 | P.DS ---
Providers Date of admission: 06/28/20 05:43 Expected date of discharge: 06/29/20 Attending physician: Emerson Delgadillo Consults: 06/28/20 05:43 Consult Physician Routine Consulting Provider: Pavan Price Consult Reason/Comments: chest pain Do you want consulting provider notified?: Yes Primary care physician: Jagdish Néstor [facility] Course: Chief Complaint: Chest pain History of presenting complaint This is a pleasant 60-year-old patient of Dr. Talya Palm. Chronic stable medical conditions include diabetes, fibromyalgia, hypertension, osteoarthritis, obstructive sleep apnea uses CPAP, diverticulosis, hiatal hernia, monoclonal gammopathy of undetermined significance,. Patient yesterday started with central sharp chest pain. He woke up with the same. It is present mode of yesterday. It was worse with a deep breath. It is not really reproducible. Don't radiate. No dizziness or lightheadedness. No fever no chills. No cough. It seems to progress over yesterday. Has decided to come in. Dobutamine stress echocardiogram negative Today: Doing well. No new issues. Consultation: Dr. Bonnie Roach from cardiology Past medical history to include: Diabetes, fibromyalgia, hard of hearing, hypertension, osteoarthritis, obstructive sleep apnea uses CPAP, diverticulosis, hiatal hernia, umbilical hernia, monoclonal gammopathy of undetermined significance, anxiety depression Social history: Patient has a both cane and a walker. Lives with his sister. Does not smoke or drink alcohol. Physical examination: VITAL SIGNS: 98.1, 98, 17, 124.76, 98% room air GENERAL: Sitting up comfortable EYES: Pupils equal. Conjunctiva normal. HEENT: External appearance of nose and ears normal, oral cavity grossly normal. NECK: JVD not raised; masses not palpable. HEART: First and second heart sounds are normal; no edema. LUNGS: Respiratory rate normal; clear to auscultation. ABDOMEN: Soft, nontender, liver spleen not palpable, no masses palpable. PSYCH: Alert and oriented x3; mood and affect normal. MUSCULAR skeletal: Swelling of the left knee with tenderness, local redness INVESTIGATIONS, reviewed in the clinical context: WBC 7.8 hemoglobin 11.9 platelets 246 potassium 4.2 creatinine 1.11 blood glucose 246 Coronavirus [PCR]-not detected EKG tracing personally reviewed by me-normal sinus rhythm. PVCs Chest x-ray film personally reviewed by me-/portable: Unremarkable 2-D echocardiogram course: Moderate concentric LVH. EF 60-65% Dobutamine stress echocardiogram Cordarone negative for ischemia Assessment: -Left anterior chest wall pain. Localized. Sharp. Nonreproducible. No associated symptoms. Most likely viral pleurisy. Dobutamine stress echocardiogram negative -Chronic kidney disease stage III with baseline creatinine of 1.3-1.4 per nephrology likely nephrosclerosis. Follow BMP -Diabetes mellitus type 2, Continue with metformin and insulin. Follow Accu-Cheks -Chronic fibromyalgia Pain control as needed -Essential hypertension Continue Toprol-XL, Zestoretic -Primary osteoarthritis Pain control as needed -Obstructive sleep apnea uses CPAP -Chronic diverticulosis asymptomatic -Hiatal hernia -Monoclonal gammopathy of undetermined significance -Obesity BMI 36.3 Weight loss measures and follow with PCP for follow-up Disposition: Home Plan - Discharge Summary Discharge Rx Participant: No New Discharge Prescriptions: Continue Lisinopril-Hctz 20-25 mg [Zestoretic 20-25] 1 tab PO QAM Cyclobenzaprine [Flexeril] 10 mg PO TID PRN PRN Reason: Muscle Spasm Nystatin 100,000Unit/gm Cream [Mycostatin Cream] 1 applic TOPICAL BID PRN PRN Reason: Skin Irritation Triamcinolone 0.1% Cream [Kenalog 0.1% Cream] 1 applic TOPICAL BID PRN PRN Reason: Skin Irritation Omeprazole 20 mg PO QAM Ergocalciferol [Vitamin D2 (DRISDOL)] 50,000 unit PO Q30D HYDROcodone/APAP 10-325MG [[place] 10-325] 1 tab PO BID PRN PRN Reason: Breakthrough Pain Morphine Sulfate [Ms Contin] 15 mg PO Q12HR Lisinopril-Hctz 20-25 mg [Zestoretic 20-25] 0.5 tab PO HS PRN PRN Reason: Blood Pressure - High Metoprolol Succinate [Toprol XL] 25 mg PO HS Insulin Lispro [Insulin Lispro Kwikpen U-100] 10 units SQ AC-TID Magnesium 250 mg PO DAILY Ferrous Sulfate [Iron (65 MG Elemental)] 325 mg PO DAILY Clotrimazole Cream [Lotrimin Cream] 1 applic TOPICAL BID Cholecalciferol [Vitamin D3 (25 Mcg = 1000 Iu)] 50 mcg PO DAILY Insulin Lispro [humaLOG Kwikpen] 12 unit SQ HS Tamsulosin HCl [Flomax] 0.4 mg PO HS Changed Insulin Glargine,Hum.rec.anlog [Lantus Solostar] 70 unit SQ HS #0 metFORMIN HCL ER [Glucophage Xr] 500 mg PO AC-TID #0 Discharge Medication List Lisinopril-Hctz 20-25 mg [Zestoretic 20-25] 1 tab PO QAM 09/22/13 [History] Cyclobenzaprine [Flexeril] 10 mg PO TID PRN 10/15/13 [History] Ergocalciferol [Vitamin D2 (DRISDOL)] 50,000 unit PO Q30D 12/12/16 [History] Nystatin 100,000Unit/gm Cream [Mycostatin Cream] 1 applic TOPICAL BID PRN 12/12/16 [History] Omeprazole 20 mg PO QAM 12/12/16 [History] Triamcinolone 0.1% Cream [Kenalog 0.1% Cream] 1 applic TOPICAL BID PRN 12/12/16 [History] HYDROcodone/APAP 10-325MG [[place] 10-325] 1 tab PO BID PRN 04/29/18 [History] Morphine Sulfate [Ms Contin] 15 mg PO Q12HR 09/02/19 [History] Insulin Lispro [Insulin Lispro Kwikpen U-100] 10 units SQ AC-TID 12/08/19 [History] Lisinopril-Hctz 20-25 mg [Zestoretic 20-25] 0.5 tab PO HS PRN 12/08/19 [History] Metoprolol Succinate [Toprol XL] 25 mg PO HS 12/08/19 [History] Cholecalciferol [Vitamin D3 (25 Mcg = 1000 Iu)] 50 mcg PO DAILY 06/28/20 [History] Clotrimazole Cream [Lotrimin Cream] 1 applic TOPICAL BID 06/28/20 [History] Ferrous Sulfate [Iron (65 MG Elemental)] 325 mg PO DAILY 06/28/20 [History] Insulin Lispro [humaLOG Kwikpen] 12 unit SQ HS 06/28/20 [History] Magnesium 250 mg PO DAILY 06/28/20 [History] Tamsulosin HCl [Flomax] 0.4 mg PO HS 06/28/20 [History] Insulin Glargine,Hum.rec.anlog [Lantus Solostar] 70 unit SQ HS #0 06/29/20 [Rx] metFORMIN HCL ER [Glucophage Xr] 500 mg PO AC-TID #0 06/29/20 [Rx] Follow up Appointment(s)/Referral(s): Jagdish Palm DO [Primary Care Provider] - 1-2 days Patient Instructions/Handouts: Septic Arthritis (GEN) Discharge Disposition: HOME SELF-CARE
[2020-07-17] MEDS ORDERED: ERGOCALCIFEROL 1,250 MCG (50,000 IU) CAPSULE PO SCH (06:00)
== END 2020-06-29 16:47 | disposition home or self-care (01) ==
LOC: EC 02:24 → 6NMEDSUR 05:43
PROVIDERS: ADMIT Hospitalist; ATTEND Hospitalist
DX: R07.89 Other chest pain (principal); I12.9 Hypertensive chronic kidney disease with stage 1 through stage 4 chronic kidney disease, or unspecified chronic kidney disease; N18.30 Chronic kidney disease, stage 3 unspecified; E11.22 Type 2 diabetes mellitus with diabetic chronic kidney disease; M79.7 Fibromyalgia; R07.2 Precordial pain; I49.3 Ventricular premature depolarization; E78.5 Hyperlipidemia, unspecified; G47.33 Obstructive sleep apnea (adult) (pediatric); K44.9 Diaphragmatic hernia without obstruction or gangrene; K57.90 Diverticulosis of intestine, part unspecified, without perforation or abscess without bleeding; M19.91 Primary osteoarthritis, unspecified site; H91.90 Unspecified hearing loss, unspecified ear; D47.2 Monoclonal gammopathy; Z99.89 Dependence on other enabling machines and devices; E66.9 Obesity, unspecified; Z20.822 Contact with and (suspected) exposure to COVID-19; Z68.36 Body mass index [BMI] 36.0-36.9, adult; K42.9 Umbilical hernia without obstruction or gangrene; G43.909 Migraine, unspecified, not intractable, without status migrainosus; R32 Unspecified urinary incontinence; B35.3 Tinea pedis; H93.19 Tinnitus, unspecified ear; F32.9 Major depressive disorder, single episode, unspecified; F41.9 Anxiety disorder, unspecified; Z79.4 Long term (current) use of insulin; Z79.891 Long term (current) use of opiate analgesic; Z79.899 Other long term (current) drug therapy; Z88.5 Allergy status to narcotic agent; Z88.8 Allergy status to other drugs, medicaments and biological substances; Z86.19 Personal history of other infectious and parasitic diseases; Z98.890 Other specified postprocedural states; Z80.8 Family history of malignant neoplasm of other organs or systems; Z82.49 Family history of ischemic heart disease and other diseases of the circulatory system
CPT/HCPCS: 93005 ×2; 96374; 99285; 36415; 93306; 85379; 80061; 80053; 83735; 84484; 85025; 85610; 85730; 87635; 71045; G0378 ×2; C8930; J1250; J2270; Q9950; 93351

== ENCOUNTER → 2020-08-30 | Outpatient (CLI) | payer OTHER ==
[2020-08-30 08:41] LABS: Color,Urine Light Yellow
[2020-08-30 08:42] LABS: Appearance,Urine Clear (Clear); Bilirubin,Urine Negative (Negative); Blood,Urine Negative (Negative); Glucose,Urine (UA) Negative (Negative); Ketones,Urine Negative (Negative); Leukocyte Esterase,Urine Negative (Negative); Nitrite,Urine Negative (Negative); Protein,Urine Negative (Negative); Specific Gravity,Urine 1.015 (1.001-1.035); Urobilinogen,Urine <2.0 mg/dL (<2.0)
[2020-08-30 11:46] LABS: HCT 35.5 % (39.6-50.0); HGB 11.6 g/dL (13.0-17.0); MCH 30.4 pg (27.0-32.0); MCHC 32.7 g/dL (32.0-37.0); MCV 92.9 fL (80.0-97.0); Platelet Count 210 X 10*3/uL (140-440); RBC 3.82 X 10*6/uL (4.40-5.60); RDW 14.3 % (11.5-14.5); WBC 8.22 X 10*3/uL (4.50-10.00)
[2020-08-30 11:55] LABS: % Iron Saturation 18.85 (15.00-50.00); African American GFR (CKD) 75.7 (60.0-200.0); Albumin 4.4 g/dL (3.80-4.90); Albumin/Globulin Ratio 1.47 (1.60-3.17); Anion Gap 11.7 mmol/L (4.00-12.00); BUN/Creat Ratio 13.33 Ratio (12.00-20.00); Calcium 9.8 mg/dL (8.7-10.3); Carbon Dioxide 28.3 mmol/L (21.6-31.8); Magnesium 1.7 mg/dL (1.5-2.4); Non-African American GFR(CKD) 65.3 (60.0-200.0); Phosphorus 3.6 mg/dL (2.4-5.1); Potassium 4.9 mmol/L (3.5-5.5); Total Bilirubin 0.2 mg/dL (0.3-1.2); Total Protein 7.4 g/dL (6.2-8.2)
[2020-08-30 13:51] LABS: Uric Acid 6.2 mg/dL (3.7-8.7)
== END | disposition home or self-care (01) ==
LOC: LABWHC1 07:30
PROVIDERS: ATTEND Nurse Practitioner Family
DX: N18.31 Chronic kidney disease, stage 3a (principal); D64.9 Anemia, unspecified; N39.0 Urinary tract infection, site not specified; N25.81 Secondary hyperparathyroidism of renal origin; E55.9 Vitamin D deficiency, unspecified; M10.9 Gout, unspecified
CPT/HCPCS: 36415; 80053; 81003; 82306; 82728; 83540; 83550; 83735; 83970; 84100; 84550; 85027

== ENCOUNTER 2020-09-04 10:11 | Emergency (ER) | payer OTHER ==
[2020-09-04 10:15] VITALS: TEMP 98.7
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
[2020-09-04] MEDS ORDERED: MORPHINE SULFATE 4 MG/ML SYRINGE IM STA (10:45)
--- NOTE | 2020-09-04 11:19 | XR ---
EXAMINATION TYPE: XR shoulder complete LT, XR clavicle LT DATE OF EXAM: 09/04/2020 CLINICAL HISTORY: Fall injury with pain. TECHNIQUE: Three views of the left shoulder are obtained. 2 views left clavicle. COMPARISON: Left shoulder x-ray May 16, 2017. FINDINGS: There is no acute fracture/dislocation evident in the left shoulder. Mild to moderate narr owing of acromioclavicular joint redemonstrated. Distal acromion morphology unremarkable. Glenohumer al joint shows stable mild narrowing. The visualized ribs are intact and unremarkable. Images of the left clavicle show no acute displaced fracture. Overlying soft tissue is unremarkable. IMPRESSION: There is no acute fracture or dislocation in the left clavicle or the left shoulder.
--- NOTE | 2020-09-04 11:20 | XR ---
EXAMINATION TYPE: XR chest 2V DATE OF EXAM: 09/04/2020 COMPARISON: Chest x-ray June 28, 2020 HISTORY: Fall injury with chest pain. TECHNIQUE: Frontal and lateral views of the chest are obtained. FINDINGS: Improved inspiration current study. There is patchy left basilar opacity favoring atelecta tic change. No pleural effusion or pneumothorax seen bilaterally. The cardiac silhouette size is sta ble and within normal limits. The osseous structures are intact. IMPRESSION: Left basilar linear atelectasis.
[2020-09-04 12:02] VITALS: BP 138/82; PULSE 100; RESP 18
== END 2020-09-04 12:23 | disposition home or self-care (01) ==
LOC: EC 10:11
DX: M25.512 Pain in left shoulder (principal); E11.9 Type 2 diabetes mellitus without complications; I10 Essential (primary) hypertension; E66.9 Obesity, unspecified; M79.7 Fibromyalgia; M19.90 Unspecified osteoarthritis, unspecified site; G47.30 Sleep apnea, unspecified; F32.9 Major depressive disorder, single episode, unspecified; F41.9 Anxiety disorder, unspecified; G43.909 Migraine, unspecified, not intractable, without status migrainosus; Z79.4 Long term (current) use of insulin; Z88.8 Allergy status to other drugs, medicaments and biological substances; Z68.36 Body mass index [BMI] 36.0-36.9, adult; W01.198A Fall on same level from slipping, tripping and stumbling with subsequent striking against other object, initial encounter; Y93.55 Activity, bike riding; Y92.410 Unspecified street and highway as the place of occurrence of the external cause
CPT/HCPCS: 73030; 73000; 71046; 99284; 96372; J2270

== ENCOUNTER → 2020-09-08 | Outpatient (CLI) | payer OTHER ==
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
[2020-09-08 08:16] VITALS: BP 117/75; PULSE 110; RESP 18; TEMP 98.4
== END ==
LOC: PNWHC3 07:47
PROVIDERS: ATTEND Anesthesiology
DX: M51.36 Other intervertebral disc degeneration, lumbar region (principal); M47.816 Spondylosis without myelopathy or radiculopathy, lumbar region; M46.1 Sacroiliitis, not elsewhere classified; G89.29 Other chronic pain; Z98.890 Other specified postprocedural states; Z88.5 Allergy status to narcotic agent; Z88.8 Allergy status to other drugs, medicaments and biological substances
CPT/HCPCS: 99211

== ENCOUNTER 2020-09-28 06:15 | Day surgery (SDC) | payer OTHER ==
[2020-09-27 09:44] VITALS: BMI 35.5
[2020-09-28 07:20] VITALS: RESP 18; TEMP 98
[2020-09-28] MEDS ORDERED: LIDOCAINE 1% (10MG/ML) FOR IV START INTRADERMA ONE (07:35)
[2020-09-28 07:36] LABS: Glucose,Whole Blood 85 mg/dL (75-99)
[2020-09-28] MEDS ORDERED: LACTATED RINGERS 1,000 ML IV ONE (07:36)
[2020-09-28] MEDS ORDERED: MIDAZOLAM 2 MG/2 ML VIAL ONE (07:52)
[2020-09-28] MEDS ORDERED: fentaNYL (PF) 50 MCG/ML 2 ML AMP ONE (07:52)
[2020-09-28] MEDS ORDERED: ROPIVACAINE 5MG/ML 20ML VIAL ONE (07:52)
[2020-09-28] MEDS ORDERED: TRIAMCINOLONE ACETONIDE 40 MG/ML 1 ML VIAL ONE (07:52)
--- NOTE | 2020-09-28 08:03 | P.PCN ---
Date of Procedure: 09/28/20 Surgeon: Everett Hare Pathology: none sent Condition: stable Description of Procedure: Preoperative diagnoses= sacroiliac joint dysfunction and sacroiliitis on the right side Postoperative diagnoses= same as preoperative diagnosis. Procedure= sacroiliac joint steroid injection under fluoroscopic guidance. Anesthesia= local anesthesia with lidocaine 1% and IV moderate conscious sedation with fentanyl and Versed Estimated blood loss=minimal. Procedure indication= the patient had a history of severe chronic low back pain, diagnosed with sacroiliitis and lumbar sacral facet arthropathy unresponsive to conservative treatment. Procedure description= the patient was seen and identified in the preoperative holding area, risks and benefits and alternative of the procedure and possible complications discussed with the patient, patient signed the consent. an IV was started, and vital signs were monitored and were stable throughout the procedure, patient was placed in the prone position or table and the lumbosacral area was prepped and draped with a sterile fashion, vital signs were closely monitored during the procedure.The sacroiliac joint was identified on the AP view of fluoroscopy then the C-arm was tilted to the contralateral oblique position to superimpose the anterior and posterior joint lines on each other and to have a unified joint line with the target point at the inferior one third of this line. I used 22-gauge 3-1/2 inch Quincke spinal needle for this procedure and after getting into the sacroiliac joint I injected 40 mg of Kenalog +2 MLS of Ropivacaine 0.5%. Patient tolerated the procedure well without any complication, The patient returned to supine position after the back was cleaned and a Band- Aid applied, the patient transported to recovery room in stable condition and he was monitored for 30 minutes before she was discharged home in stable condition . patient will follow up with the pain clinic in a few weeks. A copy of the needle placement was saved to the C-arm machine.
[2020-09-28] MEDS ORDERED: IV FLUID CONTINUATION 1,000 ML IV ONE (08:10)
[2020-09-28 08:11] VITALS: BP 114/65; PULSE 98
--- NOTE | 2020-09-28 08:51 | FL ---
EXAMINATION TYPE: FL guided pain mgmt statistic DATE OF EXAM: 09/28/2020 CLINICAL HISTORY: Right SI joint injection TECHNIQUE: Fluoroscopy. COMPARISON: None. FINDINGS: Fluoroscopic guidance was provided during procedure by performing physician. A total of 5 seconds of fluoroscopic time was utilized during the procedure and 1 spot images was acquired. IMPRESSION: As Above.
== END 2020-09-28 09:09 | disposition home or self-care (01) ==
LOC: ORPAIN 06:15
PROVIDERS: ATTEND Anesthesiology
DX: G89.29 Other chronic pain (principal); M46.1 Sacroiliitis, not elsewhere classified; M53.3 Sacrococcygeal disorders, not elsewhere classified; M51.36 Other intervertebral disc degeneration, lumbar region; M47.816 Spondylosis without myelopathy or radiculopathy, lumbar region; Z79.891 Long term (current) use of opiate analgesic; Z79.899 Other long term (current) drug therapy; Z79.84 Long term (current) use of oral hypoglycemic drugs; Z79.4 Long term (current) use of insulin
CPT/HCPCS: J2250; J3301; J3010; J2795; G0260; 27096

== ENCOUNTER → 2020-10-25 | Outpatient (CLI) | payer OTHER ==
[2020-10-25 09:55] VITALS: BP 136/79; PULSE 110; RESP 18; TEMP 99.1
--- NOTE | 2020-10-25 10:06 | P.PAINPG ---
Subjective Progress Note Date: 10/25/20 This is follow-up visit for this patient with a history of severe and chronic low back pain secondary to lumbar degenerative disc diseases , lumbar spondylosis with facet arthropathy. recap we have done interventional pain procedures for this patient including radiofrequency ablation of the right SIJ and lumbar area In 2019. He had a right-sided sacroiliac joint and with greater than 80% relief for only a week and a half. Overall he is doing his best to manage his pain with conservative therapy including medications, home exercise program, stretching, medicare contact specialist. He has had sacral iliac joint RFA in the past with great relief however since that insurance does not able to cover that for him. He does mention that he had a bilateral L4-L5 and L5-S1 radio free to ablation in the past with good relief and he would like to repeat that as he is interested in more longer lasting relief. With that last radio frequency ablation had greater than 80% relief for 6 months. Patients currently on Motrin 600 mg every 6 hours ,[place] 10/325 every 8 hours, Flexeril 10 mg every 8 hours, MS ER 15 Mg BID Patient denies any side effects of the medication, denies excessive drowsiness or sleepiness, denies suicidal ideation, and reports that the current pain medication is helping to control the pain and improve activity of daily living Patient denies any motor or sensory deficit , patient denies any fever or night sweats, denies any change in the bowel movements or urination Physical Examinations : 1-Constitutional : Cooperative , not in acute distress . 2-HEENT : nech ; supple , no Lymphadenopathy , no Thyromegaly , normal thyroid size . 3- Respiratory : Chest clear to auscultations Bilaterally , no wheezing , no Rhonchi . 4- Cardiovascular : regular rate and rhythm 5- Gastrointestinal : abdomen soft no tenderness 6- Genitourinary : Defferred . 7- neurologic: Cranial nerve II to XII intact , no focal neurological deffecit . 8- Psychatric: alert , oriented X 3 , appropriate affect , intact judgment and insight . . 10- Musculoskeltal : exams of the cervical spine = motor strength normal bilateral upper extremities Ignorance of the left shoulder = abduction , and lateral rotation of the left shoulder associated with severe pain exams of the Lumber spine =motor strength lower extremities ,thigh and legs .5/5 deep tendon reflexes : normal Knee Jerk , normal ankle Jerk . lumber facet Loading Test negative Range of motion in flexion of the lumbar spine 30 degrees range of motion of extension of the lumbar spine 10 degrees Sever tenderness over the Sacroiliac joint on the right side. positive R patricks test, distraction test, gaenslen test. Assessment and plan = Chronic low back pain secondary to lumbar degenerative disc disease , lumbar spondylosis with facet arthropathy without myelopathy , left sacroiliitis Pain improved after the radiofrequency ablation of the medial branch lumbar area. Currently patient having pain secondary to left sacroiliitis , he will be good candidate to have repeat R SIJ RFA Patient will continue to use Motrin, [place] 10/325 every 3 hours, MS ER 15 mg BID,, Flexeril 10 mg every 8 hours when necessary, his current prescription with refills from his primary care We will schedule him for bilateral RFA at L4-5 and L5-S1, he has had this in the past with great relief. Can always repeat SIJ as needed, however given it only gave short lasting relief he would like to pursue something longer lasting. I have spent 25 minutes with chart reviewing the patient, speaking to the patient, and discussing plan of care with the patient PQRS Measure Charge Sheet PQRS Narrative: Smoking Status Never smoker Pain Intensity [Lower Back] 8 Hx Alcohol Use (MH) No Home Medications: Ambulatory Orders Lisinopril-Hctz 20-25 mg [Zestoretic 20-25] 1 tab PO QAM 09/22/13 Cyclobenzaprine [Flexeril] 10 mg PO TID PRN 10/15/13 Ergocalciferol [Vitamin D2 (DRISDOL)] 50,000 unit PO Q30D 12/12/16 Nystatin 100,000Unit/gm Cream [Mycostatin Cream] 1 applic TOPICAL BID PRN 12/12/16 Omeprazole 20 mg PO QAM 12/12/16 Triamcinolone 0.1% Cream [Kenalog 0.1% Cream] 1 applic TOPICAL BID PRN 12/12/16 HYDROcodone/APAP 10-325MG [[place] 10-325] 1 tab PO BID PRN 04/29/18 Morphine Sulfate [Ms Contin] 15 mg PO Q12HR 09/02/19 Insulin Lispro [Insulin Lispro Kwikpen U-100] 10 units SQ AC-TID 12/08/19 Lisinopril-Hctz 20-25 mg [Zestoretic 20-25] 0.5 tab PO HS PRN 12/08/19 Metoprolol Succinate [Toprol XL] 25 mg PO HS 12/08/19 Cholecalciferol [Vitamin D3 (25 Mcg = 1000 Iu)] 50 mcg PO DAILY 06/28/20 Clotrimazole Cream [Lotrimin Cream] 1 applic TOPICAL BID PRN 06/28/20 Ferrous Sulfate [Iron (65 MG Elemental)] 325 mg PO DAILY 06/28/20 Insulin Lispro [humaLOG Kwikpen] 12 unit SQ HS 06/28/20 Magnesium 250 mg PO DAILY 06/28/20 Tamsulosin HCl [Flomax] 0.4 mg PO HS 06/28/20 Insulin Glargine,Hum.rec.anlog [Lantus Solostar] 100 unit SQ HS 09/27/20 metFORMIN HCL ER [Glucophage XR] 2,000 mg PO HS 09/27/20 Controlled Substance Measures - Controlled Substance Measures Is patient prescribed a controlled substance at discharge?: No
== END ==
LOC: PNWHC3 09:27
PROVIDERS: ATTEND Anesthesiology
DX: M51.36 Other intervertebral disc degeneration, lumbar region (principal); M47.816 Spondylosis without myelopathy or radiculopathy, lumbar region; M46.1 Sacroiliitis, not elsewhere classified; G89.29 Other chronic pain; Z88.5 Allergy status to narcotic agent; Z88.6 Allergy status to analgesic agent; Z88.8 Allergy status to other drugs, medicaments and biological substances; Z91.018 Allergy to other foods
CPT/HCPCS: 99211

== ENCOUNTER 2020-11-08 12:23 | Emergency (ER) | payer OTHER ==
[2020-11-08 12:57] VITALS: TEMP 98.3
--- NOTE | 2020-11-08 13:15 | ED ---
General Adult HPI - General Chief complaint: Nausea/Vomiting/Diarrhea Stated complaint: elevated BP Time Seen by Provider: 11/08/20 13:14 Source: patient Mode of arrival: wheelchair Limitations: no limitations - History of Present Illness Initial comments: Patient presents to the ED with numerous complaints. Patient states that he was sitting at his desk working on his computer about 3 hours ago when he developed generalized weakness, "tingling" in his bilateral hands, head pressure, nausea and bilateral tinnitus. Patient states that he checked his blood pressure at that time and it was elevated at 159/103. Patient states that he also checked h is blood sugar, and it was 86 at the time. Patient states that his symptoms are still present, but have improved. Patient denies trauma or injury, fever or chills, sudden onset of headache, LOC neck pain or stiffness, focal weakness, visual changes, speech difficulty, chest pain or pressure, dyspnea, cough or cold symptoms, palpitations, vomiting, diaphoresis, abdominal pain, diarrhea, bloody or melanotic stool, dysuria or urinary symptoms, leg or calf swelling or pain, or any other symptoms or complaints. - Related Data Home Medications Medication Instructions Recorded Confirmed Lisinopril-Hctz 20-25 mg 1 tab PO QAM 09/22/13 10/21/20 [Zestoretic 20-25] Cyclobenzaprine [Flexeril] 10 mg PO TID PRN 10/15/13 10/21/20 Ergocalciferol [Vitamin D2 50,000 unit PO Q30D 12/12/16 10/21/20 (DRISDOL)] Nystatin 100,000Unit/gm Cream 1 applic TOPICAL BID PRN 12/12/16 10/21/20 [Mycostatin Cream] Omeprazole 20 mg PO QAM 12/12/16 10/21/20 Triamcinolone 0.1% Cream [Kenalog 1 applic TOPICAL BID PRN 12/12/16 10/21/20 0.1% Cream] HYDROcodone/APAP 10-325MG [[place] 1 tab PO BID PRN 04/29/18 10/21/20 10-325] Morphine Sulfate [Ms Contin] 15 mg PO Q12HR 09/02/19 10/21/20 Insulin Lispro [Insulin Lispro 10 units SQ AC-TID 12/08/19 10/21/20 Kwikpen U-100] Lisinopril-Hctz 20-25 mg 0.5 tab PO HS PRN 12/08/19 10/21/20 [Zestoretic 20-25] Metoprolol Succinate [Toprol XL] 25 mg PO HS 12/08/19 10/21/20 Cholecalciferol [Vitamin D3 (25 50 mcg PO DAILY 06/28/20 10/21/20 Mcg = 1000 Iu)] Clotrimazole Cream [Lotrimin Cream] 1 applic TOPICAL BID PRN 06/28/20 10/21/20 Ferrous Sulfate [Iron (65 MG 325 mg PO DAILY 06/28/20 10/21/20 Elemental)] Insulin Lispro [humaLOG Kwikpen] 12 unit SQ HS 06/28/20 10/21/20 Magnesium 250 mg PO DAILY 06/28/20 10/21/20 Tamsulosin HCl [Flomax] 0.4 mg PO HS 06/28/20 10/21/20 Insulin Glargine,Hum.rec.anlog 100 unit SQ HS 09/27/20 10/21/20 [Lantus Solostar Pen] metFORMIN HCL ER [Glucophage XR] 2,000 mg PO HS 09/27/20 10/21/20 Allergies Allergy/AdvReac Type Severity Reaction Status Date / Time tramadol HCl [From Ultram] Allergy Unknown Abdominal Verified 11/08/20 12:55 Pain, diarrhea, severe headache pregabalin [From Lyrica] AdvReac Unknown INCREASED Verified 11/08/20 12:55 DEPRESSION propoxyphene napsylate AdvReac Unknown LOSS OF Verified 11/08/20 12:55 [From Darvocet-N 100] COORDINATION artficial sweetners Allergy Diarrhea, Uncoded 11/08/20 12:55 headache ANTIDEPRESSANTS AdvReac STATES Uncoded 11/08/20 12:55 INCREASE DEPRESSION Review of Systems ROS Statement: Those systems with pertinent positive or pertinent negative responses have been documented in the HPI. ROS Other: All systems not noted in ROS Statement are negative. Past Medical History Past Medical History: Blood Disorder, Chest Pain / Angina, Diabetes Mellitus, Fibromyalgia, Hearing Disorder / Deafness, Hypertension, Musculoskeletal Disorder, Osteoarthritis (OA), Renal Disease, Skin Disorder, Sleep Apnea/CPAP/BIPAP Additional Past Medical History / Comment(s): MIGRAINES, DIVERTICULOSIS, HIATAL HERNIA, umbilical hernia, ATHLETES FOOT, RINGING IN EARS, DDD, yeast rash in armpits and groins, occ. urinary incontinence, Monoclonal Gammapathy of Undetermined Significance(MGUS). Hx cellulitis. Has cpap machine. Coivd 07/07, stage 3 renal disease History of Any Multi-Drug Resistant Organisms: None Reported Past Surgical History: Orthopedic Surgery Additional Past Surgical History / Comment(s): RIGHT ROTATOR CUFF, RT CARPAL TUNNEL, BILATERAL INGUINAL HERNIA REPAIRS, ARTHROSCOPY BILATERAL KNEES, RIGHT ELBOW CUBITAL ULNAR SURGERY, PREVIOUS PAIN CLINIC PROCEDURES. Past Anesthesia/Blood Transfusion Reactions: Previous Problems w/ Anesthesia, Family History of Problems w/ Anesthesia Additional Past Anesthesia/Blood Transfusion Reaction / Comment(s): STATES HE NEEDED MORE ANESTHESIA, " I have a high tolerance". Mother experienced memory issues after anesthesia "for a couple weeks". Past Psychological History: Anxiety, Depression, PTSD Smoking Status: Never smoker Past Alcohol Use History: None Reported Past Drug Use History: None Reported - Past Family History Mother Family Medical History: Deep Vein Thrombosis (DVT) Additional Family Medical History / Comment(s): Precancerous cells - uterine. Sister(s) Family Medical History: Cancer Additional Family Medical History / Comment(s): Skin Cancer. Father Family Medical History: Diabetes Mellitus Additional Family Medical History / Comment(s): Diverticular disease. General Exam Limitations: no limitations General appearance: alert, in no apparent distress Head exam: Present: atraumatic, normocephalic Eye exam: Present: normal appearance, PERRL, EOMI ENT exam: Present: mucous membranes moist, TM's normal bilaterally Neck exam: Present: other (Trachea is in midline). Absent: tenderness, meningismus Respiratory exam: Present: normal lung sounds bilaterally. Absent: respiratory distress, wheezes, rales, rhonchi, stridor Cardiovascular Exam: Present: regular rate, normal rhythm, normal heart sounds, other (Normal radial pulses bilaterally) GI/Abdominal exam: Present: soft. Absent: distended, tenderness, guarding Extremities exam: Present: full ROM. Absent: tenderness, pedal edema, calf tenderness Back exam: Absent: tenderness Neurological exam: Present: alert, oriented X3, CN II-XII intact. Absent: motor sensory deficit Psychiatric exam: Present: normal affect, normal mood Skin exam: Present: warm, dry, intact, normal color Course Vital Signs 11/08/20 11/08/20 11/08/20 12:55 13:57 15:57 Temperature 98.3 F Pulse Rate 84 94 Respiratory 16 18 20 Rate Blood Pressure 173/80 129/72 O2 Sat by Pulse 100 99 Oximetry - Reevaluation(s) Reevaluation #1: 11/08/20 16:00 Patient states that his symptoms have now improved, and he denies development of any new symptoms while in the ED. Patient remains alert and breathing comfortably with a normal room air oxygen saturation. Patient's blood pressure has now improved to 129/72. Patient's labs and imaging studies are all unremarkable. Patient is aware of his test results, and he feels comfortable going home at this time. Patient was counseled about his symptoms and hypertension, and he was clearly explained return and follow-up instructions. Patient was instructed to have a low threshold for return to the emergency department should his symptoms worsen, and he was also advised to follow up closely with his primary care provider. Patient feels comfortable with this plan. EKG Findings - EKG Comments: EKG Findings:: Normal sinus rhythm, ventricular rate of 84 bpm, no ectopy, normal [place] and QRS intervals, normal QT interval, normal axis, no ST or T-wave abnormality Medical Decision Making - Medical Decision Making Patient's labs and imaging studies are all unremarkable. Patient's blood pressure has improved while in the ED. Patient has reassuring vital signs at this time. I do not suspect an emergent medical condition. Will discharge patient home at this time. - Lab Data Result diagrams: 11/08/20 14:17 11/08/20 14:17 Lab Results 11/08/20 11/08/20 11/08/20 Range/Units 14:17 14:17 14:17 WBC 7.1 (3.8-10.6) k/uL RBC 4.36 (4.30-5.90) m/uL Hgb 13.4 (13.0-17.5) gm/dL Hct 41.7 (39.0-53.0) % MCV 95.5 (80.0-100.0) fL MCH 30.8 (25.0-35.0) pg MCHC 32.2 (31.0-37.0) g/dL RDW 13.6 (11.5-15.5) % Plt Count 241 (150-450) k/uL MPV 8.5 Neutrophils % 62 % Lymphocytes % 29 % Monocytes % 5 % Eosinophils % 1 % Basophils % 1 % Neutrophils # 4.4 (1.3-7.7) k/uL Lymphocytes # 2.1 (1.0-4.8) k/uL Monocytes # 0.3 (0-1.0) k/uL Eosinophils # 0.1 (0-0.7) k/uL Basophils # 0.1 (0-0.2) k/uL PT 10.0 (9.0-12.0) sec INR 0.9 (<1.2) APTT 24.1 (22.0-30.0) sec Sodium 139 (137-145) mmol/L Potassium 4.1 (3.5-5.1) mmol/L Chloride 100 (98-107) mmol/L Carbon Dioxide 27 (22-30) mmol/L Anion Gap 12 mmol/L BUN 14 (9-20) mg/dL Creatinine 0.88 (0.66-1.25) mg/dL Est GFR (CKD-EPI)AfAm >90 (>60 ml/min/1.73 sqM) Est GFR (CKD-EPI)NonAf >90 (>60 ml/min/1.73 sqM) Glucose 75 (74-99) mg/dL Calcium 9.7 (8.4-10.2) mg/dL Total Bilirubin 0.3 (0.2-1.3) mg/dL AST 34 (17-59) U/L ALT 35 (4-49) U/L Alkaline Phosphatase 57 (38-126) U/L Troponin I (0.000-0.034) ng/mL NT-Pro-B Natriuret Pep pg/mL Total Protein 7.8 (6.3-8.2) g/dL Albumin 4.6 (3.5-5.0) g/dL 11/08/20 11/08/20 Range/Units 14:17 14:17 WBC (3.8-10.6) k/uL RBC (4.30-5.90) m/uL Hgb (13.0-17.5) gm/dL Hct (39.0-53.0) % MCV (80.0-100.0) fL MCH (25.0-35.0) pg MCHC (31.0-37.0) g/dL RDW (11.5-15.5) % Plt Count (150-450) k/uL MPV Neutrophils % % Lymphocytes % % Monocytes % % Eosinophils % % Basophils % % Neutrophils # (1.3-7.7) k/uL Lymphocytes # (1.0-4.8) k/uL Monocytes # (0-1.0) k/uL Eosinophils # (0-0.7) k/uL Basophils # (0-0.2) k/uL PT (9.0-12.0) sec INR (<1.2) APTT (22.0-30.0) sec Sodium (137-145) mmol/L Potassium (3.5-5.1) mmol/L Chloride (98-107) mmol/L Carbon Dioxide (22-30) mmol/L Anion Gap mmol/L BUN (9-20) mg/dL Creatinine (0.66-1.25) mg/dL Est GFR (CKD-EPI)AfAm (>60 ml/min/1.73 sqM) Est GFR (CKD-EPI)NonAf (>60 ml/min/1.73 sqM) Glucose (74-99) mg/dL Calcium (8.4-10.2) mg/dL Total Bilirubin (0.2-1.3) mg/dL AST (17-59) U/L ALT (4-49) U/L Alkaline Phosphatase (38-126) U/L Troponin I <0.012 (0.000-0.034) ng/mL NT-Pro-B Natriuret Pep 170 pg/mL Total Protein (6.3-8.2) g/dL Albumin (3.5-5.0) g/dL - Radiology Data Radiology results: report reviewed (Chest x-ray and noncontrast head CT are both negative) Disposition Clinical Impression: Headache, Tinnitus, Paresthesias, Nausea Disposition: HOME SELF-CARE Condition: Stable Instructions (If sedation given, give patient instructions): Acute Headache (ED), Paresthesia (ED), Hypertension (ED), Tinnitus (ED) Additional Instructions: Return to the ER immediately should you develop new or worsening pain, a fever, numbness or weakness, chest pain, increased shortness of breath, feeling dizzy or faint, vomiting, or new or worsening symptoms. Follow up closely with her primary care provider. Is patient prescribed a controlled substance at d/c from ED?: No Referrals: Jagdish Palm DO [Primary Care Provider] - 1-2 days Time of Disposition: 16:04
[2020-11-08 14:28] LABS: Basophils # (A) 0.1 k/uL (0-0.2); Basophils % (A) 1 %; Eosinophils # (A) 0.1 k/uL (0-0.7); Eosinophils % (A) 1 %; HCT 41.7 % (39.0-53.0); HGB 13.4 gm/dL (13.0-17.5); Lymphocytes # (A) 2.1 k/uL (1.0-4.8); Lymphocytes % (A) 29 %; MCH 30.8 pg (25.0-35.0); MCHC 32.2 g/dL (31.0-37.0); MCV 95.5 fL (80.0-100.0); Mean Platelet Volume 8.5; Monocytes # (A) 0.3 k/uL (0-1.0); Monocytes % (A) 5 %; Neutrophils # (A) 4.4 k/uL (1.3-7.7); Neutrophils % (A) 62 %; Platelet Count 241 k/uL (150-450); RBC 4.36 m/uL (4.30-5.90); RDW 13.6 % (11.5-15.5); WBC 7.1 k/uL (3.8-10.6)
[2020-11-08 14:38] LABS: INR 0.9 (<1.2); Partial Thromboplastin Time 24.1 sec (22.0-30.0)
[2020-11-08 14:39] LABS: ALT 35 U/L (4-49); AST 34 U/L (17-59); African American GFR (CKD) >90 (>60 ml/min/1.73 sqM); Albumin 4.6 g/dL (3.5-5.0); Alkaline Phosphatase 57 U/L (38-126); Anion Gap 12 mmol/L; Blood Urea Nitrogen 14 mg/dL (9-20); Calcium 9.7 mg/dL (8.4-10.2); Carbon Dioxide 27 mmol/L (22-30); Chloride 100 mmol/L (98-107); Glucose 75 mg/dL (74-99); Non-African American GFR(CKD) >90 (>60 ml/min/1.73 sqM); Potassium 4.1 mmol/L (3.5-5.1); Sodium 139 mmol/L (137-145); Total Bilirubin 0.3 mg/dL (0.2-1.3); Total Protein 7.8 g/dL (6.3-8.2)
--- NOTE | 2020-11-08 15:23 | CT ---
EXAMINATION TYPE: CT brain wo con DATE OF EXAM: 11/08/2020 COMPARISON: 05/15/2018 HISTORY: 60-year-old male headache, high blood pressure TECHNIQUE: Examination was done in axial plane without intravenous contrast. Coronal and sagittal r econstructions performed. CT DLP: 1100.4 mGycm Automated exposure control for dose reduction was used. FINDINGS: There is no evidence of acute intracranial hemorrhage, acute ischemic changes, mass, mass-effect, or extra-axial fluid collection. There is no effacement of cerebral sulci or basal subarachnoid cister ns. There is no hydrocephalus. There is no midline shift. Dubose-white matter distinction is preserv ed. Visualized paranasal sinuses and mastoid air cells appear clear. Visualized orbits and globes are int act. IMPRESSION: No acute intracranial abnormality seen.
--- NOTE | 2020-11-08 15:31 | XR ---
EXAMINATION TYPE: XR chest 2V DATE OF EXAM: 11/08/2020 COMPARISON: 09/04/2020 HISTORY: Shortness of breath TECHNIQUE: Frontal and lateral views of the chest are obtained. FINDINGS: Scattered senescent parenchymal changes noted. Hyperinflation compatible with COPD. No evidence for infiltrate. No evidence for atelectasis. Heart size is stable. Mediastinal structures are stable and grossly unremarkable. No evidence for hilar prominence. Degenerative changes dorsal spine. IMPRESSION: 1. No evidence for acute pulmonary disease.
[2020-11-08 15:58] VITALS: BP 129/72; PULSE 94; RESP 20
== END 2020-11-08 16:50 | disposition home or self-care (01) ==
LOC: EC 12:23
DX: R51.9 Headache, unspecified (principal); H93.13 Tinnitus, bilateral; R20.2 Paresthesia of skin; R11.0 Nausea; I12.9 Hypertensive chronic kidney disease with stage 1 through stage 4 chronic kidney disease, or unspecified chronic kidney disease; E11.22 Type 2 diabetes mellitus with diabetic chronic kidney disease; N18.30 Chronic kidney disease, stage 3 unspecified; M19.90 Unspecified osteoarthritis, unspecified site; F41.9 Anxiety disorder, unspecified; F32.9 Major depressive disorder, single episode, unspecified; F43.12 Post-traumatic stress disorder, chronic; Z79.4 Long term (current) use of insulin; Z86.16 Personal history of COVID-19; Z88.6 Allergy status to analgesic agent
CPT/HCPCS: 36415; 70450; 71046; 80053; 83880; 84484; 85025; 85610; 85730; 93005; 99285

== ENCOUNTER 2020-11-12 09:29 | Day surgery (SDC) | payer OTHER ==
[~2020-11-12 09:29] MED LIST changes: -DEXAMETHASONE SOD PHOSPHATE 10 MG/ML 1 ML VIAL IV ONE; -HYDROmorphone (PF) 1 MG/ML ONE; -KETOROLAC 15 MG/ML 1 ML VIAL IVP ONE; -LIDOCAINE 1% (10MG/ML) FOR IV START INTRADERMA ONE; +LIDOCAINE 1% (10MG/ML) FOR IV START INTRADERMA PRN; -LIDOCAINE 1% INJ 10MG/ML (20 ML MDV) ONE; -MIDAZOLAM 2 MG/2 ML VIAL ONE; -ONDANSETRON 4 MG/2 ML VIAL IVP ONE; -PROPOFOL 10 MG/ML 20 ML VIAL IV ONE; -SODIUM CHLORIDE 0.9% 50 ML with ceFAZolin 2,000 MG IV ONE; -SUCCINYLCHOLINE CHLORIDE 100 MG/5 ML SYR IV ONE; -fentaNYL (PF) 50 MCG/ML 2 ML AMP ONE
[2020-11-12] MEDS ORDERED: LACTATED RINGERS 1,000 ML IV ONE ×2 (10:16→10:57)
[2020-11-12 10:20] LABS: Glucose,Whole Blood 88 mg/dL (75-99)
[2020-11-12] MEDS ORDERED: fentaNYL (PF) 50 MCG/ML 2 ML AMP ONE (10:20)
[2020-11-12] MEDS ORDERED: MIDAZOLAM 2 MG/2 ML VIAL ONE (10:20)
[2020-11-12] MEDS ORDERED: methylPREDNISolone ACETATE 40 MG/ML 1 ML VIAL ONE (10:20)
[2020-11-12] MEDS ORDERED: ROPIVACAINE 5MG/ML 20ML VIAL ONE (10:20)
[2020-11-12 10:21] VITALS: TEMP 96.9
--- NOTE | 2020-11-12 10:49 | P.PCN ---
Date of Procedure: 11/12/20 Procedure(s) Performed: PREOPERATIVE DIAGNOSIS: 1-Lumbar Spondylosis with Facet Arthropathy without myelopathy. 2- Lumber degenerative disc disease. 3-sacroiliitis. POSTOPERATIVE DIAGNOSIS: 1- Lumbar Spondylosis with Facet Arthropathy without myelopathy. 2- Lumber degenerative disc disease. 3-sacroiliitis. PROCEDURES : Bilateral Radiofrequency thermocoagulation, L3 , L4 , and L5 medial branch, with fluoroscopic guidance (fluoroscopy images available in the radiology department) ( to denervate the facet joint at Bilateral L4-5 ,and L5-S1 levels ). ANESTHESIA: Monitored anesthesia care as per anesthesia department . EBL: Minimal PROCEDURE INDICATION: The patient with low back pain secondary to lumbar facet arthropathy who had more than 50% relief of her pain with previous diagnostic lumbar medial branch block with bupivacaine. PROCEDURE DESCRIPTION / TECHNIQUE: The patient was seen and identified in the preoperative area. Risks, benefits, complications, including but not limited to risk of infection ,bleeding , allergic reactions to the medications and no complete pain releife , and alternatives were discussed with the patient, the patient agreed to proceed with the procedure and signed the consent. IV was started. Vital signs remained stable throughout the procedure. Patient was taken to the OR and time out was completed. The patient was placed in the prone position on the procedure table. The lumber area was prepped and draped in the usual sterile fashion. . Vital signs were closely monitored during the procedure .IV sedation was used during the procedure to decrease patients anxiety. Using AP and then oblique fluoroscopy, the ``eye of the Shabbir dog corresponding to the connection between the superior and transverse articular processes of right L3, L4, and L5 were identified, marked, and localized with 1% lidocaine. Subsequently, a 18 [id number] radiofrequency cannula with a 10- mm active tip was advanced guided by fluoroscopy to each of the``eyes of the Shabbir dog at right L3, L4, and L5. Each site then underwent sensory testing at 50 Hz and 0 to 1 volt and motor testing at 2.5 Hz and 0 to 3 volt with local stimulation, but no radicular symptoms down the legs. Thereafter each sites underwent radiofrequency thermocoagulation at 80 degrees celsius for 90 seconds after injecting 0.5 ml of PF Ropivacaine 1ml, then after the thermocoagulation done , 1 ml of the block solution containing Depo-Medrol 20 mg and 3 ml of Ropivacaine 0.5% was injected at the right L3 , L4 , and L5 , levels after negative aspiration of CSF and blood and with no paresthesias. Cannulas were retracted while injecting lidocaine 1% until the needle is out. The same procedure was repeated at the level of Left L3, L4, and L5 levels. At the end of the procedure, the skin was cleansed and bandages were applied. COMPLICATIONS: No acute complications. DISPOSITION / PLANS: The patient was placed in a supine position and transferred to the recovery area in a stable condition for observation and was discharged from the recovery room after meeting discharge criteria. Home discharge instructions given to the patient by the staff. The patient was reexamined prior to discharge. The patient will schedule a follow up in the clinic in 2-4 weeks.
--- NOTE | 2020-11-12 11:05 | FL ---
EXAMINATION TYPE: FL guided pain mgmt statistic DATE OF EXAM: 11/12/2020 HISTORY: Fluoroscopy time 26 seconds of fluoroscopy provided. IMPRESSION: 1. Fluoroscopy time.
[2020-11-12 11:13] VITALS: BP 114/75; PULSE 110; RESP 17
[2020-11-12 11:17] LABS: Glucose,Whole Blood 55 mg/dL (75-99)
[2020-11-12] MEDS ORDERED: DEXTROSE 50% SYRINGE 50 ML IVP ONE ×2 (11:18→11:20)
[2020-11-12 11:35] LABS: Glucose,Whole Blood 101 mg/dL (75-99)
[2020-11-12 12:01] LABS: Glucose,Whole Blood 94 mg/dL (75-99)
== END 2020-11-12 12:03 | disposition home or self-care (01) ==
LOC: ORPAIN 09:29
PROVIDERS: ATTEND Specialist
DX: M47.816 Spondylosis without myelopathy or radiculopathy, lumbar region (principal); M51.36 Other intervertebral disc degeneration, lumbar region; M46.1 Sacroiliitis, not elsewhere classified; I25.10 Atherosclerotic heart disease of native coronary artery without angina pectoris; G47.33 Obstructive sleep apnea (adult) (pediatric); I12.9 Hypertensive chronic kidney disease with stage 1 through stage 4 chronic kidney disease, or unspecified chronic kidney disease; E11.22 Type 2 diabetes mellitus with diabetic chronic kidney disease; N18.30 Chronic kidney disease, stage 3 unspecified; M79.7 Fibromyalgia; Z79.899 Other long term (current) drug therapy; Z79.4 Long term (current) use of insulin; K57.90 Diverticulosis of intestine, part unspecified, without perforation or abscess without bleeding; Z88.5 Allergy status to narcotic agent; Z88.8 Allergy status to other drugs, medicaments and biological substances
CPT/HCPCS: 64635; 64636; J2250; J1030; J3010; J2795

== ENCOUNTER → 2020-12-08 | Outpatient (CLI) | payer OTHER ==
[2020-12-08 13:46] VITALS: BP 113/55; PULSE 95; RESP 20; TEMP 97.9
--- NOTE | 2020-12-08 14:03 | P.PN ---
Progress Note - Text Progress Note Date: 12/08/20 This is follow visit for this 60 years old male, with a chronic history of severe low back pain, he is diagnosed with lumbar spondylosis with lumbar facet arthropathy, last months with done RFA of the medial branch lumbar area bilaterally, he reported that he got more than 80% improvement of his low back pain after the RFA he denies any motor or sensory deficit, he denies any fever or night sweats, is very satisfied with the result of the treatment, patient given instruction to continue home exercise and we gave him instructions how to do it, patient will follow up in the pain clinic when necessary
== END ==
LOC: PNWHC3 13:37
PROVIDERS: ATTEND Specialist
DX: M47.816 Spondylosis without myelopathy or radiculopathy, lumbar region (principal); G89.29 Other chronic pain; Z88.5 Allergy status to narcotic agent; Z88.8 Allergy status to other drugs, medicaments and biological substances; Z91.018 Allergy to other foods
CPT/HCPCS: 99211

== ENCOUNTER → 2021-01-06 | Outpatient (CLI) | payer OTHER ==
[2021-01-06 13:54] LABS: Creatinine,Urine Random 119.6 mg/dL
[2021-01-06 19:19] LABS: Basophils # (A) 0.02 X 10*3/uL (0.00-0.10); Basophils % (A) 0.3 %; Eosinophils # (A) 0.07 X 10*3/uL (0.04-0.35); Eosinophils % (A) 1.1 %; HGB 11.9 g/dL (13.0-17.0); Lymphocytes # (A) 1.94 X 10*3/uL (0.90-5.00); Lymphocytes % (A) 29.8 %; MCH 30.5 pg (27.0-32.0); MCHC 33.1 g/dL (32.0-37.0); MCV 92.3 fL (80.0-97.0); Mean Platelet Volume 11.5 fL (9.5-12.2); Monocytes # (A) 0.45 X 10*3/uL (0.20-1.00); Monocytes % (A) 6.9 %; Neutrophils # (A) 3.99 X 10*3/uL (1.80-7.70); Neutrophils % (A) 61.3 %; Platelet Count 217 X 10*3/uL (140-440); RDW 13.5 % (11.5-14.5); WBC 6.51 X 10*3/uL (4.50-10.00)
[2021-01-06 20:46] LABS: % Iron Saturation 12.03 (15.00-50.00); African American GFR (CKD) 83.2 (60.0-200.0); Albumin 4.3 g/dL (3.8-4.9); Albumin/Globulin Ratio 1.64 (1.60-3.17); Anion Gap 14.9 mmol/L (4.00-12.00); BUN/Creat Ratio 15.59 Ratio (12.00-20.00); Blood Urea Nitrogen 17.3 mg/dL (9.0-27.0); Calcium 9.5 mg/dL (8.7-10.3); Carbon Dioxide 21.1 mmol/L (21.6-31.8); Globulin 2.7 g/dL (1.6-3.3); Magnesium 1.6 mg/dL (1.5-2.4); Non-African American GFR(CKD) 71.8 (60.0-200.0); Phosphorus 3.2 mg/dL (2.4-5.1); Potassium 4.3 mmol/L (3.5-5.5); Total Bilirubin 0.3 mg/dL (0.30-1.20); Uric Acid 7.7 mg/dL (3.7-8.7)
== END | disposition home or self-care (01) ==
LOC: LABWHC1 11:20
PROVIDERS: ATTEND Internal Medicine
DX: N18.2 Chronic kidney disease, stage 2 (mild) (principal); D64.9 Anemia, unspecified; M10.9 Gout, unspecified; E55.9 Vitamin D deficiency, unspecified; N25.81 Secondary hyperparathyroidism of renal origin; R80.9 Proteinuria, unspecified
CPT/HCPCS: 36415; 80053; 82306; 82570; 82728; 83540; 83550; 83735; 83970; 84100; 84156; 84550; 85025

== ENCOUNTER 2021-03-26 07:23 | Emergency (ER) | payer OTHER ==
[2021-03-26 07:34] VITALS: RESP 20
[2021-03-26] MEDS ORDERED: PENICILLIN VK 500MG STARTER 4 TAB BTL PO STA (08:28)
--- NOTE | 2021-03-26 08:31 | ED ---
General Adult HPI - General Chief complaint: Dental/Oral Stated complaint: Toothache Time Seen by Provider: 03/26/21 07:42 Source: patient Mode of arrival: ambulatory Limitations: no limitations - History of Present Illness Initial comments: 61-year-old male with a complicated past medical history presents to the emergency room for chief complaint of dental pain. The left maxillary area. States this started a couple days ago. Patient reports he broke a tooth just below that a couple years ago. Patient denies fevers. Patient states it is painful. He takes [place] and morphine for pain at home. Denies any difficulty swallowing. No trismus. No neck pain or stiffness. Patient has no other complaints at this time including shortness of breath, chest pain, abdominal pain, nausea or vomiting, headache, or visual changes. - Related Data Home Medications Medication Instructions Recorded Confirmed Lisinopril-Hctz 20-25 mg 1 tab PO QAM 09/22/13 12/07/20 [Zestoretic 20-25] Cyclobenzaprine [Flexeril] 10 mg PO TID PRN 10/15/13 12/07/20 Ergocalciferol [Vitamin D2 50,000 unit PO Q30D 12/12/16 12/07/20 (DRISDOL)] Nystatin 100,000Unit/gm Cream 1 applic TOPICAL BID PRN 12/12/16 12/07/20 [Mycostatin Cream] Omeprazole 20 mg PO QAM 12/12/16 12/07/20 Triamcinolone 0.1% Cream [Kenalog 1 applic TOPICAL BID PRN 12/12/16 12/07/20 0.1% Cream] HYDROcodone/APAP 10-325MG [[place] 1 tab PO BID PRN 04/29/18 12/07/20 10-325] Morphine Sulfate [Ms Contin] 15 mg PO Q12HR 09/02/19 12/07/20 Insulin Lispro [Insulin Lispro 10 units SQ AC-TID 12/08/19 12/07/20 Kwikpen U-100] Lisinopril-Hctz 20-25 mg 0.5 tab PO HS PRN 12/08/19 12/07/20 [Zestoretic 20-25] Metoprolol Succinate [Toprol XL] 25 mg PO HS 12/08/19 12/07/20 Cholecalciferol [Vitamin D3 (25 50 mcg PO DAILY 06/28/20 12/07/20 Mcg = 1000 Iu)] Clotrimazole Cream [Lotrimin Cream] 1 applic TOPICAL BID PRN 06/28/20 12/07/20 Ferrous Sulfate [Iron (65 MG 325 mg PO DAILY 06/28/20 12/07/20 Elemental)] Insulin Lispro [humaLOG Kwikpen] 12 unit SQ HS 06/28/20 12/07/20 Magnesium 250 mg PO DAILY 06/28/20 12/07/20 Tamsulosin HCl [Flomax] 0.4 mg PO HS 06/28/20 12/07/20 Insulin Glargine,Hum.rec.anlog 100 unit SQ HS 09/27/20 12/07/20 [Lantus Solostar Pen] metFORMIN HCL ER [Glucophage XR] 2,000 mg PO HS 09/27/20 12/07/20 Ascorbic Acid [Vitamin C] 1,000 mg PO DAILY 12/07/20 12/07/20 Cyanocobalamin (Vitamin B-12) 1,000 mcg PO DAILY 12/07/20 12/07/20 [Vitamin B-12] Zinc Gluconate [Zinc] 40 mg PO DAILY 12/07/20 12/07/20 Previous Rx's Medication Instructions Recorded Penicillin V Potassium [Pen Vee K] 500 mg PO Q6H 10 Days #40 tablet 03/26/21 Allergies Allergy/AdvReac Type Severity Reaction Status Date / Time tramadol HCl [From Ultram] Allergy Unknown Abdominal Verified 03/26/21 07:33 Pain, diarrhea, severe headache pregabalin [From Lyrica] AdvReac Unknown INCREASED Verified 03/26/21 07:33 DEPRESSION propoxyphene napsylate AdvReac Unknown LOSS OF Verified 03/26/21 07:33 [From Darvocet-N 100] COORDINATION artficial sweetners Allergy Diarrhea, Uncoded 03/26/21 07:33 headache ANTIDEPRESSANTS AdvReac STATES Uncoded 03/26/21 07:33 INCREASE DEPRESSION Review of Systems ROS Statement: Those systems with pertinent positive or pertinent negative responses have been documented in the HPI. ROS Other: All systems not noted in ROS Statement are negative. Past Medical History Past Medical History: Blood Disorder, Chest Pain / Angina, Diabetes Mellitus, Fibromyalgia, Hearing Disorder / Deafness, Hypertension, Musculoskeletal Disorder, Osteoarthritis (OA), Renal Disease, Skin Disorder, Sleep Apnea/CPAP/BIPAP Additional Past Medical History / Comment(s): MIGRAINES, DIVERTICULOSIS, HIATAL HERNIA, umbilical hernia, ATHLETES FOOT, RINGING IN EARS, DDD, yeast rash in armpits and groins, occ. urinary incontinence, Monoclonal Gammapathy of Undetermined Significance(MGUS). Hx cellulitis. Has cpap machine. Coivd 07/07, stage 3 renal disease History of Any Multi-Drug Resistant Organisms: None Reported Past Surgical History: Orthopedic Surgery Additional Past Surgical History / Comment(s): RIGHT ROTATOR CUFF, RT CARPAL TUNNEL, BILATERAL INGUINAL HERNIA REPAIRS, ARTHROSCOPY BILATERAL KNEES, RIGHT ELBOW CUBITAL ULNAR SURGERY, PREVIOUS PAIN CLINIC PROCEDURES. Past Anesthesia/Blood Transfusion Reactions: Previous Problems w/ Anesthesia, Family History of Problems w/ Anesthesia Additional Past Anesthesia/Blood Transfusion Reaction / Comment(s): STATES HE NEEDED MORE ANESTHESIA, " I have a high tolerance". Mother experienced memory issues after anesthesia "for a couple weeks". Past Psychological History: Anxiety, Depression, PTSD Smoking Status: Never smoker Past Alcohol Use History: None Reported Past Drug Use History: None Reported - Past Family History Mother Family Medical History: Deep Vein Thrombosis (DVT) Additional Family Medical History / Comment(s): Precancerous cells - uterine. Sister(s) Family Medical History: Cancer Additional Family Medical History / Comment(s): Skin Cancer. Father Family Medical History: Diabetes Mellitus Additional Family Medical History / Comment(s): Diverticular disease. General Exam Limitations: no limitations General appearance: alert, in no apparent distress Head exam: Present: atraumatic Eye exam: Present: normal appearance, PERRL, EOMI. Absent: scleral icterus, conjunctival injection ENT exam: Present: normal exam, normal oropharynx (poor dentition. several fractured teeth. mild erythema/edema to L maxillary area), mucous membranes moist, normal external ear exam Neck exam: Present: normal inspection, full ROM. Absent: tenderness Respiratory exam: Present: normal lung sounds bilaterally. Absent: respiratory distress, wheezes, rales Cardiovascular Exam: Present: regular rate, normal rhythm, normal heart sounds Course Vital Signs 03/26/21 07:31 Temperature 98.8 F Pulse Rate 118 H Respiratory 20 Rate Blood Pressure 167/78 O2 Sat by Pulse 97 Oximetry Medical Decision Making - Medical Decision Making Vitals are stable. Patient is well-appearing. Patient appears to have a dental infection. He'll be treated with penicillin. Patient given a dose here in the emergency room. Patient is already on [place] and morphine at home. Patient will follow-up with his doctor and return here for any worsening symptoms. Disposition Clinical Impression: Pain, dental Disposition: HOME SELF-CARE Condition: Good Instructions (If sedation given, give patient instructions): Toothache (ED) Additional Instructions: Please take penicillin as directed. Take your home pain medications for pain. Follow-up with your doctor. Return to the emergency room for any worsening symptoms. Prescriptions: Penicillin V Potassium [Pen Vee K] 500 mg PO Q6H 10 Days #40 tablet Is patient prescribed a controlled substance at d/c from ED?: No Referrals: Jagdish Palm DO [Primary Care Provider] - 1-2 days Time of Disposition: 08:30
[2021-03-26 09:37] VITALS: BP 154/76; PULSE 99; TEMP 98.6
== END 2021-03-26 09:37 | disposition home or self-care (01) ==
LOC: EC 07:23
DX: K08.89 Other specified disorders of teeth and supporting structures (principal); E11.9 Type 2 diabetes mellitus without complications; I10 Essential (primary) hypertension; M19.90 Unspecified osteoarthritis, unspecified site; F43.10 Post-traumatic stress disorder, unspecified; F41.9 Anxiety disorder, unspecified; F31.9 Bipolar disorder, unspecified; Z79.84 Long term (current) use of oral hypoglycemic drugs; Z79.4 Long term (current) use of insulin; Z79.899 Other long term (current) drug therapy
CPT/HCPCS: 99282

== ENCOUNTER → 2021-04-04 | Outpatient (CLI) | payer OTHER ==
--- NOTE | 2021-04-04 12:05 | US ---
EXAMINATION TYPE: US kidneys/renal and bladder DATE OF EXAM: 04/04/2021 COMPARISON: CT 01/06/20, US 12/09/19 CLINICAL HISTORY: N20.0 kidney stone. EXAM MEASUREMENTS: Right Kidney: 11.8 x 6.0 x 5.4 cm Left Kidney: 12.. x 5.7 x 5.1 cm Post Void Residual Volume: 40.4 mL Right Kidney: No hydronephrosis. hypoechoic area Mid pole as seen on previous US. This measures 2.9 x 2.4 cm. Left Kidney: No hydronephrosis or masses seen. 0.8 cm cyst lateral Bladder: No masses seen Bilateral Jets seen: Yes Normal Post Void Residual: Yes IMPRESSION: 1. Persistent hypoechoic area mid right kidney, follow-up exam in 6 months is recommended to assess s tability. 2. Small left renal cyst
== END | disposition home or self-care (01) ==
LOC: RADUSWWP 09:06
PROVIDERS: ATTEND Urology
DX: N28.1 Cyst of kidney, acquired (principal); N28.89 Other specified disorders of kidney and ureter
CPT/HCPCS: 76770

== ENCOUNTER 2021-04-19 03:33 | Emergency (ER) | payer OTHER ==
--- NOTE | 2021-04-19 04:51 | XR ---
EXAMINATION TYPE: XR wrist complete RT DATE OF EXAM: 04/19/2021 COMPARISON: NONE HISTORY: Wrist pain TECHNIQUE: 4 views FINDINGS: There are cystic changes in the scaphoid bone with some expansion. There is narrowing and s purring at the first carpometacarpal joint. There is no fracture nor dislocation. Distal radius and u identification clerk are intact. Metacarpals are intact. IMPRESSION: Expansile cystic changes in the scaphoid could relate to benign bone cyst. Also consider inflammatory arthritis such as gout. Osteoarthritis at the first carpometacarpal joint.
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
[2021-04-19] MEDS ORDERED: HYDROmorphone 1 MG/ML 1 ML SYRINGE IM STA (06:47)
[2021-04-19 07:10] VITALS: BP 129/79; PULSE 87; RESP 18; TEMP 98
== END 2021-04-19 07:09 | disposition home or self-care (01) ==
LOC: EC 03:33
DX: S62.001A Unspecified fracture of navicular [scaphoid] bone of right wrist, initial encounter for closed fracture (principal); I12.9 Hypertensive chronic kidney disease with stage 1 through stage 4 chronic kidney disease, or unspecified chronic kidney disease; E11.22 Type 2 diabetes mellitus with diabetic chronic kidney disease; N18.30 Chronic kidney disease, stage 3 unspecified; M79.7 Fibromyalgia; M19.90 Unspecified osteoarthritis, unspecified site; F41.9 Anxiety disorder, unspecified; F31.0 Bipolar disorder, current episode hypomanic; Z79.4 Long term (current) use of insulin; Z79.84 Long term (current) use of oral hypoglycemic drugs; Z88.1 Allergy status to other antibiotic agents; W50.0XXA Accidental hit or strike by another person, initial encounter
CPT/HCPCS: 99283; 96372; 29125; 73110; J1170

== ENCOUNTER 2021-04-20 11:23 | Emergency (ER) | payer OTHER ==
[2021-04-20 11:27] VITALS: BP 153/82; PULSE 110; RESP 22; TEMP 98.4
[2021-04-20] MEDS ORDERED: HYDROmorphone 1 MG/ML 1 ML SYRINGE IM STA (11:43)
--- NOTE | 2021-04-20 11:49 | ED ---
General Adult HPI - General Chief complaint: Extremity Injury, Upper Stated complaint: Rt Hand Injury/Revisit Time Seen by Provider: 04/20/21 11:29 Source: patient, RN notes reviewed, old records reviewed Mode of arrival: ambulatory Limitations: no limitations - History of Present Illness Initial comments: 61 -year-old male presenting for reevaluation of right thumb injury. Patient was seen in the emergency department yesterday. He had x-rays of the wrist and hand performed. There was some cystic change within the scaphoid bone and given the tenderness on palpation and injury he was placed in a thumb spica splint for possible scaphoid fracture he was given orthopedic follow-up. He did contact the orthopedic surgeons were unable to see him due to an insurance issue. He states that his pain is severe and that his normal [place] and morphine at home is not helping his pain. No fever. No other injury. The original injury was a hyperextension injury to the right thumb. - Related Data Home Medications Medication Instructions Recorded Confirmed Lisinopril-Hctz 20-25 mg 1 tab PO QAM 09/22/13 12/07/20 [Zestoretic 20-25] Cyclobenzaprine [Flexeril] 10 mg PO TID PRN 10/15/13 12/07/20 Ergocalciferol [Vitamin D2 50,000 unit PO Q30D 12/12/16 12/07/20 (DRISDOL)] Nystatin 100,000Unit/gm Cream 1 applic TOPICAL BID PRN 12/12/16 12/07/20 [Mycostatin Cream] Omeprazole 20 mg PO QAM 12/12/16 12/07/20 Triamcinolone 0.1% Cream [Kenalog 1 applic TOPICAL BID PRN 12/12/16 12/07/20 0.1% Cream] HYDROcodone/APAP 10-325MG [[place] 1 tab PO BID PRN 04/29/18 12/07/20 10-325] Morphine Sulfate [Ms Contin] 15 mg PO Q12HR 09/02/19 12/07/20 Insulin Lispro [Insulin Lispro 10 units SQ AC-TID 12/08/19 12/07/20 Kwikpen U-100] Lisinopril-Hctz 20-25 mg 0.5 tab PO HS PRN 12/08/19 12/07/20 [Zestoretic 20-25] Metoprolol Succinate [Toprol XL] 25 mg PO HS 12/08/19 12/07/20 Cholecalciferol [Vitamin D3 (25 50 mcg PO DAILY 06/28/20 12/07/20 Mcg = 1000 Iu)] Clotrimazole Cream [Lotrimin Cream] 1 applic TOPICAL BID PRN 06/28/20 12/07/20 Ferrous Sulfate [Iron (65 MG 325 mg PO DAILY 06/28/20 12/07/20 Elemental)] Insulin Lispro [humaLOG Kwikpen] 12 unit SQ HS 06/28/20 12/07/20 Magnesium 250 mg PO DAILY 06/28/20 12/07/20 Tamsulosin HCl [Flomax] 0.4 mg PO HS 06/28/20 12/07/20 Insulin Glargine,Hum.rec.anlog 100 unit SQ HS 09/27/20 12/07/20 [Lantus Solostar Pen] metFORMIN HCL ER [Glucophage XR] 2,000 mg PO HS 09/27/20 12/07/20 Ascorbic Acid [Vitamin C] 1,000 mg PO DAILY 12/07/20 12/07/20 Cyanocobalamin (Vitamin B-12) 1,000 mcg PO DAILY 12/07/20 12/07/20 [Vitamin B-12] Zinc Gluconate [Zinc] 40 mg PO DAILY 12/07/20 12/07/20 Previous Rx's Medication Instructions Recorded Penicillin V Potassium [Pen Vee K] 500 mg PO Q6H 10 Days #40 tablet 03/26/21 Sulfamethox-Tmp 800-160Mg [Bactrim 1 each PO Q12HR #20 tab 03/27/21 DS 800-160 mg] Allergies Allergy/AdvReac Type Severity Reaction Status Date / Time tramadol HCl [From Ultram] Allergy Unknown Abdominal Verified 04/20/21 11:27 Pain, diarrhea, severe headache pregabalin [From Lyrica] AdvReac Unknown INCREASED Verified 04/20/21 11:27 DEPRESSION propoxyphene napsylate AdvReac Unknown LOSS OF Verified 04/20/21 11:27 [From Darvocet-N 100] COORDINATION artficial sweetners Allergy Diarrhea, Uncoded 04/20/21 11:27 headache ANTIDEPRESSANTS AdvReac STATES Uncoded 04/20/21 11:27 INCREASE DEPRESSION Review of Systems ROS Statement: Those systems with pertinent positive or pertinent negative responses have been documented in the HPI. ROS Other: All systems not noted in ROS Statement are negative. Past Medical History Past Medical History: Blood Disorder, Chest Pain / Angina, Diabetes Mellitus, Fibromyalgia, Hearing Disorder / Deafness, Hypertension, Musculoskeletal Disorder, Osteoarthritis (OA), Renal Disease, Skin Disorder, Sleep Apnea/CPAP/BIPAP Additional Past Medical History / Comment(s): MIGRAINES, DIVERTICULOSIS, HIATAL HERNIA, umbilical hernia, ATHLETES FOOT, RINGING IN EARS, DDD, yeast rash in armpits and groins, occ. urinary incontinence, Monoclonal Gammapathy of Undetermined Significance(MGUS). Hx cellulitis. Has cpap machine. Coivd 07/07, stage 3 renal disease History of Any Multi-Drug Resistant Organisms: None Reported Past Surgical History: Orthopedic Surgery Additional Past Surgical History / Comment(s): RIGHT ROTATOR CUFF, RT CARPAL TUNNEL, BILATERAL INGUINAL HERNIA REPAIRS, ARTHROSCOPY BILATERAL KNEES, RIGHT ELBOW CUBITAL ULNAR SURGERY, PREVIOUS PAIN CLINIC PROCEDURES. Past Anesthesia/Blood Transfusion Reactions: Previous Problems w/ Anesthesia, Family History of Problems w/ Anesthesia Additional Past Anesthesia/Blood Transfusion Reaction / Comment(s): STATES HE NE EDED MORE ANESTHESIA, " I have a high tolerance". Mother experienced memory issues after anesthesia "for a couple weeks". Past Psychological History: Anxiety, Depression, PTSD Smoking Status: Never smoker Past Alcohol Use History: None Reported Past Drug Use History: None Reported - Past Family History Mother Family Medical History: Deep Vein Thrombosis (DVT) Additional Family Medical History / Comment(s): Precancerous cells - uterine. Sister(s) Family Medical History: Cancer Additional Family Medical History / Comment(s): Skin Cancer. Father Family Medical History: Diabetes Mellitus Additional Family Medical History / Comment(s): Diverticular disease. General Exam Limitations: no limitations General appearance: alert, in no apparent distress Head exam: Present: atraumatic, normocephalic Eye exam: Present: normal appearance, PERRL ENT exam: Present: normal exam Neck exam: Present: normal inspection. Absent: tenderness, meningismus Respiratory exam: Present: normal lung sounds bilaterally. Absent: respiratory distress, wheezes Cardiovascular Exam: Present: regular rate, normal rhythm GI/Abdominal exam: Present: soft. Absent: distended Extremities exam: Present: other (Right forearm and wrist. Distal pulses intact, normal cap refill in all digits. There is mild soft tissue swelling. There is tenderness across the dorsum of the wrist and tenderness over the scaphoid. Range of motion of the thumb is quite painful.). Absent: full ROM Neurological exam: Present: alert, oriented X3 Psychiatric exam: Present: normal affect, normal mood Course Vital Signs 04/20/21 11:25 Temperature 98.4 F Pulse Rate 110 H Respiratory 22 Rate Blood Pressure 153/82 O2 Sat by Pulse 98 Oximetry Medical Decision Making - Medical Decision Making 61-year-old male with increased pain after thumb injury and possible scaphoid fracture. Patient given intramuscular Dilaudid in the emergency Department for acute pain. He has multiple pain medications at home. I did unwrap the splint and there is no external signs of trauma, minimal soft tissue swelling. The anatomy is preserved. Capillary refill and pulses are preserved. X-rays reviewed showing a cystic changes to the scaphoid without definitive acute fracture. Patient should continue to be immobilized in a thumb spica awaiting orthopedic evaluation. He states that he does have a history with advanced orthopedics and he is given referral. He should take his normal. Normal pain medication at home and ice and elevate the right wrist. Disposition Clinical Impression: Thumb sprain Disposition: HOME SELF-CARE Condition: Fair Instructions (If sedation given, give patient instructions): Hand Sprain (ED) Is patient prescribed a controlled substance at d/c from ED?: No Referrals: Jagdish Palm DO [Primary Care Provider] - 1-2 days Maximus Cortes DO [Doctor of Osteopathic Medicine] - 1-2 days Time of Disposition: 11:45
== END 2021-04-20 12:07 | disposition home or self-care (01) ==
LOC: EC 11:23
DX: S63.601A Unspecified sprain of right thumb, initial encounter (principal); E11.22 Type 2 diabetes mellitus with diabetic chronic kidney disease; I12.9 Hypertensive chronic kidney disease with stage 1 through stage 4 chronic kidney disease, or unspecified chronic kidney disease; N18.30 Chronic kidney disease, stage 3 unspecified; M19.90 Unspecified osteoarthritis, unspecified site; F32.A Depression, unspecified; F41.9 Anxiety disorder, unspecified; M79.7 Fibromyalgia; Z79.4 Long term (current) use of insulin; Z79.84 Long term (current) use of oral hypoglycemic drugs; Z79.899 Other long term (current) drug therapy; X50.1XXA Overexertion from prolonged static or awkward postures, initial encounter
CPT/HCPCS: 99283; 96372; J1170

== ENCOUNTER → 2021-06-10 | Outpatient (CLI) | payer OTHER ==
[2021-06-10 14:14] LABS: HGB 11.4 g/dL (13.0-17.0); MCH 29.8 pg (27.0-32.0); MCHC 31.7 g/dL (32.0-37.0); MCV 94.2 fL (80.0-97.0); Mean Platelet Volume 11.5 fL (9.5-12.2); NRBC Per 100 WBC 0 /100 WBCS (0.0-0.0); Platelet Count 230 X 10*3/uL (140-440); RBC 3.82 X 10*6/uL (4.40-5.60); RDW 13.3 % (11.5-14.5); WBC 6.76 X 10*3/uL (4.50-10.00)
[2021-06-10 14:32] LABS: ALT 19 U/L (10-49); AST 13 U/L (14-35); African American GFR (CKD) 75.2 (60.0-200.0); Albumin 4.3 g/dL (3.8-4.9); Albumin/Globulin Ratio 1.48 (1.60-3.17); Alkaline Phosphatase 51 U/L (41-126); BUN/Creat Ratio 14.42 Ratio (12.00-20.00); Blood Urea Nitrogen 17.3 mg/dL (9.0-27.0); Calcium 9.2 mg/dL (8.7-10.3); Carbon Dioxide 26.7 mmol/L (20.0-27.5); Chloride 95 mmol/L (96-109); Globulin 2.9 g/dL (1.6-3.3); Glucose 148 mg/dL (70-110); Iron 41 ug/dL (65-175); Non-African American GFR(CKD) 64.9 (60.0-200.0); Potassium 4.4 mmol/L (3.5-5.5); Sodium 134 mmol/L (135-145); Total Bilirubin <0.15 mg/dL (0.30-1.20); Total Iron Binding Capacity 305 ug/dL (228-460); Total Protein 7.2 g/dL (6.2-8.2); Uric Acid 7.3 mg/dL (3.7-8.7)
[2021-06-10 21:25] LABS: Microalbumin Creatinine Ratio <30 mg/g Creat (0-30)
== END | disposition home or self-care (01) ==
LOC: LABWHC1 09:10
PROVIDERS: ATTEND Nurse Practitioner Family
DX: E55.9 Vitamin D deficiency, unspecified (principal); N18.2 Chronic kidney disease, stage 2 (mild); N25.81 Secondary hyperparathyroidism of renal origin; D64.9 Anemia, unspecified; M10.9 Gout, unspecified; R80.9 Proteinuria, unspecified
CPT/HCPCS: 36415; 80053; 82043; 82306; 82570; 82728; 83540; 83550; 83735; 83970; 84100; 84550; 85027

== ENCOUNTER → 2021-10-27 | Outpatient (CLI) | payer OTHER ==
--- NOTE | 2021-10-27 10:47 | CT ---
EXAMINATION TYPE: CT soft tissue neck w con CT DLP: 814 mGycm, Automated exposure control for dose reduction was used. DATE OF EXAM: 10/27/2021 10:30 AM COMPARISON: None. CLINICAL INDICATION:Male, 61 years old with history of R22.9 Localized swelling, mass and lump;, Mass , lump right side neck TECHNIQUE: Standard enhanced CT of the neck. Axial sections with coronal and sagittal reformats were obtained. Palpable marker placed at the discretion of the patient. Contrast used:70 mL of Isovue 300 with IV Contrast, Oral contrast used: none. FINDINGS: Brain: Visualized portions are grossly unremarkable. Orbits: Unremarkable Sinuses: Grossly unremarkable. Spaces of the neck: Clear and symmetric. Musculoskeletal: No acute osseous pathology. Lymph nodes: Multiple nonenlarged lymph nodes are seen along both anterior chains of the neck. Vascular structures: Visualized major arteries are patent without evidence of aneurysm. Thoracic Inlet/airway: Airway is patent. The lung apices are clear. Soft tissues/Thyroid: Thyroid and remainder of the soft tissues are unremarkable. Palpable marker is overlying the right sternocleidomastoid muscle. There is no evidence of mass or organizing fluid scott ection. IMPRESSION 1. No definite evidence for abscess or significant abnormality at the area of palpable marker. The st ernocleidomastoid muscle is immediately deep to this area.
== END | disposition home or self-care (01) ==
LOC: RADCTMAIN 09:05
PROVIDERS: ATTEND Family Medicine
DX: R22.1 Localized swelling, mass and lump, neck (principal)
CPT/HCPCS: 82565; 84520; 70491; 36415; Q9967

== ENCOUNTER → 2022-01-09 | Outpatient (CLI) | payer OTHER ==
[2022-01-09 14:50] LABS: Basophils # (A) 0.02 X 10*3/uL (0.00-0.10); Basophils % (A) 0.3 %; Eosinophils # (A) 0.09 X 10*3/uL (0.04-0.35); Eosinophils % (A) 1.4 %; HCT 39.4 % (39.6-50.0); HGB 13.1 g/dL (13.0-17.0); Immature Grans, Automated 0.5 %; Lymphocytes # (A) 2.18 X 10*3/uL (0.90-5.00); Lymphocytes % (A) 34.2 %; MCH 30.7 pg (27.0-32.0); MCHC 33.2 g/dL (32.0-37.0); MCV 92.3 fL (80.0-97.0); Mean Platelet Volume 11.7 fL (9.5-12.2); Monocytes # (A) 0.42 X 10*3/uL (0.20-1.00); Monocytes % (A) 6.6 %; NRBC Per 100 WBC 0 /100 WBCS (0.0-0.0); Neutrophils # (A) 3.63 X 10*3/uL (1.80-7.70); Platelet Count 203 X 10*3/uL (140-440); RBC 4.27 X 10*6/uL (4.40-5.60); RDW 13.7 % (11.5-14.5); WBC 6.37 X 10*3/uL (4.50-10.00)
[2022-01-09 16:09] LABS: % Iron Saturation 11.99 (15.00-50.00); African American GFR (CKD) 79.2 (60.0-200.0); Albumin 4.4 g/dL (3.8-4.9); Albumin/Globulin Ratio 1.57 (1.60-3.17); Anion Gap 8.6 mmol/L (10.00-18.00); BUN/Creat Ratio 14.7 Ratio (12.00-20.00); Blood Urea Nitrogen 16.9 mg/dL (9.0-27.0); Calcium 9.2 mg/dL (8.7-10.3); Carbon Dioxide 28.9 mmol/L (20.0-27.5); Globulin 2.8 g/dL (1.6-3.3); Magnesium 1.8 mg/dL (1.5-2.4); Non-African American GFR(CKD) 68.3 (60.0-200.0); Phosphorus 2.9 mg/dL (2.4-5.1); Potassium 4.2 mmol/L (3.5-5.5); Total Bilirubin 0.5 mg/dL (0.30-1.20); Total Protein 7.2 g/dL (6.2-8.2); Uric Acid 7.8 mg/dL (3.7-8.7)
[2022-01-09 20:58] LABS: Microalbumin Creatinine Ratio <30 mg/g Creat (0-30); Urine Creatinine 20.2 mg/dL (39.0-259.0)
== END | disposition home or self-care (01) ==
LOC: LABWHC1 10:41
PROVIDERS: ATTEND Nurse Practitioner Family
DX: N18.2 Chronic kidney disease, stage 2 (mild) (principal); D63.1 Anemia in chronic kidney disease; M10.9 Gout, unspecified; R80.9 Proteinuria, unspecified
CPT/HCPCS: 36415; 80053; 82043; 82570; 82728; 83540; 83550; 83735; 84100; 84550; 85025

== ENCOUNTER → 2022-01-11 | Outpatient (CLI) | payer OTHER ==
--- NOTE | 2022-01-11 14:49 | US ---
EXAMINATION TYPE: US kidneys/renal and bladder DATE OF EXAM: 01/11/2022 COMPARISON: 04/04/2021 ultrasound CLINICAL HISTORY: N28.1 RENAL CYST. EXAM MEASUREMENTS: Right Kidney: 10.4 x 5.4 x 5.5 cm Left Kidney: 11.1 x 4.7 x 5.6 cm Right Kidney: No hydronephrosis or masses seen Left Kidney: No hydronephrosis or masses seen Bladder: wnl Bilateral Jets seen: yes Previous right renal isoechoic area is not reidentified on the current examination. Previous left tin y renal cortical cyst appears stable and 0.8 cm. IMPRESSION: 1. No suspicious interval change. 2. Stable small left renal cyst 3. Non identification of previous isoechoic area right kidney
== END | disposition home or self-care (01) ==
LOC: RADUSWWP 14:07
PROVIDERS: ATTEND Urology
DX: N28.1 Cyst of kidney, acquired (principal)
CPT/HCPCS: 76770

== ENCOUNTER 2022-09-11 22:42 | Emergency (ER) | payer OTHER ==
[2022-09-11 22:56] VITALS: TEMP 98
--- NOTE | 2022-09-11 23:40 | ED ---
Eye Problem HPI - General Chief complaint: Eye Problems Stated complaint: Left eye vision problems, Headaches Time Seen by Provider: 09/11/22 23:09 Source: patient, RN notes reviewed Mode of arrival: ambulatory Limitations: no limitations - History of Present Illness Initial comments: This is a 62 year old male who presents to the emergency department for left eye problems. States that 3 days ago he started to develop black floaters in his vision on the left side. Today while driving, he started to notice bright spots in his vision as well. Denies any difficulty seeing. There is no pain associated with this. Prior to 3 days ago, he did not experience anything like this. He has not followed up with ophthalmology in over a year. He is supposed to go on a long drive to [place] tomorrow and wanted to be evaluated beforehand. Denies any fevers, chills, sore throat, cough, dyspnea, chest pain, palpitations, abdominal pain, nausea, vomiting, diarrhea, back pain, or headaches. - Related Data Home Medications Medication Instructions Recorded Confirmed Lisinopril-Hctz 20-25 mg 1 tab PO QAM 09/22/13 05/04/22 [Zestoretic 20-25] Cyclobenzaprine [Flexeril] 10 mg PO TID PRN 10/15/13 05/04/22 Ergocalciferol [Vitamin D2 50,000 unit PO Q30D 12/12/16 05/04/22 (DRISDOL)] Nystatin 100,000Unit/gm Cream 1 applic TOPICAL BID PRN 12/12/16 05/04/22 [Mycostatin Cream] Omeprazole 20 mg PO QAM 12/12/16 05/04/22 Triamcinolone 0.1% Cream [Kenalog 1 applic TOPICAL BID PRN 12/12/16 05/04/22 0.1% Cream] HYDROcodone/APAP 10-325MG [[place] 1 tab PO BID PRN 04/29/18 12/07/20 10-325] Morphine Sulfate [Ms Contin] 15 mg PO Q12HR 09/02/19 05/04/22 Insulin Lispro [Insulin Lispro 10 units SQ AC-TID 12/08/19 05/04/22 Kwikpen U-100] Lisinopril-Hctz 20-25 mg 0.5 tab PO HS PRN 12/08/19 05/04/22 [Zestoretic 20-25] Metoprolol Succinate [Toprol XL] 25 mg PO HS 12/08/19 05/04/22 Cholecalciferol [Vitamin D3 (25 50 mcg PO DAILY 06/28/20 05/04/22 Mcg = 1000 Iu)] Clotrimazole Cream [Lotrimin Cream] 1 applic TOPICAL BID PRN 06/28/20 05/04/22 Ferrous Sulfate [Iron (65 MG 325 mg PO DAILY 06/28/20 05/04/22 Elemental)] Insulin Lispro [humaLOG Kwikpen] 12 unit SQ HS 06/28/20 05/04/22 Magnesium 250 mg PO DAILY 06/28/20 05/04/22 Tamsulosin HCl [Flomax] 0.4 mg PO HS 06/28/20 05/04/22 Insulin Glargine,Hum.rec.anlog 100 unit SQ HS 09/27/20 05/04/22 [Lantus Solostar Pen] metFORMIN HCL ER [Glucophage XR] 2,000 mg PO HS 09/27/20 05/04/22 Ascorbic Acid [Vitamin C] 1,000 mg PO DAILY 12/07/20 05/04/22 Cyanocobalamin (Vitamin B-12) 1,000 mcg PO DAILY 12/07/20 05/04/22 [Vitamin B-12] Zinc Gluconate [Zinc] 40 mg PO DAILY 12/07/20 05/04/22 Previous Rx's Medication Instructions Recorded Penicillin V Potassium [Pen Vee K] 500 mg PO Q6H 10 Days #40 tablet 03/26/21 Sulfamethox-Tmp 800-160Mg [Bactrim 1 each PO Q12HR #20 tab 03/27/21 DS 800-160 mg] Allergies Allergy/AdvReac Type Severity Reaction Status Date / Time tramadol HCl [From Ultram] Allergy Unknown Abdominal Verified 09/11/22 22:56 Pain, diarrhea, severe headache pregabalin [From Lyrica] AdvReac Unknown INCREASED Verified 09/11/22 22:56 DEPRESSION propoxyphene napsylate AdvReac Unknown LOSS OF Verified 09/11/22 22:56 [From Darvocet-N 100] COORDINATION artficial sweetners Allergy Diarrhea, Uncoded 09/11/22 22:56 headache ANTIDEPRESSANTS AdvReac STATES Uncoded 09/11/22 22:56 INCREASE DEPRESSION Review of Systems ROS Statement: Those systems with pertinent positive or pertinent negative responses have been documented in the HPI. ROS Other: All systems not noted in ROS Statement are negative. Past Medical History Past Medical History: Blood Disorder, Chest Pain / Angina, Diabetes Mellitus, Fibromyalgia, Hearing Disorder / Deafness, Hypertension, Musculoskeletal Disorder, Osteoarthritis (OA), Renal Disease, Skin Disorder, Sleep Apnea/CPAP/BIPAP Additional Past Medical History / Comment(s): MIGRAINES, DIVERTICULOSIS, HIATAL HERNIA, umbilical hernia, ATHLETES FOOT, RINGING IN EARS, DDD, yeast rash in armpits and groins, occ. urinary incontinence, Monoclonal Gammapathy of Undetermined Significance(MGUS). Hx cellulitis. Has cpap machine. Coivd 07/07, stage 3 renal disease History of Any Multi-Drug Resistant Organisms: None Reported Past Surgical History: Orthopedic Surgery Additional Past Surgical History / Comment(s): RIGHT ROTATOR CUFF, RT CARPAL TUNNEL, BILATERAL INGUINAL HERNIA REPAIRS, ARTHROSCOPY BILATERAL KNEES, RIGHT ELBOW CUBITAL ULNAR SURGERY, PREVIOUS PAIN CLINIC PROCEDURES. Past Anesthesia/Blood Transfusion Reactions: Previous Problems w/ Anesthesia, Family History of Problems w/ Anesthesia Additional Past Anesthesia/Blood Transfusion Reaction / Comment(s): STATES HE NEEDED MORE ANESTHESIA, " I have a high tolerance". Mother experienced memory issues after anesthesia "for a couple weeks". Past Psychological History: Anxiety, Depression, PTSD Smoking Status: Never smoker Past Alcohol Use History: None Reported Past Drug Use History: Marijuana - Past Family History Mother Family Medical History: Deep Vein Thrombosis (DVT) Additional Family Medical History / Comment(s): Precancerous cells - uterine. Sister(s) Family Medical History: Cancer Additional Family Medical History / Comment(s): Skin Cancer. Father Family Medical History: Diabetes Mellitus Additional Family Medical History / Comment(s): Diverticular disease. General Exam Limitations: no limitations General appearance: alert, in no apparent distress Head exam: Present: atraumatic, normocephalic, normal inspection Eye exam: Present: normal appearance, PERRL, EOMI. Absent: scleral icterus, conjunctival injection, periorbital swelling Pupils: Present: normal accommodation Expanded Visual acuity (R) = 20/: 70 Visual acuity (L) = 20/: 50 With correction: No IOP (R) in mmH IOP (L) in mmH IOP measured with: [place] Respiratory exam: Present: normal lung sounds bilaterally. Absent: respiratory distress, wheezes, rales, rhonchi, stridor Cardiovascular Exam: Present: regular rate, normal rhythm, normal heart sounds. Absent: systolic murmur, diastolic murmur, rubs, gallop, clicks Neurological exam: Present: alert, oriented X3, CN II-XII intact Psychiatric exam: Present: normal affect, normal mood Skin exam: Present: warm, dry, intact, normal color. Absent: rash Course Vital Signs 09/11/22 09/11/22 09/12/22 22:49 23:14 00:36 Temperature 98 F Pulse Rate 103 H 96 79 Respiratory 18 18 16 Rate Blood Pressure 142/89 140/79 108/73 O2 Sat by Pulse 95 96 98 Oximetry Medical Decision Making - Medical Decision Making This is a 62-year-old male who presents to the emergency department for visual changes. Was pt. sent in by a medical professional or institution? @ -No Did you speak to anyone other than the patient for history? @ -No Did you review nursing and triage notes? @ -Yes, and I agree, it is accurate with regards to the patient's symptoms. Were old charts reviewed? @ -No Differential Diagnosis? @ -Differential Visual Changes: Retinal detachment, retinal vein occlusion, retinal artery occlusion, retinoschisis, uveitis, vitreous detachment, this is not meant to be an all- inclusive list. EKG interpreted by me (3pts min.)? @ -Not obtained X-rays interpreted by me (1pt min.)? @ -Not obtained CT interpreted by me (1pt min.)? @ -Not obtained U/S interpreted by me (1pt. min.)? @ -Not obtained What testing was considered but not performed? (CT, X-rays, U/S, labs)? Why? @ -None What meds were considered but not given? Why? @ -None Did you discuss the management of the patient with other professionals? @ -No Did you reconcile home meds? @ -No Was smoking cessation discussed for >3mins.? @ -No Was critical care preformed (if so, how long)? @ -No Were there social determinants of health that impacted care today? How? (Homelessness, low income, unemployed, alcoholism, drug addiction, transportation, low edu. Level, literacy, decrease access to med. care, long term, rehab)? @ -No Was there de-escalation of care discussed even if they declined? (Discuss DNR or withdrawal of care, Hospice)? @ -No What co-morbidities impacted this encounter? (DM, HTN, Smoking, COPD, CAD, Cancer, CVA, Hep., AIDS, mental health diagnosis, sleep apnea, morbid obesity)? @ -DM, HTN Was patient admitted / discharged? @ -Discharged. Case discussed with ED attending, Dr. Frias, who advised check ing visual acuity and eye pressures. If those were normal, to discharge the patient home with ophthalmology follow up in the morning. Visual acuity is as follows - L:20/50 R:20/70 B:20/50, indicating his vision is actually better in the affected eye. IOP was 21 on the left and 20 on the right. Discussed with the patient that from our standpoint, he can be discharged home. However, there is the possibility of a retinal detachment or other acute process that may need intervention by ophthalmology. I strongly encouraged him to follow up with them first thing in the morning. However, the patient states that he is going on a trip tomorrow and cannot follow up with them for a week. We discussed risks of delayed follow-up including permanent vision loss and possible blindness. Patient expresses understanding. He was subsequently given very strict return parameters and advised that if this worsens he should go to the nearest emergency department while he is on his trip. He will otherwise contact his business management specialist for an appointment as soon as he returns. Undiagnosed new problem with uncertain prognosis? @ -None Drug Therapy requiring intensive monitoring for toxicity (Heparin, Nitro, Insulin, Cardizem)? @ -None Were any procedures done? @ -None Diagnosis/symptom? @ -Visual changes Acute, or Chronic, or Acute on Chronic? @ -Acute Uncomplicated (without systemic symptoms) or Complicated (systemic symptoms)? @ -Uncomplicated Side effects of treatment? @ -None Exacerbation, Progression, or Severe Exacerbation] @ -Not applicable Poses a threat to life or bodily function? @ -This will depend on the cause, which is not clear at this time. Return precautions reviewed in depth, the patient is instructed to return to the emergency department with any new, worsening, or concerning symptoms. Patient verbalized understanding. This case was discussed in detail with the attending ED physician, Dr. Frias. Presentation, findings, and treatment plan discussed in detail as well. - Lab Data Result diagrams: 09/12/22 00:38 09/12/22 00:33 Lab Results 09/12/22 09/12/22 Range/Units 00:33 00:38 WBC 8.0 (3.8-10.6) k/uL RBC 4.84 (4.30-5.90) m/uL Hgb 15.4 (13.0-17.5) gm/dL Hct 47.4 (39.0-53.0) % MCV 98.0 (80.0-100.0) fL MCH 31.9 (25.0-35.0) pg MCHC 32.5 (31.0-37.0) g/dL RDW 13.5 (11.5-15.5) % Plt Count 199 (150-450) k/uL MPV 9.7 Neutrophils % 64 % Lymphocytes % 25 % Monocytes % 7 % Eosinophils % 2 % Basophils % 0 % Neutrophils # 5.1 (1.3-7.7) k/uL Lymphocytes # 2.0 (1.0-4.8) k/uL Monocytes # 0.5 (0-1.0) k/uL Eosinophils # 0.2 (0-0.7) k/uL Basophils # 0.0 (0-0.2) k/uL Sodium 131 L (137-145) mmol/L Potassium 5.6 H (3.5-5.1) mmol/L Chloride 98 (98-107) mmol/L Carbon Dioxide 23 (22-30) mmol/L Anion Gap 10 mmol/L BUN 32 H (9-20) mg/dL Creatinine 1.11 (0.66-1.25) mg/dL Est GFR (CKD-EPI)AfAm 82 (>60 ml/min/1.73 sqM) Est GFR (CKD-EPI)NonAf 71 (>60 ml/min/1.73 sqM) Glucose 149 H (74-99) mg/dL Calcium 10.1 (8.4-10.2) mg/dL Total Bilirubin 1.4 H (0.2-1.3) mg/dL AST 45 (17-59) U/L ALT 28 (4-49) U/L Alkaline Phosphatase 36 L (38-126) U/L C-Reactive Protein 0.7 (<1.0) mg/dL Total Protein 8.2 (6.3-8.2) g/dL Albumin 4.6 (3.5-5.0) g/dL Disposition Clinical Impression: Visual changes Disposition: HOME SELF-CARE Instructions (If sedation given, give patient instructions): Visual Floaters (ED) Additional Instructions: Return to the emergency department with any new, worsening, or concerning symptoms. Try to follow-up with your business management specialist as soon as possible. Is patient prescribed a controlled substance at d/c from ED?: No Referrals: Jadgish Palm DO [Primary Care Provider] - 1-2 days
[2022-09-12 00:37] VITALS: BP 108/73; PULSE 79; RESP 16
[2022-09-12 00:54] LABS: Basophils % (A) 0 %; Eosinophils # (A) 0.2 k/uL (0-0.7); Eosinophils % (A) 2 %; HCT 47.4 % (39.0-53.0); HGB 15.4 gm/dL (13.0-17.5); Lymphocytes % (A) 25 %; MCH 31.9 pg (25.0-35.0); MCHC 32.5 g/dL (31.0-37.0); Mean Platelet Volume 9.7; Monocytes # (A) 0.5 k/uL (0-1.0); Monocytes % (A) 7 %; Neutrophils # (A) 5.1 k/uL (1.3-7.7); Neutrophils % (A) 64 %; Platelet Count 199 k/uL (150-450); RBC 4.84 m/uL (4.30-5.90); RDW 13.5 % (11.5-15.5)
[2022-09-12 01:02] LABS: ALT 28 U/L (4-49); AST 45 U/L (17-59); African American GFR (CKD) 82 (>60 ml/min/1.73 sqM); Albumin 4.6 g/dL (3.5-5.0); Alkaline Phosphatase 36 U/L (38-126); Anion Gap 10 mmol/L; Blood Urea Nitrogen 32 mg/dL (9-20); C Reactive Protein 0.7 mg/dL (<1.0); Calcium 10.1 mg/dL (8.4-10.2); Carbon Dioxide 23 mmol/L (22-30); Chloride 98 mmol/L (98-107); Glucose 149 mg/dL (74-99); Non-African American GFR(CKD) 71 (>60 ml/min/1.73 sqM); Sodium 131 mmol/L (137-145); Total Bilirubin 1.4 mg/dL (0.2-1.3); Total Protein 8.2 g/dL (6.3-8.2)
[2022-09-12 01:08] LABS: INR 0.9 (<1.2); Prothrombin Time 9.8 sec (9.0-12.0)
[2022-09-12 01:22] LABS: Potassium 5.6 mmol/L (3.5-5.1)
== END 2022-09-12 00:37 | disposition home or self-care (01) ==
LOC: EC 22:42
DX: H53.9 Unspecified visual disturbance (principal); E11.9 Type 2 diabetes mellitus without complications; I10 Essential (primary) hypertension; M19.90 Unspecified osteoarthritis, unspecified site; F41.9 Anxiety disorder, unspecified; F32.A Depression, unspecified; F12.90 Cannabis use, unspecified, uncomplicated; Z88.8 Allergy status to other drugs, medicaments and biological substances; Z91.02 Food additives allergy status; Z79.4 Long term (current) use of insulin; Z79.84 Long term (current) use of oral hypoglycemic drugs; Z79.899 Other long term (current) drug therapy
CPT/HCPCS: 36415; 80053; 85025; 85610; 86140; 99284

== ENCOUNTER → 2022-11-03 | Outpatient (CLI) | payer OTHER ==
[2022-11-03 16:21] LABS: Appearance,Urine Clear (Clear); Bilirubin,Urine Negative (Negative); Blood,Urine Negative (Negative); Color,Urine Light Yellow; Glucose,Urine (UA) 3+ (Negative); Ketones,Urine Negative (Negative); Leukocyte Esterase,Urine Negative (Negative); Nitrite,Urine Negative (Negative); PH, Urine 6.5 (5.0-8.0); Protein,Urine Negative (Negative); Specific Gravity,Urine 1.015 (1.001-1.035); Urobilinogen,Urine <2.0 mg/dL (<2.0)
[2022-11-03 20:14] LABS: % Iron Saturation 34.36 (15.00-50.00); ALT 24 U/L (10-49); AST 14 U/L (14-35); Albumin 4.2 d/dL (3.8-4.9); Albumin/Globulin Ratio 1.75 Ratio (1.60-3.17); Alkaline Phosphatase 47 U/L (41-126); BUN/Creat Ratio 17.33 Ratio (12.00-20.00); Blood Urea Nitrogen 15.6 mg/dL (9.0-27.0); Calcium 9.4 mg/dL (8.7-10.3); Carbon Dioxide 25.8 mmol/L (21.6-31.8); Chloride 98 mmol/L (96-109); Globulin 2.4 d/dL (1.6-3.3); Glucose 267 mg/dL (70-110); Iron 100 UG/DL (65-175); Magnesium 1.9 mg/dL (1.5-2.4); Phosphorus 3.3 mg/dL (2.4-5.1); Potassium 4.6 mmol/L (3.5-5.5); Sodium 134 mmol/L (135-145); Total Bilirubin 0.3 mg/dL (0.3-1.2); Total Iron Binding Capacity 291 UG/DL (228-460); Total Protein 6.6 d/dL (6.2-8.2); Uric Acid 5.5 mg/dL (3.7-8.7)
[2022-11-03 23:30] LABS: Urine Creatinine 49.2 mg/dL (39.0-259.0)
[2022-11-04 01:57] LABS: Basophils # (A) 0.04 X 10*3/uL (0.00-0.10); Basophils % (A) 0.6 %; Eosinophils % (A) 1.4 %; HCT 40.5 % (39.6-50.0); HGB 13.4 d/dL (13.0-17.0); Lymphocytes % (A) 22.4 %; MCH 31.8 pg (27.0-32.0); MCHC 33.1 d/dL (32.0-37.0); MCV 96.2 FL (80.0-97.0); NRBC Per 100 WBC 0 X 10*3/uL (0.00-0.01); Neutrophils # (A) 4.82 X 10*3/uL (1.80-7.70); Neutrophils % (A) 67.6 %; Platelet Count 197 X 10*3/uL (140-440); RBC 4.21 X 10*6/uL (4.40-5.60); RDW 12.9 % (11.5-14.5); WBC 7.13 X 10*3/uL (4.50-10.00)
== END | disposition home or self-care (01) ==
LOC: LABWHC1 15:10
PROVIDERS: ATTEND Internal Medicine Nephrology
DX: E55.9 Vitamin D deficiency, unspecified (principal); D63.1 Anemia in chronic kidney disease; N39.0 Urinary tract infection, site not specified; N18.2 Chronic kidney disease, stage 2 (mild); N25.81 Secondary hyperparathyroidism of renal origin; M10.9 Gout, unspecified; R80.9 Proteinuria, unspecified
CPT/HCPCS: 36415; 80053; 81003; 82043; 82306; 82570; 82728; 83540; 83550; 83735; 83970; 84100; 84550; 85025

== ENCOUNTER 2023-01-25 00:01 | Emergency (ER) | payer OTHER ==
[2023-01-25] MEDS ORDERED: SULFAMETHOX-TMP 800-160MG 1 EACH TAB PO STA ×2 (02:41→02:42)
[2023-01-25] MEDS ORDERED: CEPHALEXIN 500 MG CAP PO STA (02:41)
--- NOTE | 2023-01-25 02:42 | ED ---
Extremity Problem HPI - General Chief complaint: Extremity Problem,Nontraumatic Stated complaint: cellulitis left leg Time Seen by Provider: 01/25/23 02:06 Source: patient, RN notes reviewed, old records reviewed Mode of arrival: ambulatory Limitations: no limitations - History of Present Illness Initial comments: This is a 62-year-old male to the emergency department for evaluation. Patient presents today for evaluation regards to not feeling well. Patient has complaints of left lower extremity redness swelling with prior hospital admissions for similar. Patient does admit to recent homelessness. MD Complaint: extremity pain, extremity swelling, joint pain -: hour(s) Location: left, lower extremity History of Same: No -: Yes myalgia Radiation: none Severity scale (1-10): 4 Quality: aching Consistency: constant Improves with: nothing Worsens with: nothing Associated Symptoms: denies other symptoms - Related Data Home Medications Medication Instructions Recorded Confirmed Lisinopril-Hctz 20-25 mg 1 tab PO QAM 09/22/13 05/04/22 [Zestoretic 20-25] Cyclobenzaprine [Flexeril] 10 mg PO TID PRN 10/15/13 05/04/22 Ergocalciferol [Vitamin D2 50,000 unit PO Q30D 12/12/16 05/04/22 (DRISDOL)] Nystatin 100,000Unit/gm Cream 1 applic TOPICAL BID PRN 12/12/16 05/04/22 [Mycostatin Cream] Omeprazole 20 mg PO QAM 12/12/16 05/04/22 Triamcinolone 0.1% Cream [Kenalog 1 applic TOPICAL BID PRN 12/12/16 05/04/22 0.1% Cream] HYDROcodone/APAP 10-325MG [[place] 1 tab PO BID PRN 04/29/18 12/07/20 10-325] Morphine Sulfate [Ms Contin] 15 mg PO Q12HR 09/02/19 05/04/22 Insulin Lispro [Insulin Lispro 10 units SQ AC-TID 12/08/19 05/04/22 Kwikpen U-100] Lisinopril-Hctz 20-25 mg 0.5 tab PO HS PRN 12/08/19 05/04/22 [Zestoretic 20-25] Metoprolol Succinate [Toprol XL] 25 mg PO HS 12/08/19 05/04/22 Cholecalciferol [Vitamin D3 (25 50 mcg PO DAILY 06/28/20 05/04/22 Mcg = 1000 Iu)] Clotrimazole Cream [Lotrimin Cream] 1 applic TOPICAL BID PRN 06/28/20 05/04/22 Ferrous Sulfate [Iron (65 MG 325 mg PO DAILY 06/28/20 05/04/22 Elemental)] Insulin Lispro [humaLOG Kwikpen] 12 unit SQ HS 06/28/20 05/04/22 Magnesium 250 mg PO DAILY 06/28/20 05/04/22 Tamsulosin HCl [Flomax] 0.4 mg PO HS 06/28/20 05/04/22 Insulin Glargine,Hum.rec.anlog 100 unit SQ HS 09/27/20 05/04/22 [Lantus Solostar Pen] metFORMIN HCL ER [Glucophage XR] 2,000 mg PO HS 09/27/20 05/04/22 Ascorbic Acid [Vitamin C] 1,000 mg PO DAILY 12/07/20 05/04/22 Cyanocobalamin (Vitamin B-12) 1,000 mcg PO DAILY 12/07/20 05/04/22 [Vitamin B-12] Zinc Gluconate [Zinc] 40 mg PO DAILY 12/07/20 05/04/22 Previous Rx's Medication Instructions Recorded Penicillin V Potassium [Pen Vee K] 500 mg PO Q6H 10 Days #40 tablet 03/26/21 Sulfamethox-Tmp 800-160Mg [Bactrim 1 each PO Q12HR #20 tab 03/27/21 DS 800-160 mg] Cephalexin [Keflex] 500 mg PO Q6HR #40 cap 01/25/23 Sulfamethox-Tmp 800-160Mg [Bactrim 2 tab PO BID #40 tab 01/25/23 DS 800-160 mg] Allergies Allergy/AdvReac Type Severity Reaction Status Date / Time tramadol HCl [From Ultram] Allergy Unknown Abdominal Verified 01/25/23 00:26 Pain, diarrhea, severe headache pregabalin [From Lyrica] AdvReac Unknown INCREASED Verified 01/25/23 00:26 DEPRESSION propoxyphene napsylate AdvReac Unknown LOSS OF Verified 01/25/23 00:26 [From Darvocet-N 100] COORDINATION artficial sweetners Allergy Diarrhea, Uncoded 01/25/23 00:26 headache ANTIDEPRESSANTS AdvReac STATES Uncoded 01/25/23 00:26 INCREASE DEPRESSION Review of Systems ROS Statement: Those systems with pertinent positive or pertinent negative responses have been documented in the HPI. ROS Other: All systems not noted in ROS Statement are negative. Past Medical History Past Medical History: Blood Disorder, Chest Pain / Angina, Diabetes Mellitus, Fibromyalgia, Hearing Disorder / Deafness, Hypertension, Musculoskeletal Disorder, Osteoarthritis (OA), Renal Disease, Skin Disorder, Sleep Apnea/CPAP/BIPAP Additional Past Medical History / Comment(s): MIGRAINES, DIVERTICULOSIS, HIATAL HERNIA, umbilical hernia, ATHLETES FOOT, RINGING IN EARS, DDD, yeast rash in armpits and groins, occ. urinary incontinence, Monoclonal Gammapathy of Undetermined Significance(MGUS). Hx cellulitis. Has cpap machine. Coivd 07/07, stage 3 renal disease History of Any Multi-Drug Resistant Organisms: None Reported Past Surgical History: Orthopedic Surgery Additional Past Surgical History / Comment(s): RIGHT ROTATOR CUFF, RT CARPAL TUNNEL, BILATERAL INGUINAL HERNIA REPAIRS, ARTHROSCOPY BILATERAL KNEES, RIGHT ELBOW CUBITAL ULNAR SURGERY, PREVIOUS PAIN CLINIC PROCEDURES. Past Anesthesia/Blood Transfusion Reactions: Previous Problems w/ Anesthesia, Family History of Problems w/ Anesthesia Additional Past Anesthesia/Blood Transfusion Reaction / Comment(s): STATES HE NEEDED MORE ANESTHESIA, " I have a high tolerance". Mother experienced memory issues after anesthesia "for a couple weeks". Past Psychological History: Anxiety, Depression, PTSD Smoking Status: Never smoker Past Alcohol Use History: None Reported Past Drug Use History: Marijuana - Past Family History Mother Family Medical History: Deep Vein Thrombosis (DVT) Additional Family Medical History / Comment(s): Precancerous cells - uterine. Sister(s) Family Medical History: Cancer Additional Family Medical History / Comment(s): Skin Cancer. Father Family Medical History: Diabetes Mellitus Additional Family Medical History / Comment(s): Diverticular disease. General Exam Limitations: no limitations General appearance: alert, in no apparent distress Head exam: Present: atraumatic, normocephalic, normal inspection Eye exam: Present: normal appearance, PERRL, EOMI. Absent: scleral icterus, conjunctival injection, periorbital swelling ENT exam: Present: normal exam, mucous membranes moist Neck exam: Present: normal inspection. Absent: tenderness, meningismus, lymphadenopathy Respiratory exam: Present: normal lung sounds bilaterally. Absent: respiratory distress, wheezes, rales, rhonchi, stridor Cardiovascular Exam: Present: regular rate, normal rhythm, normal heart sounds. Absent: systolic murmur, diastolic murmur, rubs, gallop, clicks GI/Abdominal exam: Present: soft, normal bowel sounds. Absent: distended, tenderness, guarding, rebound, rigid Extremities exam: Present: normal inspection, full ROM, normal capillary refill, other (Left lower extremity redness and edema). Absent: tenderness, pedal edema, joint swelling, calf tenderness Back exam: Present: normal inspection Neurological exam: Present: alert, oriented X3, CN II-XII intact Psychiatric exam: Present: normal affect, normal mood Skin exam: Present: warm, dry, intact, normal color. Absent: rash Course Vital Signs 01/25/23 01/25/23 00:21 02:59 Temperature 98.1 F 98 F Pulse Rate 86 85 Respiratory 18 17 Rate Blood Pressure 169/79 158/68 O2 Sat by Pulse 99 98 Oximetry - Reevaluation(s) Reevaluation #1: 01/25/23 Medical records reviewed Reevaluation #2: 01/25/23 Patient symptoms unchanged Reevaluation #3: 01/25/23 Patient informed results questions answered Reevaluation #4: Was pt. sent in by a medical professional or institution (, PA, HORTICULTURAL FARMWORKER, urgent care, hospital, or [place] health care facility...) When possible be specific @ -no Did you speak to anyone other than the patient for history (EMS, parent, family, police, friend...)? What history was obtained from this source @ -no Did you review nursing and triage notes (agree or disagree)? Why? @ -agree Are old charts reviewed (outside hosp., previous admission, EMS record, old EKG, old radiological studies, urgent care reports/EKG's, [place] health care facility records)? Report findings @ -yes Differential Diagnosis (chest pain, altered mental status, abdominal pain women, abdominal pain men, vaginal bleeding, weakness, fever, dyspnea, syncope, headach e, dizziness, GI bleed, back pain, seizure, CVA, palpatations, mental health, musculoskeletal)? @ -prior EKG interpreted by me (3pts min.). @ -no X-rays interpreted by me (1pt min.). @ -no CT interpreted by me (1pt min.). @ -no U/S interpreted by me (1pt. min.). @ -no What testing was considered but not performed or refused? (CT, X-rays, U/S, labs)? Why? @ -none What meds were considered but not given or refused? Why? @ -none Did you discuss the management of the patient with other professionals (professionals i.e. , PA, HORTICULTURAL FARMWORKER, lab, RT, psych nurse, social service liaison, people greeter, teacher, credit compliance officer, returned case inspector)? Give summary @ -no Was smoking cessation discussed for >3mins.? @ -no Was critical care preformed (if so, how long)? @ -no Were there social determinants of health that impacted care today? How? (Homelessness, low income, unemployed, alcoholism, drug addiction, transportation, low edu. Level, literacy, decrease access to med. care, long term, rehab)? @ -none Was there de-escalation of care discussed even if they declined (Discuss DNR or withdrawal of care, Hospice)? DNR status @ -no What co-morbidities impacted this encounter? (DM, HTN, Smoking, COPD, CAD, Cancer, CVA, ARF, Chemo, Hep., AIDS, mental health diagnosis, sleep apnea, morbid obesity)? @ -none Was patient admitted / discharged? Hospital course, mention meds given and route, prescriptions, significant lab abnormalities, going to OR and other pertinent info. @ - 62 male to the emergency department for evaluation of left leg cellulitis, patient has no significant findings here in the ER, patient be placed on oral antibiotics and discharged home to continue monitoring Discharge Undiagnosed new problem with uncertain prognosis? @ -no Drug Therapy requiring intensive monitoring for toxicity (Heparin, Nitro, Insulin, Cardizem)? @ -no Were any procedures done? @ -no Diagnosis/symptom? @ -Left leg cellulitis recurrent Acute, or Chronic, or Acute on Chronic? @ -Acute Uncomplicated (without systemic symptoms) or Complicated (systemic symptoms)? @ -Complicated Side effects of treatment? @ -no Exacerbation, Progression, or Severe Exacerbation? @ -exacerbation Poses a threat to life or bodily function? How? (Chest pain, [place], [place], pneumonia, PE, COPD, DKA, ARF, appy, cholecystitis, CVA, Diverticulitis, Homicidal, Suicidal, threat to staff... and all critical care pts) @ -no Medical Decision Making - Medical Decision Making 62 male to the emergency department for evaluation of left leg cellulitis, patient has no significant findings here in the ER, patient be placed on oral antibiotics and discharged home to continue monitoring Disposition Clinical Impression: Left leg cellulitis Disposition: HOME SELF-CARE Condition: Good Instructions (If sedation given, give patient instructions): Cellulitis (ED) Prescriptions: Sulfamethox-Tmp 800-160Mg [Bactrim DS 800-160 mg] 2 tab PO BID #40 tab Cephalexin [Keflex] 500 mg PO Q6HR #40 cap Is patient prescribed a controlled substance at d/c from ED?: No Referrals: Jagdish Palm DO [Primary Care Provider] - 1-2 days Time of Disposition: 02:40
[2023-01-25 03:18] VITALS: BP 158/68; PULSE 85; RESP 17; TEMP 98
== END 2023-01-25 03:10 | disposition home or self-care (01) ==
LOC: EC 00:01
DX: L03.116 Cellulitis of left lower limb (principal); E11.9 Type 2 diabetes mellitus without complications; I10 Essential (primary) hypertension; G47.30 Sleep apnea, unspecified; Z79.4 Long term (current) use of insulin; Z86.59 Personal history of other mental and behavioral disorders; Z79.899 Other long term (current) drug therapy; Z88.0 Allergy status to penicillin; Z88.2 Allergy status to sulfonamides; Z88.1 Allergy status to other antibiotic agents; Z88.8 Allergy status to other drugs, medicaments and biological substances; Z88.5 Allergy status to narcotic agent
CPT/HCPCS: 99283

== ENCOUNTER 2023-02-02 21:51 | Emergency (ER) | payer OTHER ==
[2023-02-02 22:53] VITALS: RESP 18; TEMP 97.9
[2023-02-02] MEDS ORDERED: HYDROmorphone 1 MG/ML 1 ML SYRINGE IVP STA (23:56)
[2023-02-03 00:32] LABS: Basophils % (A) 0 %; Eosinophils # (A) 0.4 k/uL (0-0.7); Eosinophils % (A) 6 %; HCT 42.2 % (39.0-53.0); HGB 14.2 gm/dL (13.0-17.5); Lymphocytes # (A) 2.1 k/uL (1.0-4.8); Lymphocytes % (A) 32 %; MCH 32.5 pg (25.0-35.0); MCHC 33.6 g/dL (31.0-37.0); MCV 96.7 fL (80.0-100.0); Mean Platelet Volume 8.4; Monocytes # (A) 0.4 k/uL (0-1.0); Monocytes % (A) 7 %; Neutrophils # (A) 3.4 k/uL (1.3-7.7); Neutrophils % (A) 53 %; Platelet Count 152 k/uL (150-450); RBC 4.36 m/uL (4.30-5.90); RDW 13.1 % (11.5-15.5); WBC 6.5 k/uL (3.8-10.6)
[2023-02-03 01:11] LABS: ALT 22 U/L (4-49); AST 24 U/L (17-59); African American GFR (CKD) 53 (>60 ml/min/1.73 sqM); Albumin 4.1 g/dL (3.5-5.0); Alkaline Phosphatase 44 U/L (38-126); Anion Gap 11 mmol/L; Blood Urea Nitrogen 30 mg/dL (9-20); Calcium 9.5 mg/dL (8.4-10.2); Carbon Dioxide 24 mmol/L (22-30); Chloride 99 mmol/L (98-107); Glucose 87 mg/dL (74-99); Non-African American GFR(CKD) 46 (>60 ml/min/1.73 sqM); Potassium 4.6 mmol/L (3.5-5.1); Sodium 134 mmol/L (137-145); Total Bilirubin 0.5 mg/dL (0.2-1.3); Total Protein 7.4 g/dL (6.3-8.2)
--- NOTE | 2023-02-03 03:39 | XR ---
EXAM: XR Left Foot Complete, 3 or More Views CLINICAL HISTORY: ITS.REASON XR Reason: pain TECHNIQUE: Frontal, lateral and oblique views of the left foot. COMPARISON: No relevant prior studies available. FINDINGS: Bones/joints: There is dislocation of the second metatarsophalangeal joint. Hallux valgus deformity with moderate sized bony exostosis on the first metatarsal head and mild degenerative arthropathy of the first metatarsal phalangeal joint. No acute fracture. Soft tissues: Mild soft tissue swelling over the first metatarsal head. No radiopaque foreign body. IMPRESSION: Dislocation of the second metatarsophalangeal joint pain Hallux valgus deformity with bunion formation.
--- NOTE | 2023-02-03 03:40 | XR ---
EXAM: XR Left Tibia and Fibula, 2 Views CLINICAL HISTORY: ITS.REASON XR Reason: pain TECHNIQUE: Frontal and lateral views of the left tibia and fibula. COMPARISON: No relevant prior studies available. FINDINGS: Bones/joints: Unremarkable. No acute fracture. No dislocation. Soft tissues: Subcutaneous edema. No radiopaque foreign body. IMPRESSION: No evidence of acute fracture or dislocation. There is no subcutaneous air radiopaque body. Subcutaneous edema.
--- NOTE | 2023-02-03 04:01 | US ---
EXAM: US Duplex Left Lower Extremity Veins CLINICAL HISTORY: pain TECHNIQUE: Real-time duplex ultrasound scan of the left lower extremity veins integrating B-mode two-dimensional vascular structure, Doppler spectral analysis, color flow Doppler imaging and compression. COMPARISON: No relevant prior studies available. FINDINGS: Deep veins: Unremarkable. No DVT in the visualized common femoral, femoral, proximal deep femoral or popliteal veins. The veins demonstrate normal color flow, are normally compressible, with normal phasic flow and/or augmentation response. Superficial veins: No thrombus seen. Soft tissues: No acute findings. No popliteal cyst. IMPRESSION: No evidence of DVT in the left lower extremity.
--- NOTE | 2023-02-03 04:03 | ED ---
General Adult HPI - General Chief complaint: Recheck/Abnormal Lab/Rx Stated complaint: Cellulitis Left Leg Time Seen by Provider: 02/02/23 23:42 Source: patient Mode of arrival: ambulatory Limitations: no limitations - History of Present Illness Initial comments: 62-year-old male presenting with chief complaint of left foot pain. Patient has had recent cellulitis to the left leg. He was seen here recently and started on Keflex and Bactrim. He was seen at his video camera operator's office today and was advised to come to the ER due to his pain. He is still taking the antibiotics from his most recent visit. No new injury or trauma. Patient has diabetes and peripheral neuropathy. No fevers or chills. No nausea or vomiting. No chest pain or difficulty breathing. - Related Data Home Medications Medication Instructions Recorded Confirmed Lisinopril-Hctz 20-25 mg 1 tab PO QAM 09/22/13 05/04/22 [Zestoretic 20-25] Cyclobenzaprine [Flexeril] 10 mg PO TID PRN 10/15/13 05/04/22 Ergocalciferol [Vitamin D2 50,000 unit PO Q30D 12/12/16 05/04/22 (DRISDOL)] Nystatin 100,000Unit/gm Cream 1 applic TOPICAL BID PRN 12/12/16 05/04/22 [Mycostatin Cream] Omeprazole 20 mg PO QAM 12/12/16 05/04/22 Triamcinolone 0.1% Cream [Kenalog 1 applic TOPICAL BID PRN 12/12/16 05/04/22 0.1% Cream] HYDROcodone/APAP 10-325MG [[place] 1 tab PO BID PRN 04/29/18 12/07/20 10-325] Morphine Sulfate [Ms Contin] 15 mg PO Q12HR 09/02/19 05/04/22 Insulin Lispro [Insulin Lispro 10 units SQ AC-TID 12/08/19 05/04/22 Kwikpen U-100] Lisinopril-Hctz 20-25 mg 0.5 tab PO HS PRN 12/08/19 05/04/22 [Zestoretic 20-25] Metoprolol Succinate [Toprol XL] 25 mg PO HS 12/08/19 05/04/22 Cholecalciferol [Vitamin D3 (25 50 mcg PO DAILY 06/28/20 05/04/22 Mcg = 1000 Iu)] Clotrimazole Cream [Lotrimin Cream] 1 applic TOPICAL BID PRN 06/28/20 05/04/22 Ferrous Sulfate [Iron (65 MG 325 mg PO DAILY 06/28/20 05/04/22 Elemental)] Insulin Lispro [humaLOG Kwikpen] 12 unit SQ HS 06/28/20 05/04/22 Magnesium 250 mg PO DAILY 06/28/20 05/04/22 Tamsulosin HCl [Flomax] 0.4 mg PO HS 06/28/20 05/04/22 Insulin Glargine,Hum.rec.anlog 100 unit SQ HS 09/27/20 05/04/22 [Lantus Solostar Pen] metFORMIN HCL ER [Glucophage XR] 2,000 mg PO HS 09/27/20 05/04/22 Ascorbic Acid [Vitamin C] 1,000 mg PO DAILY 12/07/20 05/04/22 Cyanocobalamin (Vitamin B-12) 1,000 mcg PO DAILY 12/07/20 05/04/22 [Vitamin B-12] Zinc Gluconate [Zinc] 40 mg PO DAILY 12/07/20 05/04/22 Previous Rx's Medication Instructions Recorded Penicillin V Potassium [Pen Vee K] 500 mg PO Q6H 10 Days #40 tablet 03/26/21 Sulfamethox-Tmp 800-160Mg [Bactrim 1 each PO Q12HR #20 tab 03/27/21 DS 800-160 mg] Cephalexin [Keflex] 500 mg PO Q6HR #40 cap 01/25/23 Sulfamethox-Tmp 800-160Mg [Bactrim 2 tab PO BID #40 tab 01/25/23 DS 800-160 mg] Allergies Allergy/AdvReac Type Severity Reaction Status Date / Time tramadol HCl [From Ultram] Allergy Unknown Abdominal Verified 02/02/23 22:51 Pain, diarrhea, severe headache pregabalin [From Lyrica] AdvReac Unknown INCREASED Verified 02/02/23 22:51 DEPRESSION propoxyphene napsylate AdvReac Unknown LOSS OF Verified 02/02/23 22:51 [From Darvocet-N 100] COORDINATION artficial sweetners Allergy Diarrhea, Uncoded 11/17/23 22:51 headache ANTIDEPRESSANTS AdvReac STATES Uncoded 02/02/23 22:51 INCREASE DEPRESSION Review of Systems ROS Statement: Those systems with pertinent positive or pertinent negative responses have been documented in the HPI. ROS Other: All systems not noted in ROS Statement are negative. Past Medical History Past Medical History: Blood Disorder, Chest Pain / Angina, Diabetes Mellitus, Fibromyalgia, Hearing Disorder / Deafness, Hypertension, Musculoskeletal Disorder, Osteoarthritis (OA), Renal Disease, Skin Disorder, Sleep Apnea/CPAP/BIPAP Additional Past Medical History / Comment(s): MIGRAINES, DIVERTICULOSIS, HIATAL HERNIA, umbilical hernia, ATHLETES FOOT, RINGING IN EARS, DDD, yeast rash in armpits and groins, occ. urinary incontinence, Monoclonal Gammapathy of Unde termined Significance(MGUS). Hx cellulitis. Has cpap machine. Coivd 07/07, stage 3 renal disease History of Any Multi-Drug Resistant Organisms: None Reported Past Surgical History: Orthopedic Surgery Additional Past Surgical History / Comment(s): RIGHT ROTATOR CUFF, RT CARPAL TUNNEL, BILATERAL INGUINAL HERNIA REPAIRS, ARTHROSCOPY BILATERAL KNEES, RIGHT ELBOW CUBITAL ULNAR SURGERY, PREVIOUS PAIN CLINIC PROCEDURES. Past Anesthesia/Blood Transfusion Reactions: Previous Problems w/ Anesthesia, Family History of Problems w/ Anesthesia Additional Past Anesthesia/Blood Transfusion Reaction / Comment(s): STATES HE NEEDED MORE ANESTHESIA, " I have a high tolerance". Mother experienced memory issues after anesthesia "for a couple weeks". Past Psychological History: Anxiety, Depression, PTSD Smoking Status: Never smoker Past Alcohol Use History: None Reported Past Drug Use History: Marijuana - Past Family History Mother Family Medical History: Deep Vein Thrombosis (DVT) Additional Family Medical History / Comment(s): Precancerous cells - uterine. Sister(s) Family Medical History: Cancer Additional Family Medical History / Comment(s): Skin Cancer. Father Family Medical History: Diabetes Mellitus Additional Family Medical History / Comment(s): Diverticular disease. General Exam Limitations: no limitations General appearance: alert, in no apparent distress Head exam: Present: atraumatic, normocephalic, normal inspection Eye exam: Present: normal appearance, EOMI Neck exam: Present: normal inspection, full ROM Respiratory exam: Absent: respiratory distress Left Lower Leg exam: Present: full ROM, tenderness, swelling Ankle exam: Present: full ROM, tenderness. Absent: swelling Neurovascular tendon exam: Present: no vascular compromise Neurological exam: Present: alert, oriented X3 Psychiatric exam: Present: normal affect, normal mood Skin exam: Present: warm, dry, intact, normal color. Absent: rash Course Vital Signs 02/02/23 02/03/23 02/03/23 22:49 00:54 04:14 Temperature 97.9 F Pulse Rate 69 65 76 Respiratory 18 18 18 Rate Blood Pressure 139/66 132/73 108/64 O2 Sat by Pulse 97 99 95 Oximetry Medical Decision Making - Medical Decision Making Was pt. sent in by a medical professional or institution (, PA, SKE[employer] Y[employer] EXAMINER, urgent care, hospital, or jail...) When possible be specific @ -Sent by video camera operator Did you speak to anyone other than the patient for history (EMS, parent, family, police, friend...)? What history was obtained from this source @ -No Did you review nursing and triage notes (agree or disagree)? Why? @ -I reviewed and agree with nursing and triage notes Were old charts reviewed (outside hosp., previous admission, EMS record, old EKG, old radiological studies, urgent care reports/EKG's, jail records)? Report findings @ -No old charts were reviewed Differential Diagnosis (chest pain, altered mental status, abdominal pain women, abdominal pain men, vaginal bleeding, weakness, fever, dyspnea, syncope, headache, dizziness, GI bleed, back pain, seizure, CVA, palpatations, mental health, musculoskeletal)? @ -Differential Musculoskeletal Muscular strain, contusion, ligament sprain, fracture, arthritis, septic arthritis, bursitis, cellulitis, muscle spasm, nerve compression, DVT, arterial occlusion, herpes zoster, electrolyte abnormality, tumor.... This is not meant to be in all inclusive list EKG interpreted by me (3pts min.). @ -As above X-rays interpreted by me (1pt min.). @ -Dislocation of the second metatarsophalangeal joint. Hallux valgus deformity with bunion formation. Tibia-fibula x-ray: No evidence of acute fracture or dislocation. There is no subcutaneous air or radiopaque foreign body. Subcutaneous edema. CT interpreted by me (1pt min.). @ -None done U/S interpreted by me (1pt. min.). @ -Ultrasound shows no evidence of DVT What testing was considered but not performed or refused? (CT, X-rays, U/S, lab s)? Why? @ -None What meds were considered but not given or refused? Why? @ -None Did you discuss the management of the patient with other professionals (professionals i.e. , PA, [employer] EXAMINER, lab, RT, psych nurse, psychotherapist social worker, healthcare science specialist, teacher, chief information officer, field nurse case manager)? Give summary @ -No Was smoking cessation discussed for >3mins.? @ -No Was critical care preformed (if so, how long)? @ -No Were there social determinants of health that impacted care today? How? (Homelessness, low income, unemployed, alcoholism, drug addiction, transportation, low edu. Level, literacy, decrease access to med. care, care home, rehab)? @ -No Was there de-escalation of care discussed even if they declined (Discuss DNR or withdrawal of care, Hospice)? DNR status @ -No What co-morbidities impacted this encounter? (DM, HTN, Smoking, COPD, CAD, Cancer, CVA, ARF, Chemo, Hep., AIDS, mental health diagnosis, sleep apnea, morbid obesity)? @ -Diabetes Was patient admitted / discharged? Hospital course, mention meds given and route, prescriptions, significant lab abnormalities, going to OR and other pertinent info. @ -62-year-old male presenting with concerns for recurrent cellulitis to the le ft foot. Patient was recently started on antibiotics and is continuing to take them. He states that he has been having some increasing tenderness to his foot. On physical exam he is neurovascularly intact. There is no marked erythema. There is some mild swelling. Patient is nontoxic appearing. He is requesting Dilaudid by name. Lab work shows no leukocytosis or anemia. X-rays show no evidence of fracture. Foot x-ray shows dislocation of the second metatarsophalangeal joint, patient states that this has been the case for years and he currently sees video camera operator. No subcutaneous air or foreign body. Ultrasound negative for DVT. Patient is educated on today's findings, instructed to continue his course of antibiotics.Follow-up with PCP. Report back to ER with any new or worsening symptoms. Discussed return parameters and answered all questions. Patient conveyed verbal understanding and agreed to the plan. I discussed this case in detail with my attending Dr. Beckwith Undiagnosed new problem with uncertain prognosis? @ -No Drug Therapy requiring intensive monitoring for toxicity (Heparin, Nitro, Insul in, Cardizem)? @ -No Were any procedures done? @ -No Diagnosis/symptom? @ -Foot pain Acute, or Chronic, or Acute on Chronic? @ -Acute Uncomplicated (without systemic symptoms) or Complicated (systemic symptoms)? @ -uncomplicated Side effects of treatment? @ -No Exacerbation, Progression, or Severe Exacerbation? @ -No Poses a threat to life or bodily function? How? (Chest pain, [place], [place], pneumonia, PE, COPD, DKA, ARF, appy, cholecystitis, CVA, Diverticulitis, Homicidal, Suicidal, threat to staff... and all critical care pts) @ -No - Lab Data Result diagrams: 02/03/23 00:17 02/03/23 00:17 Lab Results 02/03/23 02/03/23 Range/Units 00:17 00:17 WBC 6.5 (3.8-10.6) k/uL RBC 4.36 (4.30-5.90) m/uL Hgb 14.2 (13.0-17.5) gm/dL Hct 42.2 (39.0-53.0) % MCV 96.7 (80.0-100.0) fL MCH 32.5 (25.0-35.0) pg MCHC 33.6 (31.0-37.0) g/dL RDW 13.1 (11.5-15.5) % Plt Count 152 (150-450) k/uL MPV 8.4 Neutrophils % 53 % Lymphocytes % 32 % Monocytes % 7 % Eosinophils % 6 % Basophils % 0 % Neutrophils # 3.4 (1.3-7.7) k/uL Lymphocytes # 2.1 (1.0-4.8) k/uL Monocytes # 0.4 (0-1.0) k/uL Eosinophils # 0.4 (0-0.7) k/uL Basophils # 0.0 (0-0.2) k/uL Sodium 134 L (137-145) mmol/L Potassium 4.6 (3.5-5.1) mmol/L Chloride 99 (98-107) mmol/L Carbon Dioxide 24 (22-30) mmol/L Anion Gap 11 mmol/L BUN 30 H (9-20) mg/dL Creatinine 1.59 H (0.66-1.25) mg/dL Est GFR (CKD-EPI)AfAm 53 (>60 ml/min/1.73 sqM) Est GFR (CKD-EPI)NonAf 46 (>60 ml/min/1.73 sqM) Glucose 87 (74-99) mg/dL Calcium 9.5 (8.4-10.2) mg/dL Total Bilirubin 0.5 (0.2-1.3) mg/dL AST 24 (17-59) U/L ALT 22 (4-49) U/L Alkaline Phosphatase 44 (38-126) U/L Total Protein 7.4 (6.3-8.2) g/dL Albumin 4.1 (3.5-5.0) g/dL Disposition Clinical Impression: Foot pain Disposition: HOME SELF-CARE Condition: Good Instructions (If sedation given, give patient instructions): Cellulitis (ED), Metatarsalgia (DC) Additional Instructions: Follow-up with PCP and video camera operator. Report back to ER with any new or worsening symptoms. Is patient prescribed a controlled substance at d/c from ED?: No Referrals: Jagdish Palm DO [Primary Care Provider] - 1-2 days Time of Disposition: 04:23
[2023-02-03 04:21] VITALS: BP 108/64; PULSE 76
== END 2023-02-03 04:26 | disposition home or self-care (01) ==
LOC: EC 21:51
DX: M79.672 Pain in left foot (principal); E11.9 Type 2 diabetes mellitus without complications; I10 Essential (primary) hypertension; M19.90 Unspecified osteoarthritis, unspecified site; F41.9 Anxiety disorder, unspecified; F32.A Depression, unspecified; F12.90 Cannabis use, unspecified, uncomplicated; Z88.8 Allergy status to other drugs, medicaments and biological substances; Z79.4 Long term (current) use of insulin; Z79.84 Long term (current) use of oral hypoglycemic drugs; Z79.899 Other long term (current) drug therapy
CPT/HCPCS: 36415; 80053; 85025; 73590; 73630; 93971; 99284; 96374; J1170

== ENCOUNTER 2023-02-04 02:05 | Emergency (ER) | payer OTHER ==
[2023-02-04 02:21] VITALS: RESP 18; TEMP 98
[2023-02-04] MEDS ORDERED: MECLIZINE 12.5 MG TAB PO STA (02:23)
--- NOTE | 2023-02-04 02:25 | ED ---
General Adult HPI - General Chief complaint: Dizziness Stated complaint: Dizziness, Nausea, Confusion Time Seen by Provider: 02/04/23 02:13 Source: patient, RN notes reviewed, old records reviewed Mode of arrival: wheelchair Limitations: no limitations - History of Present Illness Initial comments: 62-year-old male presents with lightheadedness. Patient states he has not had anything to eat or drink in the past 24 hours. He states he is currently ho meless. He was not certain if this was possibly a side effect to the antibiotic he was prescribed for left leg cellulitis. He states that this is significantly improved. He denies fever. Denies abdominal pain. Denies focal numbness or weakness. - Related Data Home Medications Medication Instructions Recorded Confirmed Lisinopril-Hctz 20-25 mg 1 tab PO QAM 09/22/13 05/04/22 [Zestoretic 20-25] Cyclobenzaprine [Flexeril] 10 mg PO TID PRN 10/15/13 05/04/22 Ergocalciferol [Vitamin D2 50,000 unit PO Q30D 12/12/16 05/04/22 (DRISDOL)] Nystatin 100,000Unit/gm Cream 1 applic TOPICAL BID PRN 12/12/16 05/04/22 [Mycostatin Cream] Omeprazole 20 mg PO QAM 12/12/16 05/04/22 Triamcinolone 0.1% Cream [Kenalog 1 applic TOPICAL BID PRN 12/12/16 05/04/22 0.1% Cream] HYDROcodone/APAP 10-325MG [[place] 1 tab PO BID PRN 04/29/18 12/07/20 10-325] Morphine Sulfate [Ms Contin] 15 mg PO Q12HR 09/02/19 05/04/22 Insulin Lispro [Insulin Lispro 10 units SQ AC-TID 12/08/19 05/04/22 Kwikpen U-100] Lisinopril-Hctz 20-25 mg 0.5 tab PO HS PRN 12/08/19 05/04/22 [Zestoretic 20-25] Metoprolol Succinate [Toprol XL] 25 mg PO HS 12/08/19 05/04/22 Cholecalciferol [Vitamin D3 (25 50 mcg PO DAILY 06/28/20 05/04/22 Mcg = 1000 Iu)] Clotrimazole Cream [Lotrimin Cream] 1 applic TOPICAL BID PRN 06/28/20 05/04/22 Ferrous Sulfate [Iron (65 MG 325 mg PO DAILY 06/28/20 05/04/22 Elemental)] Insulin Lispro [humaLOG Kwikpen] 12 unit SQ HS 06/28/20 05/04/22 Magnesium 250 mg PO DAILY 06/28/20 05/04/22 Tamsulosin HCl [Flomax] 0.4 mg PO HS 06/28/20 05/04/22 Insulin Glargine,Hum.rec.anlog 100 unit SQ HS 09/27/20 05/04/22 [Lantus Solostar Pen] metFORMIN HCL ER [Glucophage XR] 2,000 mg PO HS 09/27/20 05/04/22 Ascorbic Acid [Vitamin C] 1,000 mg PO DAILY 12/07/20 05/04/22 Cyanocobalamin (Vitamin B-12) 1,000 mcg PO DAILY 12/07/20 05/04/22 [Vitamin B-12] Zinc Gluconate [Zinc] 40 mg PO DAILY 12/07/20 05/04/22 Previous Rx's Medication Instructions Recorded Penicillin V Potassium [Pen Vee K] 500 mg PO Q6H 10 Days #40 tablet 03/26/21 Sulfamethox-Tmp 800-160Mg [Bactrim 1 each PO Q12HR #20 tab 03/27/21 DS 800-160 mg] Cephalexin [Keflex] 500 mg PO Q6HR #40 cap 01/25/23 Sulfamethox-Tmp 800-160Mg [Bactrim 2 tab PO BID #40 tab 01/25/23 DS 800-160 mg] Allergies Allergy/AdvReac Type Severity Reaction Status Date / Time tramadol HCl [From Ultram] Allergy Unknown Abdominal Verified 02/04/23 02:12 Pain, diarrhea, severe headache pregabalin [From Lyrica] AdvReac Unknown INCREASED Verified 02/04/23 02:12 DEPRESSION propoxyphene napsylate AdvReac Unknown LOSS OF Verified 02/04/23 02:12 [From Darvocet-N 100] COORDINATION artficial sweetners Allergy Diarrhea, Uncoded 02/04/23 02:12 headache ANTIDEPRESSANTS AdvReac STATES Uncoded 02/04/23 02:12 INCREASE DEPRESSION Review of Systems ROS Statement: Those systems with pertinent positive or pertinent negative responses have been documented in the HPI. ROS Other: All systems not noted in ROS Statement are negative. Past Medical History Past Medical History: Blood Disorder, Chest Pain / Angina, Diabetes Mellitus, Fibromyalgia, Hearing Disorder / Deafness, Hypertension, Musculoskeletal Disorder, Osteoarthritis (OA), Renal Disease, Skin Disorder, Sleep Apnea/CPAP/BIPAP Additional Past Medical History / Comment(s): MIGRAINES, DIVERTICULOSIS, HIATAL HERNIA, umbilical hernia, ATHLETES FOOT, RINGING IN EARS, DDD, yeast rash in armpits and groins, occ. urinary incontinence, Monoclonal Gammapathy of Undetermined Significance(MGUS). Hx cellulitis. Has cpap machine. Coivd 07/07, stage 3 renal disease History of Any Multi-Drug Resistant Organisms: None Reported Past Surgical History: Orthopedic Surgery Additional Past Surgical History / Comment(s): RIGHT ROTATOR CUFF, RT CARPAL TUNNEL, BILATERAL INGUINAL HERNIA REPAIRS, ARTHROSCOPY BILATERAL KNEES, RIGHT ELBOW CUBITAL ULNAR SURGERY, PREVIOUS PAIN CLINIC PROCEDURES. Past Anesthesia/Blood Transfusion Reactions: Previous Problems w/ Anesthesia, Family History of Problems w/ Anesthesia Additional Past Anesthesia/Blood Transfusion Reaction / Comment(s): STATES HE NEEDED MORE ANESTHESIA, " I have a high tolerance". Mother experienced memory issues after anesthesia "for a couple weeks". Past Psychological History: Anxiety, Depression, PTSD Smoking Status: Never smoker Past Alcohol Use History: None Reported Past Drug Use History: Marijuana - Past Family History Mother Family Medical History: Deep Vein Thrombosis (DVT) Additional Family Medical History / Comment(s): Precancerous cells - uterine. Sister(s) Family Medical History: Cancer Additional Family Medical History / Comment(s): Skin Cancer. Father Family Medical History: Diabetes Mellitus Additional Family Medical History / Comment(s): Diverticular disease. General Exam Limitations: no limitations General appearance: alert, in no apparent distress Head exam: Present: atraumatic, normocephalic Eye exam: Present: normal appearance, PERRL ENT exam: Present: mucous membranes dry Neck exam: Present: normal inspection. Absent: tenderness, meningismus Respiratory exam: Present: normal lung sounds bilaterally, respiratory distress Cardiovascular Exam: Present: regular rate, normal rhythm GI/Abdominal exam: Present: soft. Absent: distended, tenderness, guarding Extremities exam: Present: normal inspection, normal capillary refill. Absent: pedal edema Neurological exam: Present: alert, oriented X3, CN II-XII intact. Absent: motor sensory deficit Psychiatric exam: Present: normal affect, normal mood Skin exam: Present: warm, dry, intact Course Vital Signs 02/04/23 02/04/23 02/04/23 02:09 03:09 04:41 Temperature 98 F Pulse Rate 69 65 72 Respiratory 18 18 18 Rate Blood Pressure 162/88 136/64 111/68 O2 Sat by Pulse 100 98 97 Oximetry - Reevaluation(s) Reevaluation #1: 02/04/23 05:13 Patient reevaluated, feeling much better after hydration and a meal. Medical Decision Making - Medical Decision Making Was pt. sent in by a medical professional or institution ([facility], [facility], urgent care, hospital, or group home...) When possible be specific @ -No Did you speak to anyone other than the patient for history (EMS, parent, family, police, friend...)? What history was obtained from this source @ -No Did you review nursing and triage notes (agree or disagree)? Why? @ -I reviewed and agree with nursing and triage notes Were old charts reviewed (outside hosp., previous admission, EMS record, old EKG, old radiological studies, urgent care reports/EKG's, group home records)? Report findings @ -No old charts were reviewed Differential Diagnosis (chest pain, altered mental status, abdominal pain women, abdominal pain men, vaginal bleeding, weakness, fever, dyspnea, syncope, headache, dizziness, GI bleed, back pain, seizure, CVA, palpatations, mental he alth, musculoskeletal)? @ Dehydration, hypoglycemia, vertigo, CVA, arrhythmia EKG interpreted by me (3pts min.). @Sinus bradycardia right bundle-branch block, rate of 53, [place] interval 147, QRS duration 140, QTC 446, no ST segment elevation. X-rays interpreted by me (1pt min.). @ -None done CT interpreted by me (1pt min.). @ -None done U/S interpreted by me (1pt. min.). @ -None done What testing was considered but not performed or refused? (CT, X-rays, U/S, labs)? Why? @ -None What meds were considered but not given or refused? Why? @ -None Did you discuss the management of the patient with other professionals (professionals i.e. , PA, [facility] PASTER, lab, RT, psych nurse, social media job titles, landfill gas collection system operator, teacher, chief digital officer, rn field case manager)? Give summary @ -No Was smoking cessation discussed for >3mins.? @ -No Was critical care preformed (if so, how long)? @ -No Were there social determinants of health that impacted care today? How? (Homelessness, low income, unemployed, alcoholism, drug addiction, transportation, low edu. Level, literacy, decrease access to med. care, longterm, rehab)? @ -No Was there de-escalation of care discussed even if they declined (Discuss DNR or withdrawal of care, Hospice)? DNR status @ -No What co-morbidities impacted this encounter? (DM, HTN, Smoking, COPD, CAD, Cancer, CVA, ARF, Chemo, Hep., AIDS, mental health diagnosis, sleep apnea, morbid obesity)? @ -Diabetes Was patient admitted / discharged? Hospital course, mention meds given and route, prescriptions, significant lab abnormalities, going to OR and other pertinent info. @ 62-year-old male with evaluation of lightheadedness. No associated chest pain. No associated numbness or weakness. No headache. Patient admits to not eating or drinking and that he is currently homeless. Given fluid and IV fluid in the emergency department. He has normal CBC, normal CMP with a creatinine of 1.29 which is improved from yesterday. Patient given meclizine and does have improvement in symptoms in the emergency department this combined with fluid and IV hydration. Undiagnosed new problem with uncertain prognosis? @ -No Drug Therapy requiring intensive monitoring for toxicity (Heparin, Nitro, Insulin, Cardizem)? @ -No Were any procedures done? @ -No Diagnosis/symptom? @ -[Dehydration Acute, or Chronic, or Acute on Chronic? @ -[Acute Uncomplicated (without systemic symptoms) or Complicated (systemic symptoms)? @ -default Side effects of treatment? @ -No Exacerbation, Progression, or Severe Exacerbation? @ -No Poses a threat to life or bodily function? How? (Chest pain, [place], [place], pneumonia, PE, COPD, DKA, ARF, appy, cholecystitis, CVA, Diverticulitis, Homicidal, Suicidal, threat to staff... and all critical care pts) @ -No - Lab Data Result diagrams: 02/04/23 03:32 02/04/23 03:32 Lab Results 02/04/23 02/04/23 Range/Units 03:32 03:32 WBC 8.0 (3.8-10.6) k/uL RBC 4.70 (4.30-5.90) m/uL Hgb 14.8 (13.0-17.5) gm/dL Hct 45.8 (39.0-53.0) % MCV 97.6 (80.0-100.0) fL MCH 31.4 (25.0-35.0) pg MCHC 32.2 (31.0-37.0) g/dL RDW 13.0 (11.5-15.5) % Plt Count 148 L (150-450) k/uL MPV 9.2 Neutrophils % 82 % Lymphocytes % 12 % Monocytes % 4 % Eosinophils % 2 % Basophils % 0 % Neutrophils # 6.5 (1.3-7.7) k/uL Lymphocytes # 0.9 L (1.0-4.8) k/uL Monocytes # 0.3 (0-1.0) k/uL Eosinophils # 0.2 (0-0.7) k/uL Basophils # 0.0 (0-0.2) k/uL Sodium 135 L (137-145) mmol/L Potassium 4.4 (3.5-5.1) mmol/L Chloride 97 L (98-107) mmol/L Carbon Dioxide 28 (22-30) mmol/L Anion Gap 10 mmol/L BUN 30 H (9-20) mg/dL Creatinine 1.29 H (0.66-1.25) mg/dL Est GFR (CKD-EPI)AfAm 68 (>60 ml/min/1.73 sqM) Est GFR (CKD-EPI)NonAf 59 (>60 ml/min/1.73 sqM) Glucose 140 H (74-99) mg/dL Calcium 10.0 (8.4-10.2) mg/dL Magnesium 1.6 (1.6-2.3) mg/dL Total Bilirubin 0.9 (0.2-1.3) mg/dL AST 24 (17-59) U/L ALT 23 (4-49) U/L Alkaline Phosphatase 48 (38-126) U/L Total Protein 7.9 (6.3-8.2) g/dL Albumin 4.6 (3.5-5.0) g/dL Disposition Clinical Impression: Dehydration Disposition: HOME SELF-CARE Condition: Fair Instructions (If sedation given, give patient instructions): Dizziness (ED), Dehydration (ED) Is patient prescribed a controlled substance at d/c from ED?: No Referrals: Jagdish Palm DO [Primary Care Provider] - 1-2 days Time of Disposition: 04:01
[2023-02-04] MEDS ORDERED: SODIUM CHLORIDE 0.9% 1,000 ML IV ONE (03:20)
[2023-02-04 03:37] LABS: Basophils % (A) 0 %; Eosinophils # (A) 0.2 k/uL (0-0.7); Eosinophils % (A) 2 %; HCT 45.8 % (39.0-53.0); HGB 14.8 gm/dL (13.0-17.5); Lymphocytes # (A) 0.9 k/uL (1.0-4.8); Lymphocytes % (A) 12 %; MCH 31.4 pg (25.0-35.0); MCHC 32.2 g/dL (31.0-37.0); MCV 97.6 fL (80.0-100.0); Mean Platelet Volume 9.2; Monocytes # (A) 0.3 k/uL (0-1.0); Monocytes % (A) 4 %; Neutrophils # (A) 6.5 k/uL (1.3-7.7); Neutrophils % (A) 82 %; Platelet Count 148 k/uL (150-450)
[2023-02-04 03:50] LABS: ALT 23 U/L (4-49); AST 24 U/L (17-59); African American GFR (CKD) 68 (>60 ml/min/1.73 sqM); Albumin 4.6 g/dL (3.5-5.0); Alkaline Phosphatase 48 U/L (38-126); Anion Gap 10 mmol/L; Blood Urea Nitrogen 30 mg/dL (9-20); Carbon Dioxide 28 mmol/L (22-30); Chloride 97 mmol/L (98-107); Glucose 140 mg/dL (74-99); Magnesium 1.6 mg/dL (1.6-2.3); Non-African American GFR(CKD) 59 (>60 ml/min/1.73 sqM); Potassium 4.4 mmol/L (3.5-5.1); Sodium 135 mmol/L (137-145); Total Bilirubin 0.9 mg/dL (0.2-1.3); Total Protein 7.9 g/dL (6.3-8.2)
[2023-02-04 04:55] VITALS: BP 111/68; PULSE 72
== END 2023-02-04 05:16 | disposition home or self-care (01) ==
LOC: EC 02:05
DX: E86.0 Dehydration (principal); I45.10 Unspecified right bundle-branch block; E11.9 Type 2 diabetes mellitus without complications; I10 Essential (primary) hypertension; G47.30 Sleep apnea, unspecified; F41.9 Anxiety disorder, unspecified; F32.A Depression, unspecified; Z79.4 Long term (current) use of insulin; Z79.84 Long term (current) use of oral hypoglycemic drugs; Z79.899 Other long term (current) drug therapy; Z59.00 Homelessness unspecified; Z88.8 Allergy status to other drugs, medicaments and biological substances
CPT/HCPCS: 36415; 80053; 83735; 85025; 93005; 96360; 99284

== ENCOUNTER → 2023-04-21 | Outpatient (CLI) | payer OTHER ==
[2023-04-21 12:10] LABS: NT-Pro-B-Type Natriuretic Pept 104 pg/mL
[2023-04-22 06:05] LABS: HCT 47.6 % (39.6-50.0); MCH 31.1 pg (27.0-32.0); MCHC 33.6 g/dL (32.0-37.0); MCV 92.6 FL (80.0-97.0); Mean Platelet Volume 11.9 FL (9.5-12.2); NRBC Per 100 WBC 0 X 10*3/uL (0.00-0.01); Platelet Count 168 X 10*3/uL (140-440); RBC 5.14 X 10*6/uL (4.40-5.60); RDW 12.4 % (11.5-14.5); WBC 8.28 X 10*3/uL (4.50-10.00)
[2023-04-22 06:50] LABS: Blood Urea Nitrogen 12.1 mg/dL (9.0-27.0); Chol/HDL Ratio 3.36 Ratio; Glucose 156 mg/dL (70-110); LDL Cholesterol,Calculated 97.9 mg/dL (0.0-131.0); VLDL Calculation 8.22 mg/dL (5.00-40.00)
[2023-04-22 06:51] LABS: ALT 28 U/L (10-49); AST 19 U/L (14-35); Albumin 4.4 g/dL (3.8-4.9); Albumin/Globulin Ratio 1.57 Ratio (1.60-3.17); Alkaline Phosphatase 48 U/L (41-126); Calcium 9.7 mg/dL (8.7-10.3); Carbon Dioxide 26.1 mmol/L (21.6-31.8); Chloride 97 mmol/L (96-109); Globulin 2.8 g/dL (1.6-3.3); Potassium 4.4 mmol/L (3.5-5.5); Sodium 137 mmol/L (135-145); Total Bilirubin 0.6 mg/dL (0.3-1.2); Total Protein 7.2 g/dL (6.2-8.2)
== END | disposition home or self-care (01) ==
LOC: LABWHC1 10:59
PROVIDERS: ATTEND Internal Medicine
DX: E11.9 Type 2 diabetes mellitus without complications (principal); E78.5 Hyperlipidemia, unspecified; R60.9 Edema, unspecified; R06.02 Shortness of breath
CPT/HCPCS: 36415; 80053; 80061; 83880; 85027

== ENCOUNTER → 2023-08-01 | Outpatient (CLI) | payer OTHER ==
[2023-08-02 08:00] LABS: HCT 43.6 % (39.0-53.0); HGB 13.5 gm/dL (13.0-17.5); MCH 31.2 pg (25.0-35.0); MCV 100.6 fL (80.0-100.0); Macrocytosis Slight; Mean Platelet Volume 10.7; Platelet Count 187 k/uL (150-450); RBC 4.34 m/uL (4.30-5.90); RDW 13.6 % (11.5-15.5); WBC 6.5 k/uL (3.8-10.6)
== END | disposition home or self-care (01) ==
LOC: LABWHC1 16:34
PROVIDERS: ATTEND Internal Medicine
DX: N18.2 Chronic kidney disease, stage 2 (mild) (principal)
CPT/HCPCS: 36415; 80053; 82306; 82728; 83540; 83550; 83735; 83970; 84100; 84550; 85027

== ENCOUNTER → 2023-08-03 | Outpatient (CLI) | payer OTHER ==
[2023-08-03 19:51] LABS: Appearance,Urine Clear (Clear); Bilirubin,Urine Negative (Negative); Blood,Urine Negative (Negative); Color,Urine Yellow (Yellow); Ketones,Urine Negative (Negative); Nitrite,Urine Negative (Negative); PH, Urine 6.5; Specific Gravity,Urine 1.019 (1.001-1.030); Urobilinogen,Urine 0.2 E.U./DL
[2023-08-03 20:11] LABS: Bacteria,Urine None Seen (None Seen)
[2023-08-03 21:13] LABS: % Iron Saturation 31.16 (15.00-50.00); ALT 18 U/L (10-49); AST 16 U/L (14-35); Albumin 4.1 g/dL (3.8-4.9); Albumin/Globulin Ratio 1.58 Ratio (1.60-3.17); Alkaline Phosphatase 53 U/L (41-126); BUN/Creat Ratio 19.55 Ratio (12.00-20.00); Blood Urea Nitrogen 21.5 mg/dL (9.0-27.0); Calcium 9.2 mg/dL (8.7-10.3); Carbon Dioxide 24.6 mmol/L (21.6-31.8); Chloride 102 mmol/L (96-109); Globulin 2.6 g/dL (1.6-3.3); Glucose 198 mg/dL (70-110); Iron 86 UG/DL (65-175); Magnesium 1.8 mg/dL (1.5-2.4); Phosphorus 3.2 mg/dL (2.4-5.1); Potassium 4.3 mmol/L (3.5-5.5); Sodium 139 mmol/L (135-145); Total Bilirubin 0.3 mg/dL (0.3-1.2); Total Iron Binding Capacity 276 UG/DL (228-460); Total Protein 6.7 g/dL (6.2-8.2); Uric Acid 4.8 mg/dL (3.7-8.7)
[2023-08-03 21:20] LABS: Urine Creatinine 88.3 mg/dL (39.0-259.0)
== END | disposition home or self-care (01) ==
LOC: LABWHC1 14:23
PROVIDERS: ATTEND Internal Medicine
DX: N18.2 Chronic kidney disease, stage 2 (mild) (principal)
CPT/HCPCS: 36415; 80053; 81001; 82043; 82306; 82570; 82728; 83540; 83550; 83735; 83970; 84100; 84550

== ENCOUNTER → 2024-01-21 | Outpatient (CLI) | payer OTHER ==
[2024-01-21 17:43] LABS: Creatinine,Urine Random 62.2 mg/dL; Protein/Creatinine Ratio,Urine 0.45
[2024-01-21 18:02] LABS: Appearance,Urine Clear (Clear); Bilirubin,Urine Negative (Negative); Blood,Urine Negative (Negative); Color,Urine Colorless; Glucose,Urine (UA) Negative (Negative); Ketones,Urine Negative (Negative); Leukocyte Esterase,Urine Negative (Negative); Nitrite,Urine Negative (Negative); Protein,Urine Trace (Negative); Specific Gravity,Urine 1.012 (1.001-1.035); Urobilinogen,Urine <2.0 mg/dL (<2.0)
[2024-01-22 02:33] LABS: Basophils # (A) 0.05 X 10*3/uL (0.00-0.10); Basophils % (A) 0.7 %; Eosinophils # (A) 0.14 X 10*3/uL (0.04-0.35); Eosinophils % (A) 1.9 %; HCT 43.4 % (39.6-50.0); HGB 13.5 g/dL (13.0-17.0); Lymphocytes # (A) 1.72 X 10*3/uL (0.90-5.00); Lymphocytes % (A) 23.6 %; MCH 30.4 pg (27.0-32.0); MCHC 31.1 g/dL (32.0-37.0); MCV 97.7 FL (80.0-97.0); Mean Platelet Volume 12.3 FL (9.5-12.2); Monocytes # (A) 0.56 X 10*3/uL (0.20-1.00); Monocytes % (A) 7.7 %; NRBC Per 100 WBC 0 X 10*3/uL (0.00-0.01); Neutrophils # (A) 4.77 X 10*3/uL (1.80-7.70); Neutrophils % (A) 65.4 %; Platelet Count 199 X 10*3/uL (140-440); RBC 4.44 X 10*6/uL (4.40-5.60); RDW 13.6 % (11.5-14.5); WBC 7.29 X 10*3/uL (4.50-10.00)
[2024-01-22 03:29] LABS: % Iron Saturation 29.62 (15.00-50.00); ALT 23 U/L (10-49); AST 18 U/L (14-35); Albumin/Globulin Ratio 1.48 Ratio (1.60-3.17); Alkaline Phosphatase 43 U/L (41-126); BUN/Creat Ratio 15.45 Ratio (12.00-20.00); Calcium 8.9 mg/dL (8.7-10.3); Carbon Dioxide 24.5 mmol/L (21.6-31.8); Chloride 103 mmol/L (96-109); Globulin 2.7 g/dL (1.6-3.3); Glucose 113 mg/dL (70-110); Iron 85 UG/DL (65-175); Magnesium 1.8 mg/dL (1.5-2.4); Phosphorus 2.6 mg/dL (2.4-5.1); Potassium 4.7 mmol/L (3.5-5.5); Sodium 138 mmol/L (135-145); Total Bilirubin 0.6 mg/dL (0.3-1.2); Total Iron Binding Capacity 287 UG/DL (228-460); Total Protein 6.7 g/dL (6.2-8.2); Uric Acid 5.5 mg/dL (3.7-8.7)
[2024-01-22 03:43] LABS: Urine Creatinine 62.2 mg/dL (39.0-259.0)
[2024-01-22 05:02] LABS: Anti-DNA, DS unit <1.0 IU/mL; DNA Double-Stranded Negative (Negative)
[2024-01-22 13:48] LABS: C-ANCA <1:20 Titer (<1:20)
== END | disposition home or self-care (01) ==
LOC: LABWHC1 16:28
PROVIDERS: ATTEND Internal Medicine
DX: N18.2 Chronic kidney disease, stage 2 (mild) (principal); R80.9 Proteinuria, unspecified
CPT/HCPCS: 36415; 80053; 81003; 82043; 82306; 82570; 82728; 83516; 83540; 83550; 83735; 83883; 83970; 84100; 84156; 84166; 84550; 85025; 86038; 86160; 86162; 86225; 86255; 86334